=== PATIENT | male | born 1940 | race Caucasian/White ===

== ENCOUNTER 2021-09-25 14:19 | Inpatient (IN) | payer MEDICARE, SELFPAY ==
--- NOTE | ~2021-09-25 | XR_ITS ---
EXAMINATION: XR CHEST CLINICAL INFORMATION: Question pneumonia COMPARISON: 04/05/2016 TECHNIQUE: Frontal view of the chest was obtained. FINDINGS: Low lung volumes crowd the bronchovascular markings. Possible streaky opacity right suprahilar region. Lower lobes are obscured from assessment. No pneumothorax. No large pleural effusion. Normal heart size. Aorta is tortuous and atherosclerotic. Colonic interposition redemonstrated. XR/XR chest 1V IMPRESSION: Limited exam. Right suprahilar streaky opacity could represent infiltrate or summation shadow.
[2021-09-25 14:40] VITALS: BP 90/30; BP 99/54; PULSE 76; PULSE 77; RESP 18; TEMP 37.4; O2SAT 94; O2SAT 96; BMI 25.0
--- NOTE | 2021-09-25 14:49 | ED_ITS ---
HPI - Male Genitourinary General Chief complaint: Urogenital-Male Stated complaint: PENIS PAIN/BLEEDING S/P PULLING F/C OUT PER EMS Time Seen by Provider: 09/25/21 14:44 Source: patient, EMS and RN notes reviewed Mode of arrival: EMS Limitations: no limitations History of Present Illness HPI Narrative: 81-year-old male came in from [facility], incidentally patient pulled Zaman catheter from his penis in complaining of penis pain. No anticoagulation therapy. Related Data Allergies Allergy/AdvReac Type Severity Reaction Status Date / Time Amivhtm-ZTZ-RfV Reductase Allergy Unknown MUSCLE Unverified 01/04/20 17:59 Inhibitor ACHES [SWXBYIO-NVE-JFZ REDUCTASE INHIBITOR] Review of Systems Review of Systems: All other systems are reviewed and are negative Constitutional: Reports as per HPI and Reports no additional constitutional complaints Eyes: Reports as per HPI and Reports no additional eye complaints Reports system reviewed and no additional complaints, except as documented Cardiovascular: Reports as per HPI and Reports no additional cardiovascular complaints Respiratory: Reports as per HPI and Reports no additional respiratory complaints Gastrointestinal: Reports as per HPI and Reports no additional gastrointestinal complaints Genitourinary: Reports no additional female genitourinary complaints Musculoskeletal: Reports no additional musculoskeletal complaints Skin/Breast: Reports system reviewed and no additional complaints, except as docu Psychiatric: Reports no additional psychiatric complaints Endocrine: Reports no additional endocrine complaints Hematologic/Lymphatic: Reports no additional hematologic/lymphatic complaints Allergic/Immunologic: Reports no additional allergic/immunologic complaints Reports system reviewed and no additional complaints, except as documented and Reports Abnormal speech present [facility] Social History Social History Advance Directives: No Advance Directives Information Provided: No Physical Exam Vital Signs: Vital Signs: Last Vital Signs Temp 99.4 F 09/25/21 14:40 Pulse 76 09/25/21 14:40 Resp 18 09/25/21 14:40 BP 99/54 L 09/25/21 14:40 Pulse Ox 96 09/25/21 14:40 O2 Del Method 09/25/21 14:40 BMI result Body Mass Index 25.0 Vital signs have been reviewed as appeared to be correct. Blood pressure normal. Heart rate normal. Respiration rate normal. Temperature normal. Oxygen saturation normal. Appearance: Alert. Oriented X3. No acute distress. Head: Normal external exam. Normocephalic. Atraumatic. No Hughes signs noted. No raccoon eyes noted Eyes: PERRLA. EOMI. Conjunctiva and sclera normal. Eyelids normal. ENT: TM's Normal. Pharynx normal. Uvula midline. Moist mucous membranes. No trismus noted. No drooling noted. No muffled voice noted. Neck: Normal inspection. Neck supple. FROM. No adenopathy. Thyroid Normal. No meningeal signs. No neck mass noted. CVS: Normal heart rate and rhythm. Heart sound normal. No murmurs noted. Pulses normal throughout. Respiratory: No respiratory distress. Painless inspiration. Breath sounds normal. No wheezes/rales/rhonchi noted. Chest nontender. No accessory muscle usage noted or decreased air movement noted. Abdomen: Soft and nontender. Bowel sounds normal in all 4 quadrants. No distention noted. No organomegaly noted. No visible injury noted. : Blood out of the meatus. Back: No CVA tenderness. Full range of motion noted. Skin: Skin warm and dry. Normal skin color. Normal skin turgor. No rashes/lesions/lacerations noted. Extremities: No lower extremity edema. Extremities exhibit normal range of motion. Extremities nontender. Neuro: Oriented X 3. Cranial nerve exam: II-XII are grossly intact No motor deficit. No sensory deficit. Reflexes normal. Course Course Course Narrative: 81-year-old male presented with hematuria after for forcible removal of inflated Zaman catheter by accident, patient has no anticoagulation well consider 3 ways Zaman catheter and CBI and check a CBC with, will sign out to Dr. Snyder. Discharge Plan Discharge Clinical Impression: Hematuria Patient Disposition: Still a Patient
[2021-09-25] MEDS: Lidocaine HCl 2 % Urojet 10 ML JEL.PF.APP TOPICAL (15:57)
[2021-09-25 16:47] LABS: Basophils Percent Auto 0.2 % (0-2); Eosinophils Absolute Auto 0.2 X10*3/uL (0.0-0.4); Eosinophils Percent Auto 1.4 % (0-4); Hematocrit 39.2 % (42.0-52.0); Hemoglobin 12.4 g/dl (14.0-18.0); Imm Gran Abs Auto 0.08 X10*3/uL (0.00-0.03); Imm Gran Pct Auto 0.5 % (0.0-0.4); Lymphocytes Absolute Auto 0.7 X10*3/uL (1.2-4.9); MANUAL DIFF FLAG SCAN; Mean Corpuscular HGB Conc 31.6 g/dl (31.0-36.0); Mean Corpuscular Hemoglobin 28.4 pg (27.0-33.0); Mean Corpuscular Volume 89.7 fL (80.0-98.0); Mean Platelet Volume 10.2 fL (9.4-12.4); Monocytes Absolute Auto 0.7 X10*3/uL (0.1-1.2); Monocytes Percent Auto 3.8 % (2-11); Neutrophils Absolute Auto 15.3 x10*3/uL (2.0-8.3); Neutrophils Percent Auto 90.1 % (45-73); Platelet Count 229 X10*3/uL (160-400); Red Blood Count 4.37 X10*6/uL (4.60-5.80); Red Cell Distribution Width 14.6 % (11.0-16.0); SCAN SMEAR FLAG 1
[2021-09-25 16:55] LABS: Prothrombin Time 11.4 SEC (9.9-13.0)
[2021-09-25 16:57] LABS: Partial Thromboplastin Time 32.7 SEC (24.1-38.0)
[2021-09-25 17:09] LABS: Anion Gap 16 (12-20); Blood Urea Nitrogen 46 mg/dL (9-16); Calcium 8.5 mg/dL (8.4-10.2); Carbon Dioxide 22 mmol/L (22-29); Chloride 102 mmol/L (96-108); Creatinine Clr Calc Pharmacy 25.6; Estimated Glomerular Filt Rate 28; Glucose Random 132 mg/dL (60-115); Potassium 4.2 mmol/L (3.3-5.1); Sodium 136 mmol/L (135-145)
[2021-09-25 17:13] LABS: SLIDE REVIEW VERIFIED
--- NOTE | 2021-09-25 17:37 | PC.NURSE ---
Addendum entered by Carl Desai 09/25/21 17:45: also it was noted by this rn that pt had a 22 ga iv in his l lower arm which ems had reported was present at the snf he was picked up from. iv was dc by this rn Original Note: at apporx 1615 this rn attempted to place a 3 way faith cath after it was noted that pt's brief was soaked in red urine. Faith was attempted with sterile technique and was inserted succesfully and cath initialy drained approx 10ml dork clotted blood. cath was not able to be flushed manually or with saline bag to gravity. Faith was removed. at approx 1730 md farrell was able to place a coude catheter which was flushed with saline and is now draining well.
--- NOTE | 2021-09-25 18:00 | PC.NURSE ---
pt arrived w IV dated 09/22/21, EMS unsure if IV was from [facility] or pt's recent admission at [facility]. IV discontinued.
[2021-09-25 18:45] LABS: Lactic Acid 2.4 mmol/L (0.5-2.0)
[2021-09-25 18:48] LABS: Appearance Urine HAZY; Color Urine OTHER; Glucose Urine UA NEG (NEG); Leukocyte Esterase Urine 1+ (NEG); Nitrite Urine NEG (NEG); PH 5.5 (5.0-8.0); UACC Culture Trigger YES; Urine Blood 3+ (NEG); Urine Ketones NEG (NEG); Urine Protein 1+ MG/DL (NEG-TRACE)
[2021-09-25 18:53] LABS: Bacteria Urine 1+ /LPF; RBC Urine 50-75 /HPF (0); Squamous Epithelial Cell Urine TRACE /LPF
--- NOTE | 2021-09-25 19:58 | PC.NURSE ---
pt declines 2nd second set of blood cultures, ok per provider to start abx. pt attempted to walk away from bed with faith in place, some increased bleeding noted, provider notified and observed, area cleaned.
[2021-09-25] MEDS: Nitrofurantoin Monohyd/M-Cryst 100 MG CAPSULE PO (20:05)
--- NOTE | 2021-09-25 20:06 | PC.NURSE ---
pt medicated per provider order.
[2021-09-25 20:27] LABS: Reflex Lactate? Lactic Acid Added
[2021-09-25 21:38] LABS: ~Lactic Acid-LAB USE ONLY 1.2 mmol/L (0.5-2.0)
[2021-09-25 22:40] VITALS: BP 126/40; PULSE 87; RESP 16; TEMP 36.6; O2SAT 93
[2021-09-25] MEDS: 0.9 % Sodium Chloride 1,000 ML 999 ML IVCONT (22:54)
[2021-09-25 23:33] VITALS: BP 128/57; PULSE 79; RESP 20; O2SAT 93
[2021-09-26 00:56] LABS: Anion Gap 15 (12-20); Blood Urea Nitrogen 37 mg/dL (9-16); Calcium 8.2 mg/dL (8.4-10.2); Carbon Dioxide 20 mmol/L (22-29); Chloride 105 mmol/L (96-108); Creatinine Clr Calc Pharmacy 29.9; Estimated Glomerular Filt Rate 33; Glucose Random 163 mg/dL (60-115); Sodium 136 mmol/L (135-145)
--- NOTE | 2021-09-26 01:14 | ED.MALEGU ---
HPI - Male Genitourinary General Chief complaint: Urogenital-Male Stated complaint: PENIS PAIN/BLEEDING S/P PULLING F/C OUT PER EMS Time Seen by Provider: 09/25/21 14:44 Source: patient, EMS and RN notes reviewed Mode of arrival: EMS Limitations: no limitations Related Data Allergies Allergy/AdvReac Type Severity Reaction Status Date / Time Dlszmxx-OOW-VsU Reductase Allergy Unknown MUSCLE Unverified 01/04/20 17:59 Inhibitor ACHES [FEQTISE-QRX-XHY REDUCTASE INHIBITOR] [facility] Social History Social History Advance Directives: No Advance Directives Information Provided: No Physical Exam Vital Signs: Vital Signs: Last Vital Signs Temp 98 F 09/25/21 22:40 Pulse 79 09/25/21 23:33 Resp 20 09/25/21 23:33 BP 128/57 L 09/25/21 23:33 Pulse Ox 93 09/25/21 23:33 O2 Del Method 09/25/21 23:33 BMI result Body Mass Index 25.0 Course Course Course Narrative: Patient being admitted for KUMAR, hematuria, lactic acidosis likely secondary to dehydration. Sepsis is not suspected Discussed the patient with Dr. Morales. At this time, patient has not been hypotensive, tachycardic, or had any fever. Patient has already been given 1 dose of Macrobid. At this time, we will not continue any antibiotics MDM - Male Genitourinary Lab Data Result diagrams: 09/25/21 16:39 09/26/21 00:36 Labs: Lab Results 09/25/21 09/25/21 09/25/21 Range/Units 16:39 16:39 16:39 WBC 17.0 H (4.8-10.8) X10*3/uL RBC 4.37 L (4.60-5.80) X10*6/uL Hgb 12.4 L (14.0-18.0) g/dl Hct 39.2 L (42.0-52.0) % MCV 89.7 (80.0-98.0) fL MCH 28.4 (27.0-33.0) pg MCHC 31.6 (31.0-36.0) g/dl RDW 14.6 (11.0-16.0) % Plt Count 229 (160-400) X10*3/uL MPV 10.2 (9.4-12.4) fL Immature Gran % (Auto) 0.5 H (0.0-0.4) % Neut % (Auto) 90.1 H (45-73) % Lymph % (Auto) 4.0 L (20-40) % Dickenson % (Auto) 3.8 (2-11) % Eos % (Auto) 1.4 (0-4) % Baso % (Auto) 0.2 (0-2) % Lymph # (Auto) 0.7 L (1.2-4.9) X10*3/uL [place] # (Auto) 0.7 (0.1-1.2) X10*3/uL Eos # (Auto) 0.2 (0.0-0.4) X10*3/uL Baso # (Auto) 0.0 (0.0-0.2) X10*3/uL Abs Immat Gran (auto) 0.08 H (0.00-0.03) X10*3/uL Absolute Neuts (auto) 15.3 H (2.0-8.3) x10*3/uL Absolute Nucleated RBC 0.000 (0.0-0.012) X10*3/uL Nucleated RBC % (auto) 0.0 (0.0-0.2) /100WBC Smear Tech's Comments VERIFIED PT 11.4 (9.9-13.0) SEC INR 1.0 (0.9-1.1) APTT 32.7 (24.1-38.0) SEC Sodium 136 (135-145) mmol/L Potassium 4.2 (3.3-5.1) mmol/L Chloride 102 (96-108) mmol/L Carbon Dioxide 22 (22-29) mmol/L Anion Gap 16 (12-20) BUN 46 H (9-16) mg/dL Creatinine 2.25 H (0.5-1.4) mg/dL Estim Creat Clear Calc 25.6 Estimated GFR 28 Random Glucose 132 H (60-115) mg/dL Lactic Acid (0.5-2.0) mmol/L Lactic Acid F/U @ 2Hr (0.5-2.0) mmol/L Calcium 8.5 (8.4-10.2) mg/dL Urine Color Urine Appearance Urine pH (5.0-8.0) Ur Specific [place] (1.005-1.025) Urine Protein (NEG-TRACE) MG/DL Urine Glucose (UA) (NEG) MG/DL Urine Ketones (NEG) MG/DL Urine Blood (NEG) Urine Nitrite (NEG) Ur Leukocyte Esterase (NEG) Urine RBC (0) /HPF Urine WBC (0-4) /HPF Ur Squamous Epith Cells /LPF Urine Bacteria /LPF 09/25/21 09/25/21 09/25/21 Range/Units 18:24 18:42 21:17 WBC (4.8-10.8) X10*3/uL RBC (4.60-5.80) X10*6/uL Hgb (14.0-18.0) g/dl Hct (42.0-52.0) % MCV (80.0-98.0) fL MCH (27.0-33.0) pg MCHC (31.0-36.0) g/dl RDW (11.0-16.0) % Plt Count (160-400) X10*3/uL MPV (9.4-12.4) fL Immature Gran % (Auto) (0.0-0.4) % Neut % (Auto) (45-73) % Lymph % (Auto) (20-40) % Dickenson % (Auto) (2-11) % Eos % (Auto) (0-4) % Baso % (Auto) (0-2) % Lymph # (Auto) (1.2-4.9) X10*3/uL [place]enson # (Auto) (0.1-1.2) X10*3/uL Eos # (Auto) (0.0-0.4) X10*3/uL Baso # (Auto) (0.0-0.2) X10*3/uL Abs Immat Gran (auto) (0.00-0.03) X10*3/uL Absolute Neuts (auto) (2.0-8.3) x10*3/uL Absolute Nucleated RBC (0.0-0.012) X10*3/uL Nucleated RBC % (auto) (0.0-0.2) /100WBC Smear Tech's Comments PT (9.9-13.0) SEC INR (0.9-1.1) APTT (24.1-38.0) SEC Sodium (135-145) mmol/L Potassium (3.3-5.1) mmol/L Chloride (96-108) mmol/L Carbon Dioxide (22-29) mmol/L Anion Gap (12-20) BUN (9-16) mg/dL Creatinine (0.5-1.4) mg/dL Estim Creat Clear Calc Estimated GFR Random Glucose (60-115) mg/dL Lactic Acid 2.4 H* (0.5-2.0) mmol/L Lactic Acid F/U @ 2Hr 1.2 (0.5-2.0) mmol/L Calcium (8.4-10.2) mg/dL Urine Color OTHER A Urine Appearance HAZY Urine pH 5.5 (5.0-8.0) Ur Specific [place] 1.010 (1.005-1.025) Urine Protein 1+ H (NEG-TRACE) MG/DL Urine Glucose (UA) NEG (NEG) MG/DL Urine Ketones NEG (NEG) MG/DL Urine Blood 3+ H (NEG) Urine Nitrite NEG (NEG) Ur Leukocyte Esterase 1+ H (NEG) Urine RBC 50-75 H (0) /HPF Urine WBC 1-4 (0-4) /HPF Ur Squamous Epith Cells TRACE /LPF Urine Bacteria 1+ /LPF 09/26/21 Range/Units 00:36 WBC (4.8-10.8) X10*3/uL RBC (4.60-5.80) X10*6/uL Hgb (14.0-18.0) g/dl Hct (42.0-52.0) % MCV (80.0-98.0) fL MCH (27.0-33.0) pg MCHC (31.0-36.0) g/dl RDW (11.0-16.0) % Plt Count (160-400) X10*3/uL MPV (9.4-12.4) fL Immature Gran % (Auto) (0.0-0.4) % Neut % (Auto) (45-73) % Lymph % (Auto) (20-40) % Dickenson % (Auto) (2-11) % Eos % (Auto) (0-4) % Baso % (Auto) (0-2) % Lymph # (Auto) (1.2-4.9) X10*3/uL [place]enson # (Auto) (0.1-1.2) X10*3/uL Eos # (Auto) (0.0-0.4) X10*3/uL Baso # (Auto) (0.0-0.2) X10*3/uL Abs Immat Gran (auto) (0.00-0.03) X10*3/uL Absolute Neuts (auto) (2.0-8.3) x10*3/uL Absolute Nucleated RBC (0.0-0.012) X10*3/uL Nucleated RBC % (auto) (0.0-0.2) /100WBC Smear Tech's Comments PT (9.9-13.0) SEC INR (0.9-1.1) APTT (24.1-38.0) SEC Sodium 136 (135-145) mmol/L Potassium 4.0 (3.3-5.1) mmol/L Chloride 105 (96-108) mmol/L Carbon Dioxide 20 L (22-29) mmol/L Anion Gap 15 (12-20) BUN 37 H (9-16) mg/dL Creatinine 1.93 H (0.5-1.4) mg/dL Estim Creat Clear Calc 29.9 Estimated GFR 33 Random Glucose 163 H (60-115) mg/dL Lactic Acid (0.5-2.0) mmol/L Lactic Acid F/U @ 2Hr (0.5-2.0) mmol/L Calcium 8.2 L (8.4-10.2) mg/dL Urine Color Urine Appearance Urine pH (5.0-8.0) Ur Specific [place] (1.005-1.025) Urine Protein (NEG-TRACE) MG/DL Urine Glucose (UA) (NEG) MG/DL Urine Ketones (NEG) MG/DL Urine Blood (NEG) Urine Nitrite (NEG) Ur Leukocyte Esterase (NEG) Urine RBC (0) /HPF Urine WBC (0-4) /HPF Ur Squamous Epith Cells /LPF Urine Bacteria /LPF Discharge Plan Discharge Clinical Impression: Hematuria, Leukocytosis, Acidosis, lactic Patient Disposition: Admitted As Inpatient Instructions: Hematuria (ED) Referrals: Denys Rocha MD [Physician] - 1 day
[2021-09-26] MEDS: 0.9 % Sodium Chloride 1,000 ML 999 ML IVCONT (01:29)
--- NOTE | 2021-09-26 01:36 | PC.NURSE ---
2nd L of flds started per provider order.
--- NOTE | 2021-09-26 03:07 | P.HPHOSP_ITS ---
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 And noted blood followed by. Subsequently sent him to the ER for further evaluation. Patient mentioned that he was initially had pain but currently pain improved. Denies any fever chills cough. Denies any nausea vomiting or diarrhea. Denies any frequency urgency or burning. Review of all other systems is negative except mentioned above ER course: Per ER team patient on presentation noted to have hematuria, Zaman catheter replaced, status post arm bladder irrigation with improvement in hematuria. Urinalysis negative for infection. But on labs noted to have elevated creatinine of 2.2. Baseline creatinine 1.5. Given gentle IV fluids. Admitted to the hospital for further management. [facility] Medical History (Updated 10/09/21 @ 00:03 by Cailin Rodriges) Acidosis, lactic Dementia Encounter for assessment of decision-making capacity Gram-negative bacteremia Hematuria Leukocytosis Pertinent family history: Patient unable to provide information Social History Household Members: None Housing: Residential Housing Other:: states lives at home Do you presently have visiting nurse or other home services: No Patient Tobacco Use Status: Never used Tobacco Meds Allergies Allergy/AdvReac Type Severity Reaction Status Date / Time Jwanqfn-QSJ-WiR Reductase Allergy Unknown MUSCLE Unverified 01/04/20 17:59 Inhibitor ACHES [MIEUEIH-XEL-NZI REDUCTASE INHIBITOR] clopidogrel Allergy Unknown Verified 09/26/21 04:32 codeine Allergy Unknown Verified 09/26/21 04:32 Home Medications Medication Instructions Recorded Confirmed Last Taken Type aspirin 81 mg tablet,delayed 81 mg PO DAILY 09/26/21 09/26/21 Unknown History release atorvastatin 80 mg tablet 80 mg PO DAILY 09/26/21 09/26/21 Unknown History gabapentin 100 mg capsule 100 mg PO BEDTIME 09/26/21 09/26/21 Unknown History hydrochlorothiazide 25 mg tablet 25 mg PO DAILY 09/26/21 09/26/21 Unknown History isosorbide mononitrate 30 mg 30 mg PO DAILY 09/26/21 09/26/21 Unknown History tablet,extended release 24 hr levothyroxine 50 mcg tablet 50 mcg PO DAILY 09/26/21 09/26/21 Unknown History lisinopril 10 mg tablet 10 mg PO DAILY 09/26/21 09/26/21 Unknown History methylphenidate HCl 10 mg tablet 10 mg PO DAILY 09/26/21 09/26/21 Unknown History sennosides 8.6 mg tablet (senna) 8.6 mg PO BEDTIME 09/26/21 09/26/21 Unknown History sertraline 100 mg tablet 100 mg PO DAILY 09/26/21 09/26/21 Unknown History tamsulosin 0.4 mg capsule (Flomax) 0.4 mg PO BEDTIME 09/26/21 09/26/21 Unknown History Physical Exam Vital Signs and Narrative: Vital Signs: Last Vital Signs Temp 98 F 09/25/21 22:40 Pulse 79 09/25/21 23:33 Resp 20 09/25/21 23:33 BP 128/57 L 09/25/21 23:33 Pulse Ox 93 09/25/21 23:33 O2 Del Method 09/25/21 23:33 BMI result Body Mass Index 25.0 Gen: Appears be in no acute distress HEENT: NCAT, Moist mucosa. Pulmonary: Vesicular breath sounds, fair air entry CVS: Normal S1-S2 Abdomen: BS+, Soft, Nontender Extremities: Warm well perfused Neuro: Alert and awake. Grossly nonfocal Genitourinary: Status post Zaman catheter replacement. Results Labs CBC and Chem 7: 09/29/21 06:39 10/01/21 09:09 Labs: Laboratory Results - last 24 hr 09/25/21 09/25/21 09/25/21 16:39 16:39 16:39 MCV 89.7 MCH 28.4 MCHC 31.6 RDW 14.6 Plt Count 229 MPV 10.2 Immature Gran % (Auto) 0.5 H Neut % (Auto) 90.1 H Lymph % (Auto) 4.0 L [place] % (Auto) 3.8 Eos % (Auto) 1.4 Baso % (Auto) 0.2 Lymph # (Auto) 0.7 L [place] # (Auto) 0.7 Eos # (Auto) 0.2 Baso # (Auto) 0.0 Abs Immat Gran (auto) 0.08 H Absolute Neuts (auto) 15.3 H Absolute Nucleated RBC 0.000 Nucleated RBC % (auto) 0.0 Smear Tech's Comments VERIFIED PT 11.4 INR 1.0 APTT 32.7 Anion Gap 16 Estim Creat Clear Calc 25.6 Estimated GFR 28 Random Glucose 132 H Lactic Acid Lactic Acid F/U @ 2Hr Calcium 8.5 Urine Color Urine Appearance Urine pH Ur Specific [place] Urine Protein Urine Glucose (UA) Urine Ketones Urine Blood Urine Nitrite Ur Leukocyte Esterase Urine RBC Urine WBC Ur Squamous Epith Cells Urine Bacteria 09/25/21 09/25/21 09/25/21 18:24 18:42 21:17 MCV MCH MCHC RDW Plt Count MPV Immature Gran % (Auto) Neut % (Auto) Lymph % (Auto) [place] % (Auto) Eos % (Auto) Baso % (Auto) Lymph # (Auto) Carson # (Auto) Eos # (Auto) Baso # (Auto) Abs Immat Gran (auto) Absolute Neuts (auto) Absolute Nucleated RBC Nucleated RBC % (auto) Smear Tech's Comments PT INR APTT Anion Gap Estim Creat Clear Calc Estimated GFR Random Glucose Lactic Acid 2.4 H* Lactic Acid F/U @ 2Hr 1.2 Calcium Urine Color OTHER A Urine Appearance HAZY Urine pH 5.5 Ur Specific [place] 1.010 Urine Protein 1+ H Urine Glucose (UA) NEG Urine Ketones NEG Urine Blood 3+ H Urine Nitrite NEG Ur Leukocyte Esterase 1+ H Urine RBC 50-75 H Urine WBC 1-4 Ur Squamous Epith Cells TRACE Urine Bacteria 1+ 09/26/21 00:36 MCV MCH MCHC RDW Plt Count MPV Immature Gran % (Auto) Neut % (Auto) Lymph % (Auto) [place] % (Auto) Eos % (Auto) Baso % (Auto) Lymph # (Auto) [place] # (Auto) Eos # (Auto) Baso # (Auto) Abs Immat Gran (auto) Absolute Neuts (auto) Absolute Nucleated RBC Nucleated RBC % (auto) Smear Tech's Comments PT INR APTT Anion Gap 15 Estim Creat Clear Calc 29.9 Estimated GFR 33 Random Glucose 163 H Lactic Acid Lactic Acid F/U @ 2Hr Calcium 8.2 L Urine Color Urine Appearance Urine pH Ur Specific [place] Urine Protein Urine Glucose (UA) Urine Ketones Urine Blood Urine Nitrite Ur Leukocyte Esterase Urine RBC Urine WBC Ur Squamous Epith Cells Urine Bacteria Assessment and Plan (1) Acute kidney injury: Status: Acute Plan 81-year-old male with a past medical history of hypertension, hyperlipidemia, CAD, peripheral vascular disease status post stenting, 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 KUMAR on CKD: Reportedly patient baseline creatinine is 1.5. Creatinine on presentation noted to be 2.25. Patient received IV fluids with improving creatinine. Lactic acidosis: Likely in setting of dehydration. Gentle IV fluids. Leukocytosis: Likely reactive. No evidence of infection. Will follow fever curve. Hold of antibiotics for now. Confusion: Patient noted to be mildly confused. Likely sundowning. Supportive care. Urinalysis negative Chest x-ray pending History of BPH with obstruction/chronic indwelling Zaman: Continue home Flomax. Accidentally pulling out of the Zaman-resultant hematuria; Zaman was replaced in the ER. Status post irrigation with improvement in hematuria. DVT prophylaxis: SCD boots Code status: Full code, patient has MOLST form Healthcare proxy: Patient's daughter [phone]. I called-no response. Quality Stroke Does the patient have a stroke diagnosis?: No VTE Prior VTE?: No VTE Risk Level:: Medical - moderate - high VTE Device Contraindication: N/A - Device Ordered VTE Drug Contraindication: Treatment Not Indicated
--- NOTE | 2021-09-26 03:18 | PC.NURSE ---
pt exit seeking, pulled out IV, pt requiring increased redirection back to bed. increased bleeding from penis - faith in place, patent and draining, pt cleaned and linens changed. hospitalist notified. hospital bed acquired for pt w bed alarm.
[2021-09-26 04:05] LABS: Basophils Absolute Auto 0.1 X10*3/uL (0.0-0.2); Basophils Percent Auto 0.4 % (0-2); Eosinophils Absolute Auto 0.1 X10*3/uL (0.0-0.4); Eosinophils Percent Auto 0.8 % (0-4); Hematocrit 39.6 % (42.0-52.0); Hemoglobin 12.6 g/dl (14.0-18.0); Imm Gran Abs Auto 0.07 X10*3/uL (0.00-0.03); Imm Gran Pct Auto 0.6 % (0.0-0.4); Lymphocytes Absolute Auto 0.5 X10*3/uL (1.2-4.9); MANUAL DIFF FLAG SCAN; Mean Corpuscular HGB Conc 31.8 g/dl (31.0-36.0); Mean Corpuscular Hemoglobin 28.4 pg (27.0-33.0); Mean Corpuscular Volume 89.4 fL (80.0-98.0); Monocytes Absolute Auto 0.6 X10*3/uL (0.1-1.2); Monocytes Percent Auto 4.9 % (2-11); Neutrophils Absolute Auto 11.2 x10*3/uL (2.0-8.3); Neutrophils Percent Auto 89.3 % (45-73); PLT CLUMP 1; Red Blood Count 4.43 X10*6/uL (4.60-5.80); Red Cell Distribution Width 14.4 % (11.0-16.0); SCAN SMEAR FLAG 1
[2021-09-26] MEDS: 0.9 % Sodium Chloride 1,000 ML 100 ML IVCONT ×2 (04:08→14:12)
[2021-09-26 04:17] VITALS: BP 182/79; PULSE 85; RESP 20; O2SAT 92
[2021-09-26 04:17] LABS: Anion Gap 14 (12-20); Blood Urea Nitrogen 32 mg/dL (9-16); Calcium 8.4 mg/dL (8.4-10.2); Carbon Dioxide 22 mmol/L (22-29); Chloride 104 mmol/L (96-108); Creatinine Clr Calc Pharmacy 33.2; Estimated Glomerular Filt Rate 38; Glucose Random 132 mg/dL (60-115); Potassium 3.8 mmol/L (3.3-5.1); Sodium 136 mmol/L (135-145)
[2021-09-26 04:22] LABS: SLIDE REVIEW VERIFIED; White Blood Count 12.5 X10*3/uL (4.8-10.8)
[2021-09-26] MEDS: Piperacillin Sodium/Tazobactam 3.375 GM in 0.9 % Sodium Chloride 50 ML IV ×3 (10:09→22:18)
[2021-09-26 10:27] LABS: IDNOW Serial# 08D9AD1C
[2021-09-26 10:28] LABS: COVID-19 Test Negative (Negative)
[2021-09-26 12:29] VITALS: BP 193/69; PULSE 77; RESP 16; O2SAT 94
--- NOTE | 2021-09-26 14:50 | PHA.MEDREC ---
Pharmacy Consult ? Medication Reconciliation Pharmacy has completed the medication reconciliation.
--- NOTE | 2021-09-26 15:34 | PM.EVENT ---
Event Note Date of Service: 09/26/21 Event Note: 81-year-old male admitted overnight secondary to urethral trauma. Hematuria resolved with CBI. Exam is essentially unchanged. Blood cultures 2/2 GNR likely urine source. Covered with Zosyn follow-up cultures
--- NOTE | 2021-09-26 18:04 | PC.NURSE ---
patient awake/alert, speaking in full sentences/[place], pt denies pain/discomfort at this time, faith cath patient/draining dark yellow urine, call [place] within reach, will continue to monitor.
--- NOTE | 2021-09-26 20:00 | PC.NURSE ---
nurse to call back to get report
[2021-09-26 20:36] VITALS: BP 117/49; PULSE 72; RESP 16; O2SAT 95
[2021-09-26 20:51] VITALS: BP 140/65; PULSE 67; RESP 20; TEMP 36.6; O2SAT 94
[2021-09-26] MEDS: Sennosides 8.6 MG TABLET PO (22:19)
[2021-09-26] MEDS: Tamsulosin HCL 0.4 MG CAPSULE PO (22:19)
[2021-09-26] MEDS: Gabapentin 100 MG CAPSULE PO (22:19)
[2021-09-26 23:19] VITALS: BP 158/52; PULSE 70; RESP 18; TEMP 36.2; O2SAT 98
[2021-09-27] MEDS: 0.9 % Sodium Chloride 1,000 ML 100 ML IVCONT ×2 (00:03→09:59)
[2021-09-27 03:23] VITALS: BP 137/65; PULSE 79; RESP 18; TEMP 36.3; O2SAT 97
[2021-09-27] MEDS: Levothyroxine Sodium 50 MCG TABLET PO (05:17)
[2021-09-27] MEDS: Piperacillin Sodium/Tazobactam 3.375 GM in 0.9 % Sodium Chloride 50 ML IV ×4 (05:17→21:27)
[2021-09-27 06:22] LABS: MANUAL DIFF FLAG NO
[2021-09-27 06:36] LABS: Basophils Absolute Auto 0.1 X10*3/uL (0.0-0.2); Basophils Percent Auto 0.6 % (0-2); Eosinophils Absolute Auto 0.5 X10*3/uL (0.0-0.4); Eosinophils Percent Auto 6.5 % (0-4); Hematocrit 36.7 % (42.0-52.0); Imm Gran Abs Auto 0.04 X10*3/uL (0.00-0.03); Imm Gran Pct Auto 0.5 % (0.0-0.4); Lymphocytes Absolute Auto 0.9 X10*3/uL (1.2-4.9); Lymphocytes Percent Auto 10.8 % (20-40); Mean Corpuscular HGB Conc 32.7 g/dl (31.0-36.0); Mean Corpuscular Hemoglobin 29.1 pg (27.0-33.0); Mean Corpuscular Volume 88.9 fL (80.0-98.0); Mean Platelet Volume 10.8 fL (9.4-12.4); Monocytes Absolute Auto 0.9 X10*3/uL (0.1-1.2); Monocytes Percent Auto 11.2 % (2-11); Neutrophils Absolute Auto 5.6 x10*3/uL (2.0-8.3); Neutrophils Percent Auto 70.4 % (45-73); Platelet Count 160 X10*3/uL (160-400); Red Blood Count 4.13 X10*6/uL (4.60-5.80); Red Cell Distribution Width 14.1 % (11.0-16.0); White Blood Count 7.9 X10*3/uL (4.8-10.8)
[2021-09-27 06:50] LABS: Alanine Aminotransferase 20 U/L (0-40); Albumin Level 3.1 g/dL (3.5-5.0); Alkaline Phosphatase 83 U/L (39-117); Anion Gap 12 (12-20); Aspartate Amino Transferase 31 U/L (5-37); Bilirubin Total 0.7 mg/dL (0.0-1.0); Blood Urea Nitrogen 23 mg/dL (9-16); Calcium 8.2 mg/dL (8.4-10.2); Carbon Dioxide 24 mmol/L (22-29); Chloride 104 mmol/L (96-108); Creatinine Clr Calc Pharmacy 40.6; Estimated Glomerular Filt Rate 48; Glucose Fasting 107 mg/dL (60-99); Potassium 3.9 mmol/L (3.3-5.1); Sodium 136 mmol/L (135-145); Total Protein 6.6 g/dL (6.5-8.0)
[2021-09-27 08:00] VITALS: BP 138/70; PULSE 65; RESP 16; TEMP 36.2; O2SAT 94
[2021-09-27] MEDS: lisinopriL 10 MG TABLET PO (09:56)
[2021-09-27] MEDS: Methylphenidate HCl 10 MG TABLET PO (09:56)
[2021-09-27] MEDS: Atorvastatin Calcium 80 MG TABLET PO (09:56)
[2021-09-27] MEDS: Isosorbide Mononitrate 30 MG TAB.ER.24H PO (09:56)
[2021-09-27] MEDS: Sertraline HCL 100 MG TABLET PO (09:56)
[2021-09-27] MEDS: Aspirin Enteric Coated 81 MG TABLET.DR PO (09:57)
[2021-09-27 12:00] VITALS: BP 129/65; PULSE 58; RESP 17; TEMP 36.9; O2SAT 95
--- NOTE | 2021-09-27 13:01 | P.PNIM_ITS ---
Subjective Subjective Date of Service: 09/27/21 Interval History: no acute issues overnight; Review of Systems denies chest pain Denies shortness of breath Denies nausea vomiting diarrhea Denies fever chills Physical Exam Vital Signs: Vital Signs: Last Vital Signs Temp 98.5 F 09/27/21 12:00 Pulse 58 09/27/21 12:00 Resp 17 09/27/21 12:00 BP 129/65 09/27/21 12:00 Pulse Ox 95 09/27/21 12:00 O2 Del Method 09/27/21 12:00 BMI result Body Mass Index 25.0 Const: Other: awake no acute distress Resp: Other: clear to auscultation bilaterally no rales rhonchi or whee Cardio: Other: no S4; positive S1-S2; no S3 murmurs rubs gallops GI: Other: soft nontender nondistended normoactive bowel sounds Extrem: Other: no edema bilaterally Objective Data Active Medications Acetaminophen (Acetaminophen 325 Mg Tablet) 650 mg PO Q6H PRN PRN Reason: Pain, Mild (Pain Scale 1-3) Aspirin (Aspirin Enteric Coated 81 Mg Tablet.Dr) 81 mg PO DAILY [facility] Last Admin: 09/27/21 09:57 Dose: 81 mg Documented By: JAGUAR Atorvastatin Calcium (Atorvastatin Calcium 80 Mg Tablet) 80 mg PO DAILY [facility] Last Admin: 09/27/21 09:56 Dose: 80 mg Documented By: JAGUAR Gabapentin (Gabapentin 100 Mg Capsule) 100 mg PO BEDTIME [facility] Last Admin: 09/26/21 22:19 Dose: 100 mg Documented By: COLRAVINDER Sodium Chloride (Ns) 1,000 mls @ 100 mls/hr IVCONT .Q10H [facility] Last Admin: 09/27/21 09:59 Dose: 100 mls/hr Documented By: JAGUAR Piperacillin Sod/Tazobactam (Sod 3.375 gm/ Sodium Chloride) 50 mls @ 100 mls/hr IV Q6H [facility] Last Infusion: 09/27/21 10:45 Dose: 0 mls/hr Documented By: JAGUAR Isosorbide Mononitrate (Isosorbide Mononitrate 30 Mg Tab.Er.24h) 30 mg PO DAILY [facility]; Protocol Last Admin: 09/27/21 09:56 Dose: 30 mg Documented By: JAGUAR Levothyroxine Sodium (Levothyroxine Sodium 50 Mcg Tablet) 50 mcg PO DAILY@0600 [facility] Last Admin: 09/27/21 05:17 Dose: 50 mcg Documented By: KESHIA Lisinopril (Lisinopril 10 Mg Tablet) 10 mg PO DAILY [facility]; Protocol Last Admin: 09/27/21 09:56 Dose: 10 mg Documented By: JAGUAR Melatonin (Melatonin 3 Mg Tablet) 6 mg PO BEDTIME PRN PRN Reason: Insomnia Methylphenidate HCl (Methylphenidate Hcl 10 Mg Tablet) 10 mg PO DAILY [facility] Last Admin: 09/27/21 09:56 Dose: 10 mg Documented By: JAGUAR Senna (Sennosides 8.6 Mg Tablet) 17.2 mg PO BEDTIME PRN PRN Reason: Constipation Senna (Sennosides 8.6 Mg Tablet) 8.6 mg PO BEDTIME [facility] Last Admin: 09/26/21 22:19 Dose: 8.6 mg Documented By: EDISON Sertraline HCl (Sertraline Hcl 100 Mg Tablet) 100 mg PO DAILY [facility] Last Admin: 09/27/21 09:56 Dose: 100 mg Documented By: JAGUAR Sodium Chloride (0.9 % Sodium Chloride Flush 3 Ml Syringe) 3 ml IVFLUSH QSHIFT [facility] Last Admin: 09/27/21 09:57 Dose: Not Given Documented By: JAGUAR Non-Admin Reason: IV Running Tamsulosin HCl (Tamsulosin Hcl 0.4 Mg Capsule) 0.4 mg PO BEDTIME [facility] Last Admin: 09/26/21 22:19 Dose: 0.4 mg Documented By: EDISON Labs CBC & Chem 7: 09/27/21 05:49 09/27/21 05:49 Labs: Laboratory Results - last 24 hr 09/27/21 09/27/21 05:49 05:49 MCV 88.9 MCH 29.1 MCHC 32.7 RDW 14.1 Plt Count 160 D MPV 10.8 Immature Gran % (Auto) 0.5 H Neut % (Auto) 70.4 Lymph % (Auto) 10.8 L [place] % (Auto) 11.2 H Eos % (Auto) 6.5 H Baso % (Auto) 0.6 Lymph # (Auto) 0.9 L [place] # (Auto) 0.9 Eos # (Auto) 0.5 H Baso # (Auto) 0.1 Abs Immat Gran (auto) 0.04 H Absolute Neuts (auto) 5.6 Absolute Nucleated RBC 0.000 Nucleated RBC % (auto) 0.0 Anion Gap 12 Estim Creat Clear Calc 40.6 Estimated GFR 48 Fasting Glucose 107 H Calcium 8.2 L Total Bilirubin 0.7 AST 31 ALT 20 Alkaline Phosphatase 83 Total Protein 6.6 Albumin 3.1 L Microbiology Microbiology Results: Microbiology 09/25/21 21:17 Blood Culture - Preliminary Blood - Venous Gram negative king 09/25/21 19:12 Blood Culture - Preliminary Blood - Venous Gram negative king 09/25/21 18:49 Urine Culture - Final Urine clean catch - Urine willis top No growth. Assessment and Plan (1) Gram-negative bacteremia: Status: Acute (2) Dementia: Status: Acute Plan 81-year-old male presented with hematuria after for forcible removal of inflated Zaman catheter by accident; developed Gram-negative bacteremia during admission 1. Gram-negative bacteremia - IV Zosyn pending cultures - continue Zaman catheter - irrigate p.r.n. 2.Hypertension - acceptable control on current therapies - adjust as indicated 3.Dementia - no agitated behavior - continue current therapies will require ongoing hospitalization for IV antibiotics to treat Gram-negative bacteremia Quality Stroke Does the patient have a stroke diagnosis?: No VTE Prior VTE?: No VTE Risk Level:: Medical - moderate - high VTE Device Contraindication: N/A - Device Ordered VTE Drug Contraindication: Treatment Not Indicated
--- NOTE | 2021-09-27 13:24 | MHC.CM.PN ---
PATIENT IS IN FROM [facility] WHERE HE IS SHORT TERM REHAB. 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 REFERRAL PLACED TO [facility] FOR POTENTIAL RETURN. DAUGHTER WANTS PATIENT TO BE LTC, BUT IS AWARE THAT THERE IS NO INDICATION OF A PAYER SOURCE FOR THESE SERVICES. CASE MANAGEMENT CAN CONTACT MARISA SPENCE DURING WORK WEEK. IMM 09/27 IN CHART.
[2021-09-27 15:51] VITALS: BP 110/56; PULSE 66; RESP 17; TEMP 37.1; O2SAT 95
[2021-09-27 19:39] VITALS: BP 106/53; PULSE 64; RESP 17; TEMP 36.9; O2SAT 94
[2021-09-27] MEDS: Gabapentin 100 MG CAPSULE PO (21:27)
[2021-09-27] MEDS: Tamsulosin HCL 0.4 MG CAPSULE PO (21:27)
[2021-09-27] MEDS: Sennosides 8.6 MG TABLET PO (21:27)
[2021-09-27 23:26] VITALS: BP 136/56; PULSE 63; RESP 16; TEMP 36.1; O2SAT 93
[2021-09-28] MEDS: Acetaminophen 325 MG TABLET 650 MG PO ×2 (02:26→18:30)
[2021-09-28 03:09] VITALS: BP 133/63; PULSE 81; RESP 16; TEMP 36.2; O2SAT 94
[2021-09-28] MEDS: Piperacillin Sodium/Tazobactam 3.375 GM in 0.9 % Sodium Chloride 50 ML IV ×2 (03:59→10:08)
[2021-09-28] MEDS: Levothyroxine Sodium 50 MCG TABLET PO (06:04)
[2021-09-28 06:48] LABS: MANUAL DIFF FLAG NO
[2021-09-28 06:51] LABS: Basophils Absolute Auto 0.1 X10*3/uL (0.0-0.2); Basophils Percent Auto 0.7 % (0-2); Eosinophils Absolute Auto 0.7 X10*3/uL (0.0-0.4); Eosinophils Percent Auto 9.9 % (0-4); Hematocrit 31.1 % (42.0-52.0); Imm Gran Abs Auto 0.04 X10*3/uL (0.00-0.03); Imm Gran Pct Auto 0.6 % (0.0-0.4); Lymphocytes Absolute Auto 1.2 X10*3/uL (1.2-4.9); Lymphocytes Percent Auto 17.5 % (20-40); Mean Corpuscular HGB Conc 32.2 g/dl (31.0-36.0); Mean Corpuscular Hemoglobin 28.5 pg (27.0-33.0); Mean Corpuscular Volume 88.6 fL (80.0-98.0); Mean Platelet Volume 10.5 fL (9.4-12.4); Monocytes Percent Auto 14.3 % (2-11); Neutrophils Absolute Auto 3.9 x10*3/uL (2.0-8.3); Platelet Count 169 X10*3/uL (160-400); Red Blood Count 3.51 X10*6/uL (4.60-5.80); Red Cell Distribution Width 14.1 % (11.0-16.0); White Blood Count 6.9 X10*3/uL (4.8-10.8)
[2021-09-28 07:19] LABS: Alanine Aminotransferase 21 U/L (0-40); Albumin Level 2.9 g/dL (3.5-5.0); Alkaline Phosphatase 75 U/L (39-117); Anion Gap 11 (12-20); Aspartate Amino Transferase 30 U/L (5-37); Bilirubin Total 0.5 mg/dL (0.0-1.0); Blood Urea Nitrogen 22 mg/dL (9-16); Calcium 8.1 mg/dL (8.4-10.2); Carbon Dioxide 23 mmol/L (22-29); Chloride 107 mmol/L (96-108); Creatinine Clr Calc Pharmacy 36.8; Estimated Glomerular Filt Rate 42; Glucose Fasting 97 mg/dL (60-99); Potassium 3.7 mmol/L (3.3-5.1); Sodium 137 mmol/L (135-145)
[2021-09-28 07:45] VITALS: BP 153/84; PULSE 69; RESP 17; TEMP 36.4; O2SAT 94
[2021-09-28] MEDS: lisinopriL 10 MG TABLET PO (10:07)
[2021-09-28] MEDS: Aspirin Enteric Coated 81 MG TABLET.DR PO (10:07)
[2021-09-28] MEDS: Methylphenidate HCl 10 MG TABLET PO (10:07)
[2021-09-28] MEDS: Atorvastatin Calcium 80 MG TABLET PO (10:08)
[2021-09-28] MEDS: Sertraline HCL 100 MG TABLET PO (10:08)
[2021-09-28] MEDS: Isosorbide Mononitrate 30 MG TAB.ER.24H PO (10:08)
--- NOTE | 2021-09-28 10:14 | HO.PM.IMPN ---
Subjective Subjective Date of Service: 09/28/21 Interval History: no acute issues overnight; remains afebrile Review of Systems denies chest pain Denies shortness of breath Denies nausea vomiting diarrhea Denies fever chills Physical Exam Vital Signs: Vital Signs: Last Vital Signs Temp 97.6 F 09/28/21 07:45 Pulse 69 09/28/21 07:45 Resp 17 09/28/21 07:45 BP 153/84 H 09/28/21 07:45 Pulse Ox 94 09/28/21 07:45 O2 Del Method 09/28/21 07:45 BMI result Body Mass Index 25.0 Const: Other: awake no acute distress Resp: Other: clear to auscultation bilaterally no rales rhonchi or whee Cardio: Other: no S4; positive S1-S2; no S3 murmurs rubs gallops GI: Other: soft nontender nondistended normoactive bowel sounds Extrem: Other: no edema bilaterally Objective Data Active Medications Acetaminophen (Acetaminophen 325 Mg Tablet) 650 mg PO Q6H PRN PRN Reason: Pain, Mild (Pain Scale 1-3) Last Admin: 09/28/21 02:26 Dose: 650 mg Documented By: KESHIA Aspirin (Aspirin Enteric Coated 81 Mg Tablet.) 81 mg PO DAILY [facility] Last Admin: 09/28/21 10:07 Dose: 81 mg Documented By: JAGUAR Atorvastatin Calcium (Atorvastatin Calcium 80 Mg Tablet) 80 mg PO DAILY [facility] Last Admin: 09/28/21 10:08 Dose: 80 mg Documented By: JAGUAR Gabapentin (Gabapentin 100 Mg Capsule) 100 mg PO BEDTIME [facility] Last Admin: 09/27/21 21:27 Dose: 100 mg Documented By: EDISON Piperacillin Sod/Tazobactam (Sod 3.375 gm/ Sodium Chloride) 50 mls @ 100 mls/hr IV Q6H [facility] Last Admin: 09/28/21 10:08 Dose: 100 mls/hr Documented By: JAGUAR Isosorbide Mononitrate (Isosorbide Mononitrate 30 Mg Tab.Er.24h) 30 mg PO DAILY [facility]; Protocol Last Admin: 09/28/21 10:08 Dose: 30 mg Documented By: JAGUAR Levothyroxine Sodium (Levothyroxine Sodium 50 Mcg Tablet) 50 mcg PO DAILY@0600 [facility] Last Admin: 09/28/21 06:04 Dose: 50 mcg Documented By: KESHIA Lisinopril (Lisinopril 10 Mg Tablet) 10 mg PO DAILY [facility]; Protocol Last Admin: 09/28/21 10:07 Dose: 10 mg Documented By: JAGUAR Melatonin (Melatonin 3 Mg Tablet) 6 mg PO BEDTIME PRN PRN Reason: Insomnia Methylphenidate HCl (Methylphenidate Hcl 10 Mg Tablet) 10 mg PO DAILY [facility] Last Admin: 09/28/21 10:07 Dose: 10 mg Documented By: JAGUAR Senna (Sennosides 8.6 Mg Tablet) 17.2 mg PO BEDTIME PRN PRN Reason: Constipation Senna (Sennosides 8.6 Mg Tablet) 8.6 mg PO BEDTIME [facility] Last Admin: 09/27/21 21:27 Dose: 8.6 mg Documented By: EDISON Sertraline HCl (Sertraline Hcl 100 Mg Tablet) 100 mg PO DAILY [facility] Last Admin: 09/28/21 10:08 Dose: 100 mg Documented By: JAGUAR Sodium Chloride (0.9 % Sodium Chloride Flush 3 Ml Syringe) 3 ml IVFLUSH QSHIFT [facility] Last Admin: 09/28/21 10:07 Dose: Not Given Documented By: JAGUAR Non-Admin Reason: IV Running Tamsulosin HCl (Tamsulosin Hcl 0.4 Mg Capsule) 0.4 mg PO BEDTIME [facility] Last Admin: 09/27/21 21:27 Dose: 0.4 mg Documented By: EDISON Labs CBC & Chem 7: 09/28/21 06:25 09/28/21 06:25 Labs: Laboratory Results - last 24 hr 09/28/21 09/28/21 06:25 06:25 MCV 88.6 MCH 28.5 MCHC 32.2 RDW 14.1 Plt Count 169 MPV 10.5 Immature Gran % (Auto) 0.6 H Neut % (Auto) 57.0 Lymph % (Auto) 17.5 L [place] % (Auto) 14.3 H Eos % (Auto) 9.9 H Baso % (Auto) 0.7 Lymph # (Auto) 1.2 [place] # (Auto) 1.0 Eos # (Auto) 0.7 H Baso # (Auto) 0.1 Abs Immat Gran (auto) 0.04 H Absolute Neuts (auto) 3.9 Absolute Nucleated RBC 0.000 Nucleated RBC % (auto) 0.0 Anion Gap 11 L Estim Creat Clear Calc 36.8 Estimated GFR 42 Fasting Glucose 97 Calcium 8.1 L Total Bilirubin 0.5 AST 30 ALT 21 Alkaline Phosphatase 75 Total Protein 6.0 L Albumin 2.9 L Microbiology Microbiology Results: Microbiology 09/25/21 21:17 Blood Culture - Final Blood - Venous Enterobacter cloacae complex 09/25/21 19:12 Blood Culture - Final Blood - Venous Enterobacter cloacae complex 09/25/21 18:49 Urine Culture - Final Urine clean catch - Urine willis top No growth. Assessment and Plan (1) Gram-negative bacteremia: Status: Acute (2) Hematuria: Status: Acute (3) Dementia: Status: Acute Plan 81-year-old male presented with hematuria after for forcible removal of inflated Zaman catheter by accident; developed Gram-negative bacteremia during admission 1. Gram-negative bacteremia..enterobacter SS CTX - switch to CTX...ID consult - continue Zaman catheter - irrigate p.r.n. 2.Hypertension - acceptable control on current therapies - adjust as indicated 3.Dementia - no agitated behavior - continue current therapies will require ongoing hospitalization for IV antibiotics to treat Gram-negative bacteremia Quality Stroke Does the patient have a stroke diagnosis?: No VTE Prior VTE?: No VTE Risk Level:: Medical - moderate - high VTE Device Contraindication: N/A - Device Ordered VTE Drug Contraindication: Treatment Not Indicated
[2021-09-28] MEDS: cefTRIAXone sodium 1 GM in 0.9 % Sodium Chloride 50 ML IV (10:50)
[2021-09-28 11:45] VITALS: BP 145/67; PULSE 65; RESP 18; TEMP 36.4; O2SAT 93
[2021-09-28] MEDS: 0.9 % Sodium Chloride Flush 3 ML SYRINGE IVFLUSH ×2 (15:37→22:07)
[2021-09-28 16:00] VITALS: BP 133/62; PULSE 65; RESP 14; TEMP 36.6; O2SAT 94
[2021-09-28 19:41] VITALS: BP 158/74; PULSE 58; RESP 16; TEMP 37.1; O2SAT 95
[2021-09-28] MEDS: Tamsulosin HCL 0.4 MG CAPSULE PO (22:06)
[2021-09-28] MEDS: Gabapentin 100 MG CAPSULE PO (22:06)
[2021-09-28] MEDS: Sennosides 8.6 MG TABLET PO (22:07)
[2021-09-28 23:23] VITALS: BP 130/60; PULSE 58; RESP 16; TEMP 36.6; O2SAT 94
[2021-09-28] MEDS: Sennosides 8.6 MG TABLET 17.2 MG PO (23:59)
[2021-09-29] VITALS (8 sets, daily range): BP systolic 101–169; BP diastolic 51–89; PULSE 57–68; RESP 13–20; TEMP 36–37.3; O2SAT 93–95
[2021-09-29] MEDS: Levothyroxine Sodium 50 MCG TABLET PO (05:31)
[2021-09-29 07:02] LABS: MANUAL DIFF FLAG NO
[2021-09-29 07:17] LABS: Basophils Percent Auto 0.5 % (0-2); Eosinophils Absolute Auto 0.6 X10*3/uL (0.0-0.4); Eosinophils Percent Auto 8.4 % (0-4); Hematocrit 32.8 % (42.0-52.0); Hemoglobin 10.6 g/dl (14.0-18.0); Imm Gran Abs Auto 0.04 X10*3/uL (0.00-0.03); Imm Gran Pct Auto 0.5 % (0.0-0.4); Lymphocytes Absolute Auto 1.2 X10*3/uL (1.2-4.9); Lymphocytes Percent Auto 15.9 % (20-40); Mean Corpuscular HGB Conc 32.3 g/dl (31.0-36.0); Mean Corpuscular Hemoglobin 28.3 pg (27.0-33.0); Mean Corpuscular Volume 87.5 fL (80.0-98.0); Mean Platelet Volume 10.5 fL (9.4-12.4); Monocytes Absolute Auto 0.8 X10*3/uL (0.1-1.2); Monocytes Percent Auto 10.7 % (2-11); Neutrophils Absolute Auto 4.7 x10*3/uL (2.0-8.3); Platelet Count 176 X10*3/uL (160-400); Red Blood Count 3.75 X10*6/uL (4.60-5.80); White Blood Count 7.4 X10*3/uL (4.8-10.8)
[2021-09-29 07:31] LABS: Alanine Aminotransferase 22 U/L (0-40); Alkaline Phosphatase 83 U/L (39-117); Anion Gap 10 (12-20); Aspartate Amino Transferase 27 U/L (5-37); Bilirubin Total 0.4 mg/dL (0.0-1.0); Blood Urea Nitrogen 17 mg/dL (9-16); Calcium 8.3 mg/dL (8.4-10.2); Carbon Dioxide 23 mmol/L (22-29); Chloride 109 mmol/L (96-108); Creatinine Clr Calc Pharmacy 41.5; Estimated Glomerular Filt Rate 49; Glucose Fasting 111 mg/dL (60-99); Potassium 3.5 mmol/L (3.3-5.1); Sodium 138 mmol/L (135-145); Total Protein 6.3 g/dL (6.5-8.0)
[2021-09-29] MEDS: lisinopriL 10 MG TABLET PO (10:40)
[2021-09-29] MEDS: Aspirin Enteric Coated 81 MG TABLET.DR PO (10:41)
[2021-09-29] MEDS: Sertraline HCL 100 MG TABLET PO (10:41)
[2021-09-29] MEDS: Methylphenidate HCl 10 MG TABLET PO (10:41)
[2021-09-29] MEDS: 0.9 % Sodium Chloride Flush 3 ML SYRINGE IVFLUSH ×3 (10:41→20:45)
[2021-09-29] MEDS: cefTRIAXone sodium 1 GM in 0.9 % Sodium Chloride 50 ML IV (10:41)
[2021-09-29] MEDS: Isosorbide Mononitrate 30 MG TAB.ER.24H PO (10:41)
[2021-09-29] MEDS: Atorvastatin Calcium 80 MG TABLET PO (10:43)
--- NOTE | 2021-09-29 13:06 | MHC.CM.PN ---
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 PTS HOME IS CONDEMNED AND DOES NOT HAVE RUNNING WATER PER [facility] REPORT CM HAS ATTEMPTED TO CONTACT [facility] WORKER, MARISA SPENCE, SHE HAS NOT RETURNED ANY CALLS OF YET. PT WILL HAVE A COMPETENCY EVAL TO DETERMINE IF HE IS ABLE TO MAKE SAFE DISCHARGED PLANS PT DOES HAVE A HCP AND SHE IS AGREEABLE TO SNF PLACEMENT Original Note: CM CALLED PTS DAUGHTER, WILLIAN ([phone]) CM INFORMED HER [facility] WAS UNWILLING TO TAKE PT BACK AND HE IS READY TO DC TODAY AFTER SOME DISCUSSION, SHE REPORTS SHE WOULD LIKE TO ACCEPT THE BED OFFER FROM [facility] SHE ALSO INDICATED SHE DID NOT UNDERSTAND WHY THE PT WAS IN A SNF, HOWEVER SHE THEN ACKNOWLEDGED SHE HAD REPORTED TO THE PREVIOUS CM SHE FELT THE PT NEEDED LTC. SHE REPORTS SHE HAS DIFFICULTY DISCUSSING HER FATHER DUE TO PTSD, SHE DOES WANT TO BE INVOLVED BUT ONLY NEEDED. SHE REPORTS THERE IS NO ONE ELSE TO ACT HIS HCP AND AFTER DISCUSSION SHE ACKNOWLEDGES SHE WOULD PREFER TO KEEP IT IT IS. CM WILL DISCUSS CC WITH PT AND IF HE AGREES, HE WILL DC THERE TODAY [facility]IA [facility]
--- NOTE | 2021-09-29 14:12 | P.CNID_ITS ---
History of Present Illness Data of Consult Service Date: 09/29/21 Requesting physician: Jackson Shine Primary Care Provider: Unknown Physician HPI Reason for consult: bacteremia He presents with hematuria after forcible removal of Zaman catheter patient reports four to five days ago. He has no fever or chills at this time. He has no other complaitns. Organism is enterobacter. 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 Review of Systems Review of Systems: Yes all other systems are reviewed and are negative PMFSH Family History Family history: reviewed and not pertinent Social History Social History Household Members: None Housing: [facility] Other:: states lives at home Do you presently have visiting nurse or other home services: No Patient Tobacco Use Status: Never used Tobacco Meds Allergies Allergy/AdvReac Type Severity Reaction Status Date / Time [id number] Reductase Allergy Unknown MUSCLE Unverified 01/04/20 17:59 Inhibitor ACHES [FREYAGY-OIC-HHQ REDUCTASE INHIBITOR] clopidogrel Allergy Unknown Verified 09/26/21 04:32 codeine Allergy Unknown Verified 09/26/21 04:32 Active Medications: Current Medications Acetaminophen (Acetaminophen 325 Mg Tablet) 650 mg PO Q6H PRN PRN Reason: Pain, Mild (Pain Scale 1-3) Last Admin: 09/28/21 18:30 Dose: 650 mg Aspirin (Aspirin Enteric Coated 81 Mg Tablet.Dr) 81 mg PO DAILY [facility] Last Admin: 09/29/21 10:41 Dose: 81 mg Atorvastatin Calcium (Atorvastatin Calcium 80 Mg Tablet) 80 mg PO DAILY [facility] Last Admin: 09/29/21 10:43 Dose: 80 mg Gabapentin (Gabapentin 100 Mg Capsule) 100 mg PO BEDTIME [facility] Last Admin: 09/28/21 22:06 Dose: 100 mg Ceftriaxone Sodium 1 gm/ (Sodium Chloride) 50 mls @ 100 mls/hr IV Q24H [facility] Last Infusion: 09/29/21 11:19 Dose: Infused Isosorbide Mononitrate (Isosorbide Mononitrate 30 Mg Tab.Er.24h) 30 mg PO DAILY [facility]; Protocol Last Admin: 09/29/21 10:41 Dose: 30 mg Levothyroxine Sodium (Levothyroxine Sodium 50 Mcg Tablet) 50 mcg PO DAILY@0600 [facility] Last Admin: 09/29/21 05:31 Dose: 50 mcg Lisinopril (Lisinopril 10 Mg Tablet) 10 mg PO DAILY [facility]; Protocol Last Admin: 09/29/21 10:40 Dose: 10 mg Melatonin (Melatonin 3 Mg Tablet) 6 mg PO BEDTIME PRN PRN Reason: Insomnia Methylphenidate HCl (Methylphenidate Hcl 10 Mg Tablet) 10 mg PO DAILY [facility] Last Admin: 09/29/21 10:41 Dose: 10 mg Senna (Sennosides 8.6 Mg Tablet) 17.2 mg PO BEDTIME PRN PRN Reason: Constipation Last Admin: 09/28/21 23:59 Dose: 17.2 mg Senna (Sennosides 8.6 Mg Tablet) 8.6 mg PO BEDTIME [facility] Last Admin: 09/28/21 22:07 Dose: 8.6 mg Sertraline HCl (Sertraline Hcl 100 Mg Tablet) 100 mg PO DAILY [facility] Last Admin: 09/29/21 10:41 Dose: 100 mg Sodium Chloride (0.9 % Sodium Chloride Flush 3 Ml Syringe) [facility] Admin: 09/29/21 10:41 Dose: 3 ml Tamsulosin HCl (Tamsulosin Hcl 0.4 Mg Capsule) 0.4 mg PO BEDTIME [facility] Last Admin: 09/28/21 22:06 Dose: 0.4 mg Home Medications Medication Instructions Recorded Confirmed Last Taken Type aspirin 81 mg tablet,delayed 81 mg PO DAILY 09/26/21 09/26/21 Unknown History release atorvastatin 80 mg tablet 80 mg PO DAILY 09/26/21 09/26/21 Unknown History gabapentin 100 mg capsule 100 mg PO BEDTIME 09/26/21 09/26/21 Unknown History hydrochlorothiazide 25 mg tablet 25 mg PO DAILY 09/26/21 09/26/21 Unknown History isosorbide mononitrate 30 mg 30 mg PO DAILY 09/26/21 09/26/21 Unknown History tablet,extended release 24 hr levothyroxine 50 mcg tablet 50 mcg PO DAILY 09/26/21 09/26/21 Unknown History lisinopril 10 mg tablet 10 mg PO DAILY 09/26/21 09/26/21 Unknown History methylphenidate HCl 10 mg tablet 10 mg PO DAILY 09/26/21 09/26/21 Unknown History sennosides 8.6 mg tablet (senna) 8.6 mg PO BEDTIME 09/26/21 09/26/21 Unknown History sertraline 100 mg tablet 100 mg PO DAILY 09/26/21 09/26/21 Unknown History tamsulosin 0.4 mg capsule (Flomax) 0.4 mg PO BEDTIME 09/26/21 09/26/21 Unknown History Physical Exam Vital Signs: Vital Signs: Last Vital Signs Temp 98.8 F 09/29/21 11:49 Pulse 64 09/29/21 13:12 Resp 16 09/29/21 11:49 BP 169/89 H 09/29/21 13:12 Pulse Ox 94 09/29/21 13:12 O2 Del Method 09/29/21 11:49 BMI result Body Mass Index 25.0 Const: General: cooperative Eyes: General: appearance normal, both eyes and all related structures Resp: Effort & Inspection: normal respiratory effort Cardio: Rate: regular rate Rhythm: regular rhythm GI: Palpation (GI): Soft to palpation and nontender Skin: General skin exam: no rashes or lesions noted Extrem: General: Yes normal to inspection Results Labs CBC & Chem 7: 09/29/21 06:39 09/29/21 06:39 Labs: Short CBC 09/29/21 Range/Units 06:39 WBC 7.4 (4.8-10.8) X10*3/uL Hgb 10.6 L (14.0-18.0) g/dl Hct 32.8 L (42.0-52.0) % Plt Count 176 (160-400) X10*3/uL BMP 09/29/21 06:39 Sodium 138 Potassium 3.5 Chloride 109 H Carbon Dioxide 23 BUN 17 H Creatinine 1.39 Calcium 8.3 L Liver Function 09/29/21 Range/Units 06:39 Total Bilirubin 0.4 (0.0-1.0) mg/dL AST 27 (5-37) U/L ALT 22 (0-40) U/L Alkaline Phosphatase 83 (39-117) U/L Albumin 3.0 L (3.5-5.0) g/dL Microbiology Microbiology Results: Microbiology 09/25/21 21:17 Blood - Venous Blood Culture - Final Enterobacter cloacae complex 09/25/21 19:12 Blood - Venous Blood Culture - Final Enterobacter cloacae complex 09/25/21 18:49 Urine clean catch - Urine willis top Urine Culture - Final No growth. Assessment and Plan (1) Gram-negative bacteremia: Status: Acute He has enterobacter He has no antibiotics allergies (2) Hematuria: Status: Acute Plan Levaquin or Ceftin total po ten to fourteen days.
[2021-09-29] MEDS: Magnesium Hydrox/Alum Hydrox 30 ML ORAL.SUSP PO (20:45)
[2021-09-29] MEDS: Acetaminophen 325 MG TABLET 650 MG PO (20:45)
[2021-09-29] MEDS: Melatonin 3 MG TABLET 6 MG PO (20:45)
[2021-09-29] MEDS: Sennosides 8.6 MG TABLET PO (20:45)
[2021-09-29] MEDS: Tamsulosin HCL 0.4 MG CAPSULE PO (20:45)
[2021-09-29] MEDS: Gabapentin 100 MG CAPSULE PO (20:45)
[2021-09-30 03:41] VITALS: BP 142/65; PULSE 61; RESP 14; TEMP 36.3; O2SAT 95
[2021-09-30] MEDS: Levothyroxine Sodium 50 MCG TABLET PO (05:41)
[2021-09-30 07:45] VITALS: BP 133/98; PULSE 67; RESP 16; TEMP 37; O2SAT 94
[2021-09-30] MEDS: Isosorbide Mononitrate 30 MG TAB.ER.24H PO (08:12)
[2021-09-30] MEDS: Methylphenidate HCl 10 MG TABLET PO (08:12)
[2021-09-30] MEDS: Atorvastatin Calcium 80 MG TABLET PO (08:12)
[2021-09-30] MEDS: lisinopriL 10 MG TABLET PO (08:12)
[2021-09-30] MEDS: Aspirin Enteric Coated 81 MG TABLET.DR PO (08:12)
[2021-09-30] MEDS: Sertraline HCL 100 MG TABLET PO (08:12)
[2021-09-30] MEDS: 0.9 % Sodium Chloride Flush 3 ML SYRINGE IVFLUSH ×3 (08:15→20:18)
[2021-09-30 08:47] VITALS: BP 133/98; PULSE 67; O2SAT 94
[2021-09-30 10:21] LABS: Anion Gap 11 (12-20); Blood Urea Nitrogen 16 mg/dL (9-16); Calcium 8.4 mg/dL (8.4-10.2); Carbon Dioxide 24 mmol/L (22-29); Chloride 108 mmol/L (96-108); Creatinine Clr Calc Pharmacy 40.9; Estimated Glomerular Filt Rate 48; Glucose Random 166 mg/dL (60-115); Potassium 3.4 mmol/L (3.3-5.1); Sodium 140 mmol/L (135-145)
[2021-09-30] MEDS: cefTRIAXone sodium 1 GM in 0.9 % Sodium Chloride 50 ML IV (11:36)
--- NOTE | 2021-09-30 11:46 | MHC.CM.PN ---
PATIENT IS REFUSING TO DC TO ANY REHAB FACILITIES. MESSAGE LEFT FOR MARISA BEBE ([phone]) [phone], EXPLAINING THAT PATIENT HAS BEEN DEEMED COMPETENT AND IS REFUSING ANY REHAB PLACEMENT. PATIENT AWARE THAT CASE MANAGEMENT IS AWAITING A RETURN PHONE CALL.
[2021-09-30 11:54] VITALS: BP 133/69; PULSE 61; RESP 18; TEMP 36.7; O2SAT 97
--- NOTE | 2021-09-30 11:57 | P.CNPS_ITS ---
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 Was found to have KUMAR, admitted for further assessment / treatment. ?Ps somewhat unkempt, otherwise appropriate. Wearing hospital garb. ychiatry was asked to meet with patient regarding decision making capacity. I was notified that he was attempting to go home, his home was condemned. Patient was resting in chair with feet elevated at side of bed. He was alert and oriented x4. He was able to state where he was, and states the full date, including day month year. He also stated that Rose is president. When asked if he had any concerns, he states that he wished to go home. Patient reports he lives alone in his own home. He states that his home is in state of disrepair, but that he has been working with somebody from [employer] regarding getting some repairs done. When asked how he gets his grocery shopping completed, he states that he drives to the grocery store himself. When asked if he has a current license. He replied that he does. When asked if he had any assistance in the home, he stated he does not currently, but that again the [employer] worker has been assisting him to line up services. 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 A quick entered at search revealed numerous published books by this patient. When asked if he has a history of depression, he states that he has had a history of depression, and that he takes sertraline for this with positive effect. Past Psychiatric History: Takes sertraline 100mg daily, prescribed by pcp. Medical Evaluation Reviewed: Yes Personal & Social History: has a daughter that is HCP Lives alone Review of Systems Review of Systems Full review of systems was completed and was negative with the exception of pertinent positives noted in history of the presenting illness (HPI) Constitutional: Reports no additional constitutional complaints Diagnostics Vital Signs (24Hr): Vital Signs - 24 hr 09/29/21 13:12 09/29/21 16:11 09/29/21 19:40 Temperature 97.3 F 97.9 F Pulse Rate 64 68 64 Respiratory Rate 20 20 Blood Pressure 169/89 H 101/51 L 157/78 H Pulse Oximetry 94 95 95 Oxygen Delivery Method Room Air Room Air 09/29/21 23:59 09/30/21 03:41 09/30/21 07:45 Temperature 99.1 F 97.4 F 98.6 F Pulse Rate 57 61 67 Respiratory Rate 13 14 16 Blood Pressure 131/79 142/65 H 133/98 H Pulse Oximetry 95 95 94 Oxygen Delivery Method Room Air Room Air Room Air 09/30/21 08:47 09/30/21 11:54 Temperature 98.0 F Pulse Rate 67 61 Respiratory Rate 18 Blood Pressure 133/98 H 133/69 Pulse Oximetry 94 97 Oxygen Delivery Method Room Air BMI result Body Mass Index 25.0 Labs Results: 09/29/21 06:39 09/30/21 09:46 Labs: Laboratory Results - last 48 hr 09/29/21 09/29/21 09/30/21 06:39 06:39 09:46 WBC 7.4 RBC 3.75 L Hgb 10.6 L Hct 32.8 L MCV 87.5 MCH 28.3 MCHC 32.3 RDW 14.0 Plt Count 176 MPV 10.5 Immature Gran % (Auto) 0.5 H Neut % (Auto) 64.0 Lymph % (Auto) 15.9 L [place] % (Auto) 10.7 Eos % (Auto) 8.4 H Baso % (Auto) 0.5 Lymph # (Auto) 1.2 [place] # (Auto) 0.8 Eos # (Auto) 0.6 H Baso # (Auto) 0.0 Abs Immat Gran (auto) 0.04 H Absolute Neuts (auto) 4.7 Absolute Nucleated RBC 0.000 Nucleated RBC % (auto) 0.0 Sodium 138 140 Potassium 3.5 3.4 Chloride 109 H 108 Carbon Dioxide 23 24 Anion Gap 10 L 11 L BUN 17 H 16 Creatinine 1.39 1.41 H Estim Creat Clear Calc 41.5 40.9 Estimated GFR 49 48 Random Glucose 166 H Fasting Glucose 111 H Calcium 8.3 L 8.4 Total Bilirubin 0.4 AST 27 ALT 22 Alkaline Phosphatase 83 Total Protein 6.3 L Albumin 3.0 L Imaging Radiology Impressions: ITS Impressions Chest X-Ray 09/26/21 04:25 IMPRESSION: Limited exam. Right suprahilar streaky opacity could represent infiltrate or summation shadow. Mental Status Exam Mental Status Exam Narrative: Well-developed, well-nourished male, in NAD. Somewhat disheveled, dressed in hospital garb. Appears stated age. Eye contact within normal limits. Fully alert and oriented x4. Manner and behavior were calm, cooperative. Speech was fluent, unimpaired. Mood stable, affect congruent with mood. Thought process and associations were linear, goal directed. Thought content was normal, future oriented. No delusions noted. No hallucinations reported, no perceptual disturbances observed. Denies any thought of harm to self others. Appears to be reliable historian. Judgment and insight appear fair but adequate. Am bulation not observed. No cogwheeling or rigidity noted. Patient Appearance: Disheveled Patient Orientation: Person, Place, Time and Situation Medications Medications Current Medications Acetaminophen (Acetaminophen 325 Mg Tablet) 650 mg PO Q6H PRN PRN Reason: Pain, Mild (Pain Scale 1-3) Last Admin: 09/29/21 20:45 Dose: 650 mg Al Hydroxide/Mg Hydroxide (Magnesium Hydrox/Alum Hydrox 30 Ml Oral.Susp) 30 ml PO Q4H PRN PRN Reason: Heartburn Last Admin: 09/29/21 20:45 Dose: 30 ml Aspirin (Aspirin Enteric Coated 81 Mg Tablet.) 81 mg PO DAILY [facility] Last Admin: 09/30/21 08:12 Dose: 81 mg Atorvastatin Calcium (Atorvastatin Calcium 80 Mg Tablet) 80 mg PO DAILY [facility] Last Admin: 09/30/21 08:12 Dose: 80 mg Gabapentin (Gabapentin 100 Mg Capsule) 100 mg PO BEDTIME [facility] Last Admin: 09/29/21 20:45 Dose: 100 mg Ceftriaxone Sodium 1 gm/ (Sodium Chloride) 50 mls @ 100 mls/hr IV Q24H [facility] Last Admin: 09/30/21 11:36 Dose: 100 mls/hr Isosorbide Mononitrate (Isosorbide Mononitrate 30 Mg Tab.Er.24h) 30 mg PO DAILY [facility]; Protocol Last Admin: 09/30/21 08:12 Dose: 30 mg Levothyroxine Sodium (Levothyroxine Sodium 50 Mcg Tablet) 50 mcg PO DAILY@0600 [facility] Last Admin: 09/30/21 05:41 Dose: 50 mcg Lisinopril (Lisinopril 10 Mg Tablet) 10 mg PO DAILY [facility]; Protocol Last Admin: 09/30/21 08:12 Dose: 10 mg Melatonin (Melatonin 3 Mg Tablet) 6 mg PO BEDTIME PRN PRN Reason: Insomnia Last Admin: 09/29/21 20:45 Dose: 6 mg Methylphenidate HCl (Methylphenidate Hcl 10 Mg Tablet) 10 mg PO DAILY [facility] Last Admin: 09/30/21 08:12 Dose: 10 mg Senna (Sennosides 8.6 Mg Tablet) 17.2 mg PO BEDTIME PRN PRN Reason: Constipation Last Admin: 09/28/21 23:59 Dose: 17.2 mg Senna (Sennosides 8.6 Mg Tablet) 8.6 mg PO BEDTIME [facility] Last Admin: 09/29/21 20:45 Dose: 8.6 mg Sertraline HCl (Sertraline Hcl 100 Mg Tablet) 100 mg PO DAILY [facility] Last Admin: 09/30/21 08:12 Dose: 100 mg Sodium Chloride (0.9 % Sodium Chloride Flush 3 Ml Syringe) 3 ml IVFLUSH QSHIFT [facility] Last Admin: 09/30/21 08:15 Dose: 3 ml Tamsulosin HCl (Tamsulosin Hcl 0.4 Mg Capsule) 0.4 mg PO BEDTIME [facility] Last Admin: 09/29/21 20:45 Dose: 0.4 mg Allergies Allergies Allergy/AdvReac Type Severity Reaction Status Date / Time [id number] Reductase Allergy Unknown MUSCLE Unverified 01/04/20 17:59 Inhibitor ACHES [[id number] REDUCTASE INHIBITOR] clopidogrel Allergy Unknown Verified 09/26/21 04:32 codeine Allergy Unknown Verified 09/26/21 04:32 Assessment & Plan Assessment & Plan (1) Encounter for assessment of decision-making capacity: Status: Acute Code(s): Z01.89 - Encounter for other specified special examinations Assessment and Plan: I met with patient to assess capacity for decision making. He was able to explain to me currently why he is in the hospital. He reported that originally he had gone to [facility] after a fall. He had spent several days at [facility] and then was sent to a correction for physical therapy. He was able to tell me that he then came to [place]. He stated that he disliked the short-term rehab facility while he was there, and has no intention to return. He also was able to tell me the treatments he has been receiving. He was able to tell me that he knows it is recommended that he go to short- term rehab setting for physical therapy. He was able to tell me in detail exactly what is involved in a facility for physical therapy, including the actual exercises, and the amount of time provided daily. He stated that he has no desire whatsoever to return to a facility, and wants to go home. He stated that he is willing to work with his elder Services worker in obtaining home care services. He states he is also willing to go to outpatient physical therapy, as he has a site located near his home. When asked in detail about the condition of his home, he stated that he owns at 19:[address] bungalow, and that it is in a state of disrepair. He states that he has been working with his case operator from [employer] to obtain the necessary repairs so that he can safely remain in his home. Plan Patient was alert and oriented, articulate. He was able to convey proposed treatment, as well as consequences of either excepting or refusing to go to a short-term rehab facility. His decision does not appear to be affected in any way by depression or psychosis, or impaired cognition. At this time, patient appears to have capacity for decision making. I have shared this information with provider , as well as case operator on unit. Thank you for this consultation. I spent minutes with the patient and/or on the patient floor today, greater than?50% of which was spent counseling/coordinating care. Patient educated on: diagnosis, medication risk/benefits and therapeutic strategies Informed Consent: understands
--- NOTE | 2021-09-30 13:11 | MHC.CM.PN ---
THIS PRECISION FARMING SPECIALIST SPOKE WITH PATIENT'S ELDER GEOPHYSICAL ENGINEER, MARISA CUNNINGHAM IS AWARE THAT PATIENT WILL DC HOME. VNA SERVICES ARE NEEDED FOR ORO CARE MARISA REPORTS THAT PATIENT REFUSES TO ANSWER THE DOOR AND WILL NOT ANSWER THE PHONE. MARISA STATES THAT PATIENT HAS BEEN LIVING IN HIS HOME WITH NO RUNNING WATER AND HAS DONE SO FOR QUITE SOME TIME NOW. HE DOES HAVE A CAR AND HE DRIVES MARISA STATES THAT HE HIDES HIS HOUSE KEYS SOMEWHERE THAT HE CAN GET TOO EASILY ENOUGH. [facility] VNA REFERRAL PLACED. CASE MANAGEMENT AWAITING RESPONSE. ONCE DC, A NEW PROTECTIVE SERVICES REPORT WILL BE FILED, [facility] CURRENTLY HAS PATIENT CLOSED OUT DUE TO NONCOMPLIANCE ONCE THIS IS COMPLETE, CASE MANAGEMENT TO NOTIFY MARISA SPENCE ([phone]) SHE WILL DO HER BEST TO FOLLOW THE PATIENT
--- NOTE | 2021-09-30 13:32 | W.MHC.F2F ---
Service Date Service Date: 09/30/21 Encounter Date of encounter: 09/30/21 Reasons for Services Signs and symptoms assessed: Zaman care Reason for detention: medication management, medication treatment, teach disease management and other Reason for physical therapy: home safety and mobility, therapeutic exercises, gait/transfer training, assess need for DME, ADL training and energy conservation MD Overseeing Care: Eddi Parson Homebound: Leaving the home is medically contraindicated at this time without the asist of a device and/or another person due th the listed conditions above and below. Reason homebound: immunosuppression / infection risk and weakness related to hospital stay Certification: Based on the above findings, I certify that this patient is confined to the home and needs intermittent detention care, physical therapy and/or speech therapy, or continues to need occupational therapy. The patient is under my care, and I have initiated the establishment of the plan of care. The patient will be followed by a physician who will periodically review the plan of care.
[2021-09-30 15:21] VITALS: BP 141/65; PULSE 58; RESP 18; TEMP 36.9; O2SAT 98
--- NOTE | 2021-09-30 15:36 | MHC.CM.NN ---
Addendum entered by Suri Forrest 09/30/21 15:58: PLAN IS FOR VOIDING TRIAL IF ABLE TO VOID, PATIENT WILL DC HOME WITHOUT ORO SURI SPENCE ([phone]) MADE AWARE THAT PATIENT WILL NOT DC HOME TONIGHT Original Note: [facility] IS UNABLE TO OFFER SERVICES, DESPITE ATTEMPTING TO BE ABLE TO ADMIT PROVIDER MADE AWARE THAT NO VNA CAN ACCEPT RN AWARE. CASE MANAGEMENT TO UPDATE THIS NOTE WITH PLAN
--- NOTE | 2021-09-30 16:56 | HO.PM.IMPN ---
Subjective Subjective Date of Service: 09/30/21 Interval History: Refuses STR Has capacity for own decisions per Psychiatry Aware home has no running water but plans to move in with friend in [place] Wishes to trial voiding Review of Systems Review of Systems: Yes all other systems are reviewed and are negative Physical Exam Vital Signs: Vital Signs: Last Vital Signs Temp 98.4 F 09/30/21 15:21 Pulse 58 09/30/21 15:21 Resp 18 09/30/21 15:21 BP 141/65 H 09/30/21 15:21 Pulse Ox 98 09/30/21 15:21 O2 Del Method 09/30/21 15:21 BMI result Body Mass Index 25.0 Gen: in no acute distress HEENT: sclera anicteric, moist mucus membranes Neck: supple Lungs: clear to auscultation bilaterally Heart: regular rate and rhythm, no murmurs Abd: soft, non-tender, non-distended : Azman with clear urine Ext: no edema Skin: warm/well-perfused Neuro: alert and oriented x3, no focal findings Psych: appropriate affect Objective Data Active Medications Acetaminophen (Acetaminophen 325 Mg Tablet) 650 mg PO Q6H PRN PRN Reason: Pain, Mild (Pain Scale 1-3) Last Admin: 09/29/21 20:45 Dose: 650 mg Documented By: DARRELL Al Hydroxide/Mg Hydroxide (Magnesium Hydrox/Alum Hydrox 30 Ml Oral.Susp) 30 ml PO Q4H PRN PRN Reason: Heartburn Last Admin: 09/29/21 20:45 Dose: 30 ml Documented By: DARRELL Aspirin (Aspirin Enteric Coated 81 Mg Tablet.) 81 mg PO DAILY [facility] Last Admin: 09/30/21 08:12 Dose: 81 mg Documented By: NORMA Atorvastatin Calcium (Atorvastatin Calcium 80 Mg Tablet) 80 mg PO DAILY [facility] Last Admin: 09/30/21 08:12 Dose: 80 mg Documented By: NORMA Gabapentin (Gabapentin 100 Mg Capsule) 100 mg PO BEDTIME [facility] Last Admin: 09/29/21 20:45 Dose: 100 mg Documented By: DARRELL Ceftriaxone Sodium 1 gm/ (Sodium Chloride) 50 mls @ 100 mls/hr IV Q24H [facility] Last Infusion: 09/30/21 12:08 Dose: 0 mls/hr Documented By: NORMA Isosorbide Mononitrate (Isosorbide Mononitrate 30 Mg Tab.Er.24h) 30 mg PO DAILY [facility]; Protocol Last Admin: 09/30/21 08:12 Dose: 30 mg Documented By: NORMA Levothyroxine Sodium (Levothyroxine Sodium 50 Mcg Tablet) 50 mcg PO DAILY@0600 [facility] Last Admin: 09/30/21 05:41 Dose: 50 mcg Documented By: DARRELL Lisinopril (Lisinopril 10 Mg Tablet) 10 mg PO DAILY [facility]; Protocol Last Admin: 09/30/21 08:12 Dose: 10 mg Documented By: NORMA Melatonin (Melatonin 3 Mg Tablet) 6 mg PO BEDTIME PRN PRN Reason: Insomnia Last Admin: 09/29/21 20:45 Dose: 6 mg Documented By: DARRELL Methylphenidate HCl (Methylphenidate Hcl 10 Mg Tablet) 10 mg PO DAILY [facility] Last Admin: 09/30/21 08:12 Dose: 10 mg Documented By: NORMA Senna (Sennosides 8.6 Mg Tablet) 17.2 mg PO BEDTIME PRN PRN Reason: Constipation Last Admin: 09/28/21 23:59 Dose: 17.2 mg Documented By: DARRELL Senna (Sennosides 8.6 Mg Tablet) 8.6 mg PO BEDTIME [facility] Last Admin: 09/29/21 20:45 Dose: 8.6 mg Documented By: DARRELL Sertraline HCl (Sertraline Hcl 100 Mg Tablet) 100 mg PO DAILY [facility] Last Admin: 09/30/21 08:12 Dose: 100 mg Documented By: NORMA Sodium Chloride (0.9 % Sodium Chloride Flush 3 Ml Syringe) 3 ml IVFLUSH QSHIFT [facility] Last Admin: 09/30/21 08:15 Dose: 3 ml Documented By: NORMA Tamsulosin HCl (Tamsulosin Hcl 0.4 Mg Capsule) 0.4 mg PO BEDTIME [facility] Last Admin: 09/29/21 20:45 Dose: 0.4 mg Documented By: DARRELL Labs CBC & Chem 7: 09/29/21 06:39 09/30/21 09:46 Labs: Laboratory Results - last 24 hr 09/30/21 09:46 Anion Gap 11 L Estim Creat Clear Calc 40.9 Estimated GFR 48 Random Glucose 166 H Calcium 8.4 Assessment and Plan (1) Gram-negative bacteremia: Status: Acute (2) Hematuria: Status: Acute (3) Dementia: Status: Acute Plan hospital d#5 81-year-old male presented with hematuria after for forcible removal of inflated Zaman catheter by accident; found to have Gram-negative bacteremia during admission # Enterobacter cloacae bacteremia - on ceftriaxone, plan total 14 days to complete with cefuroxime # urinary retention - trial of voiding - continue tamsulosin # HTN - continue Imdur + lisinopril # dementia - continue methylphenidate + sertraline # VTE ppx - SCDs # dispo - CM involved heavily, in communication with [facility] In my clinical judgment, the patient requires continued hospitalization for the following reasons: IV ABX, safe dispo Quality Stroke Does the patient have a stroke diagnosis?: No VTE Prior VTE?: No VTE Risk Level:: Medical - moderate - high VTE Device Contraindication: N/A - Device Ordered VTE Drug Contraindication: Treatment Not Indicated
[2021-09-30 19:56] VITALS: BP 174/87; PULSE 60; RESP 18; TEMP 37; O2SAT 96
[2021-09-30] MEDS: Tamsulosin HCL 0.4 MG CAPSULE PO (20:17)
[2021-09-30] MEDS: Acetaminophen 325 MG TABLET 650 MG PO (20:17)
[2021-09-30] MEDS: Gabapentin 100 MG CAPSULE PO (20:17)
[2021-09-30] MEDS: Sennosides 8.6 MG TABLET PO (20:17)
[2021-09-30] MEDS: Melatonin 3 MG TABLET 6 MG PO (20:18)
[2021-10-01] VITALS: BP 160/88; PULSE 59; RESP 17; TEMP 36.4; O2SAT 94
[2021-10-01 04:00] VITALS: BP 156/82; PULSE 60; RESP 17; TEMP 36.4; O2SAT 95
[2021-10-01] MEDS: Levothyroxine Sodium 50 MCG TABLET PO (05:43)
--- NOTE | 2021-10-01 06:25 | PC.NURSE ---
Pt voided 3x throughout the night, PVR = 674 ml , instructed and advised the need for a straight cath or faith cath, pt refused both of them, Dr. Armando was notified.
--- NOTE | 2021-10-01 06:25 | PM.EVENT ---
Event Note Date of Service: 10/01/21 Event Note: pt retaining urine. Refusing placement of faith, not even straight cath. pt in no acute distress and denies discmfort
[2021-10-01 07:47] VITALS: BP 165/82; PULSE 65; RESP 18; TEMP 37.4; O2SAT 95
[2021-10-01] MEDS: Sertraline HCL 100 MG TABLET PO (08:05)
[2021-10-01] MEDS: Atorvastatin Calcium 80 MG TABLET PO (08:05)
[2021-10-01] MEDS: Methylphenidate HCl 10 MG TABLET PO (08:05)
[2021-10-01] MEDS: Aspirin Enteric Coated 81 MG TABLET.DR PO (08:05)
[2021-10-01] MEDS: lisinopriL 10 MG TABLET PO (08:06)
[2021-10-01] MEDS: 0.9 % Sodium Chloride Flush 3 ML SYRINGE IVFLUSH (08:06)
[2021-10-01] MEDS: Isosorbide Mononitrate 30 MG TAB.ER.24H PO (08:06)
--- NOTE | 2021-10-01 09:10 | PC.NURSE ---
pt unable to void this am , this rn bladder scanned pt for over 900mls of urine , after long discussion with pt , pt agreeing to faith placement . #16 faith coude cath placed without difficulty . 800mls of yellow urine in faith bag.
[2021-10-01 09:46] LABS: Anion Gap 13 (12-20); Blood Urea Nitrogen 15 mg/dL (9-16); Calcium 8.6 mg/dL (8.4-10.2); Carbon Dioxide 24 mmol/L (22-29); Chloride 109 mmol/L (96-108); Creatinine Clr Calc Pharmacy 44.4; Estimated Glomerular Filt Rate 53; Glucose Random 136 mg/dL (60-115); Potassium 3.7 mmol/L (3.3-5.1); Sodium 142 mmol/L (135-145)
[2021-10-01 10:24] VITALS: BP 165/82; PULSE 65; O2SAT 95
--- NOTE | 2021-10-01 11:35 | MHC.CM.PN ---
Addendum entered by Suri Forrest 10/01/21 12:29: [facility] FAX NUMBER [phone] Addendum entered by Suri Forrest 10/01/21 12:03: [facility] HOTLINE CONTACTED AND REPORT FILED ([phone]) THIS FURNITURE REPRODUCER SPOKE WITH [facility]. COMPLETED FORM TO ALSO BE FAXED TO [facility] Original Note: PATIENT STILL REFUSES STR HE IS AWARE THAT VNA IS NOT AN OPTION SECONDARY TO UNSAFE LIVING CONDITIONS. HE DOES NOT WANT VNA SERVICES CONVERSATION WAS HAD WITH [facility]. AGENCY IS UNABLE TO OFFER SERVICES. [facility] [place] [place]. CASE DISCUSSED IN MULTI DISCIPLINARY ROUNDS AND PATIENT IS ABLE TO MAKE HIS OWN DECISIONS SURI SPENCE TO BE UPDATED WITH DC PLAN SO THAT [employer] CAN RESUME
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
--- NOTE | 2021-10-01 13:04 | PC.NURSE ---
pt given discharge instructions , pt verbalized understanding of discharge instructions . pt handed a prescription for antibiotics and pt states he understands instructions on antibiotic . pt begins to yell at staff regarding discharge and clothing . this rn looked at belonging list and no belongings noted on paperwork . the belonging list specifically states No belongings . pt insisted he had 2 pairs of pants shoes and shirt . pt dressed in kody pants and shirt . pt has no transportation home and pt to take shuttle home. pt faith bag switched over to leg bag .
== END 2021-10-01 13:24 | DRG 699 ==
LOC: HO.ED 09-26 02:01 → HO.EDOVER 09-26 03:19 → HO.S3 09-26 18:36
PROVIDERS: Emergency Medicine; Hospitalist; Admitting Provider Hospitalist; Emergency Provider Emergency Medicine; Visit Provider Family Medicine
DX: T83.83XA Hemorrhage due to genitourinary prosthetic devices, implants and grafts, initial encounter (principal); R78.81 Bacteremia; E87.2 Acidosis; N13.8 Other obstructive and reflux uropathy; F05 Delirium due to known physiological condition; N17.9 Acute kidney failure, unspecified; E86.0 Dehydration; F03.90 Unspecified dementia, unspecified severity, without behavioral disturbance, psychotic disturbance, mood disturbance, and anxiety; D72.829 Elevated white blood cell count, unspecified; I25.10 Atherosclerotic heart disease of native coronary artery without angina pectoris; I12.9 Hypertensive chronic kidney disease with stage 1 through stage 4 chronic kidney disease, or unspecified chronic kidney disease; F32.A Depression, unspecified; I73.9 Peripheral vascular disease, unspecified; N40.1 Benign prostatic hyperplasia with lower urinary tract symptoms; R33.8 Other retention of urine; R31.0 Gross hematuria; N18.9 Chronic kidney disease, unspecified; Z95.5 Presence of coronary angioplasty implant and graft; Z20.822 Contact with and (suspected) exposure to COVID-19; Z88.5 Allergy status to narcotic agent; Z88.8 Allergy status to other drugs, medicaments and biological substances; Z79.82 Long term (current) use of aspirin; Z79.899 Other long term (current) drug therapy
CPT/HCPCS: 36415; 71045; 80048; 80053; 81001; 83605; 85025; 85610; 85730; 87040; 87077; 87086; 87186; 87205; 87635; 96360; 96361; 97116; 97162; 99285; J0696; J2543

== ENCOUNTER 2022-03-18 14:07 | Inpatient (IN) | payer MEDICARE, SELFPAY ==
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
--- NOTE | ~2022-03-18 | CT_ITS ---
EXAMINATION: CT ABDOMEN AND PELVIS WITHOUT CONTRAST CLINICAL INFORMATION: Urinary tract infection and acute kidney insufficiency. Rule out obstructive uropathy COMPARISON: Previous CT of the abdomen and pelvis March 2016 TECHNIQUE: Multidetector volumetric imaging was performed from the superior aspect of the liver through the pubic symphysis. Sagittal and coronal reformatted images were obtained on the technologist's workstation. This CT examination was performed using dose optimization techniques as appropriate, variously including the following: *Automated exposure control *Adjustment of mA and/or kV according to patient size (this includes techniques or standardized protocols for targeted exams where dose is matched to indication/reason for exam; i.e. extremities or head) *Use of iterative reconstruction technique DLP: 610 mGy-cm FINDINGS: LUNG BASES: There are increased interstitial markings at the lung bases questionable for interstitial disease versus dependent atelectasis. There is severe coronary artery calcification. There is aortic valve calcification. LIVER, GALLBLADDER, AND BILIARY TREE: The liver is normal in size, shape, and attenuation. No focal hepatic lesion or biliary ductal dilatation is present. The gallbladder is unremarkable with no evidence of radiopaque gallstones, gallbladder wall thickening, or obvious pericholecystic inflammatory changes. PANCREAS: Fatty infiltration of the pancreas. SPLEEN: Unremarkable. ADRENAL GLANDS: Unremarkable. KIDNEYS AND URETERS: Atrophic right kidney. Small 1 cm cyst in the upper pole the right kidney and small 2 mm stone versus vascular calcification. Left kidney is normal in size. 4 cm cyst in the upper pole of the left kidney. Small nonobstructing left renal stones. No hydronephrosis, ureteral dilatation or ureteral stone. BLADDER: There is a Zaman catheter in the bladder. The bladder is empty and difficult to evaluate. There is question of a bladder wall thickening and mild stranding of the perivesicular fat. The prostate gland is enlarged. GASTROINTESTINAL TRACT: There is evidence of severe constipation. There is mild wall thickening of the distal sigmoid colon and stranding of the surrounding fat questionable for stercoral colitis. Redundant cecum. And sigmoid colon. Appendix not seen. No inflammatory changes in the right lower quadrant. ABDOMINAL WALL: Right inguinal hernia. LYMPH NODES: Normal. VASCULAR: Severe atherosclerotic disease. PELVIC VISCERA: The prostate gland is enlarged and protrudes into the base of the bladder. The prostate gland measures 5 x 6 cm in AP and transverse dimension. OSSEOUS STRUCTURES: Severe degenerative changes of the spine. Degenerative changes at the hip joints. CT/CT abdomen pelvis wo IV con IMPRESSION: Atrophic right kidney. Small bilateral renal stones. Bilateral renal cysts. No hydronephrosis ureteral dilatation or ureteral stone. Zaman catheter in the bladder. Bladder is empty and difficult to evaluate. There is suggestion of bladder wall thickening and stranding of the perivesicular fat. Enlarged prostate gland. Severe constipation. Wall thickening of the distal colon questionable for mild stercoral colitis. Clinical correlation recommended. Severe atherosclerotic disease. Fleischner guidelines were followed.
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
[2022-03-18 14:36] VITALS: BP 240/120; PULSE 75; O2SAT 98; BMI 23.6
[2022-03-18 14:39] VITALS: BP 237/97; PULSE 78; RESP 16; TEMP 36.7; O2SAT 96
[2022-03-18] MEDS: Diphth,Pertus(ACell),Tet Adult 0.5 ML SYRINGE IM (15:09)
[2022-03-18 15:23] VITALS: BP 228/97; PULSE 74; RESP 16; TEMP 36.3; O2SAT 97
[2022-03-18 15:29] LABS: COVID-19 Test Negative (Negative); IDNOW Serial# 16C4AD1C
[2022-03-18 15:39] LABS: MANUAL DIFF FLAG NO
[2022-03-18 15:42] LABS: Basophils Absolute Auto 0.1 X10*3/uL (0.0-0.2); Basophils Percent Auto 0.6 % (0-2); Eosinophils Absolute Auto 0.2 X10*3/uL (0.0-0.4); Eosinophils Percent Auto 1.6 % (0-4); Hematocrit 43.3 % (42.0-52.0); Hemoglobin 13.6 g/dl (14.0-18.0); Imm Gran Abs Auto 0.03 X10*3/uL (0.00-0.03); Imm Gran Pct Auto 0.3 % (0.0-0.4); Lymphocytes Absolute Auto 1.1 X10*3/uL (1.2-4.9); Lymphocytes Percent Auto 11.4 % (20-40); Mean Corpuscular HGB Conc 31.4 g/dl (31.0-36.0); Mean Corpuscular Hemoglobin 26.6 pg (27.0-33.0); Mean Corpuscular Volume 84.7 fL (80.0-98.0); Mean Platelet Volume 10.2 fL (9.4-12.4); Monocytes Absolute Auto 0.8 X10*3/uL (0.1-1.2); Monocytes Percent Auto 8.4 % (2-11); Neutrophils Absolute Auto 7.3 x10*3/uL (2.0-8.3); Neutrophils Percent Auto 77.7 % (45-73); Platelet Count 233 X10*3/uL (160-400); Red Blood Count 5.11 X10*6/uL (4.60-5.80); Red Cell Distribution Width 16.1 % (11.0-16.0); White Blood Count 9.4 X10*3/uL (4.8-10.8)
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
[2022-03-18 16:12] LABS: Alanine Aminotransferase 30 U/L (0-40); Albumin Level 4.1 g/dL (3.5-5.0); Alkaline Phosphatase 98 U/L (39-117); Anion Gap 14 (12-20); Aspartate Amino Transferase 56 U/L (5-37); Bilirubin Direct < 0.2 mg/dL (0.0-0.5); Bilirubin Total 0.3 mg/dL (0.0-1.0); Blood Urea Nitrogen 31 mg/dL (9-16); Calcium 9.3 mg/dL (8.4-10.2); Carbon Dioxide 23 mmol/L (22-29); Chloride 109 mmol/L (96-108); Creatinine Clr Calc Pharmacy 39.5; Estimated Glomerular Filt Rate 46; Ethanol < 10 mg/dL; Glucose Random 101 mg/dL (60-115); Lipase 14 U/L (8-78); Potassium 4.5 mmol/L (3.3-5.1); Sodium 141 mmol/L (135-145); Total Protein 7.8 g/dL (6.5-8.0)
[2022-03-18 18:39] LABS: Amphetamine Screen Urine Not Detected (Not Detect); Barbiturates, Urine Not Detected (Not Detect); Benzodiazepines Screen Urine Not Detected (Not Detect); Cannabinoid Screen Urine Not Detected (Not Detect); Cocaine Screen Urine Not Detected (Not Detect); Fentanyl, urine Not Detected (Not Detect); Opiate Screen Urine Not Detected (Not Detect); Phencyclidine Screen Urine Not Detected (Not Detect)
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
[2022-03-18] MEDS: Acetaminophen 325 MG TABLET 650 MG PO (19:27)
[2022-03-18 20:00] VITALS: BP 166/67; PULSE 77; RESP 16; TEMP 36.9; O2SAT 97
--- NOTE | 2022-03-18 20:31 | PC.NURSE ---
2000 rounding done ,pt had 2 sandwiches and 2 can shoshana dennis for dinner ,for snack pt had 2 vanilla pudding ,pt vs taken ,pitcher of shoshana dennis given with ice ,warm blankets given ,pt refused to remove his jeans ,i offer him rebeca pants ,put pt refused ,stated he wants to keep his jeans on .
[2022-03-18 22:00] VITALS: BP 171/76; PULSE 70; RESP 16; TEMP 36.9; O2SAT 95
--- NOTE | 2022-03-18 22:10 | PC.NURSE ---
2200 ROUNDING DONE PT SLEEPING ,VS TAKEN CALL ROSARIO WITHIN REACH .
[2022-03-19] VITALS (7 sets, daily range): BP systolic 109–180; BP diastolic 51–90; PULSE 68–78; RESP 16–20; TEMP 36.3–37.1; O2SAT 92–97
--- NOTE | 2022-03-19 10:27 | PHA.MEDREC ---
Pharmacy Consult ? Medication Reconciliation Pharmacy has completed the medication reconciliation. PATIENT VERY CONFUSED. CALLED DR AGUIRRE AND LUZ ELENA Alcantara FOR MED LIST Kwame
[2022-03-19] MEDS: Acetaminophen 325 MG TABLET 650 MG PO ×3 (10:48→22:06)
[2022-03-19 12:11] LABS: Appearance Urine Cloudy; Color Urine Yellow; Glucose Urine UA Negative (Negative); Leukocyte Esterase Urine Large (3+) (Negative); Nitrite Urine Positive (Negative); PH >= 9.0 (5.0-9.0); UMIC TRIGGER UACC YES; Urine Blood Negative (Negative); Urine Ketones Negative (Negative); Urine Protein 100 (2+) mg/dL (Neg-Trace)
[2022-03-19 12:24] LABS: Bacteria Urine 4+ (None Seen); Hyaline Casts Urine 0-2 /LPF (0-2); RBC Urine 0-2 /HPF (0-2); Squamous Epithelial Cell Urine 0-2 /HPF (0-2); UACC Culture Trigger YES; WBC Urine >50 /HPF (0-5)
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
--- NOTE | 2022-03-19 16:04 | PC.NURSE ---
1600 rounding done ,pt vs taken ,fresh pitcher of shoshana dennis was given with ice .
[2022-03-19] MEDS: Atorvastatin Calcium 80 MG TABLET PO (16:09)
[2022-03-19] MEDS: Levothyroxine Sodium 50 MCG TABLET PO (16:09)
[2022-03-19] MEDS: amLODIPine Besylate 5 MG TABLET PO (16:09)
[2022-03-19] MEDS: Sertraline HCL 100 MG TABLET PO (16:09)
[2022-03-19] MEDS: Isosorbide Mononitrate 30 MG TAB.ER.24H PO (16:10)
[2022-03-19] MEDS: Aspirin Enteric Coated 81 MG TABLET.DR PO (16:10)
[2022-03-19] MEDS: hydroCHLOROthiazide 12.5 MG TABLET PO (16:10)
[2022-03-19] MEDS: lisinopriL 20 MG TABLET PO (16:10)
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
--- NOTE | 2022-03-19 20:06 | PC.NURSE ---
PT ATE 100 % OF MEAL ,DRANK 600 ML FLUIDS ,PT IS CURRENTLY WATCHING TELEVISION .
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
[2022-03-19] MEDS: Sennosides 8.6 MG TABLET 17.2 MG PO (22:06)
[2022-03-19] MEDS: Tamsulosin HCL 0.4 MG CAPSULE 0.8 MG PO (22:06)
--- NOTE | 2022-03-20 00:35 | PC.NURSE ---
0000 rounding done pt asleep ,call [facility] within reach .
[2022-03-20] MEDS: QUEtiapine Fumarate 25 MG TABLET PO (02:00)
--- NOTE | 2022-03-20 04:05 | PC.NURSE ---
0400 rounding done ,pt sleeping ,call [facility] within reach .
[2022-03-20] MEDS: Levothyroxine Sodium 50 MCG TABLET PO (05:51)
[2022-03-20 06:00] VITALS: BP 126/62; PULSE 61; RESP 18; TEMP 36.5; O2SAT 98
[2022-03-20] MEDS: Sertraline HCL 100 MG TABLET PO (09:17)
[2022-03-20] MEDS: Acetaminophen 325 MG TABLET 650 MG PO ×2 (09:17→19:43)
[2022-03-20] MEDS: lisinopriL 20 MG TABLET PO (09:17)
[2022-03-20] MEDS: Aspirin Enteric Coated 81 MG TABLET.DR PO (09:17)
[2022-03-20] MEDS: Isosorbide Mononitrate 30 MG TAB.ER.24H PO (09:17)
[2022-03-20] MEDS: hydroCHLOROthiazide 12.5 MG TABLET PO (09:17)
[2022-03-20] MEDS: amLODIPine Besylate 5 MG TABLET PO (09:18)
[2022-03-20] MEDS: Atorvastatin Calcium 80 MG TABLET PO (09:18)
[2022-03-20 10:52] LABS: Alanine Aminotransferase 23 U/L (0-40); Albumin Level 3.4 g/dL (3.5-5.0); Alkaline Phosphatase 81 U/L (39-117); Aspartate Amino Transferase 30 U/L (5-37); Bilirubin Total 0.6 mg/dL (0.0-1.0); Blood Urea Nitrogen 27 mg/dL (9-16); Calcium 8.4 mg/dL (8.4-10.2); Creatinine Clr Calc Pharmacy 35.8; Estimated Glomerular Filt Rate 41; Glucose Random 177 mg/dL (60-115); Total Protein 6.5 g/dL (6.5-8.0)
[2022-03-20 11:01] LABS: Anion Gap 13 (12-20); Carbon Dioxide 20 mmol/L (22-29); Chloride 105 mmol/L (96-108); Potassium 3.9 mmol/L (3.3-5.1); Sodium 134 mmol/L (135-145)
--- NOTE | 2022-03-20 14:17 | MHC.CM.PN ---
Let VM w/ Ashley to discuss HCP/Guardian/Conservator. Awaiting return call.
[2022-03-20] MEDS: Tamsulosin HCL 0.4 MG CAPSULE 0.8 MG PO (22:06)
[2022-03-20] MEDS: Sennosides 8.6 MG TABLET 17.2 MG PO (22:07)
[2022-03-21] MEDS: QUEtiapine Fumarate 25 MG TABLET PO (00:29)
--- NOTE | 2022-03-21 06:07 | PC.NURSE ---
Assumed care of pt. at 1900. Pt. resting in his room at that time. Pt. requesting tylenol. Medicated per JUN. Pt. ambulates to bathroom. Pt. requested medication to help him sleep at around midnight. PT. given seroquel PRN per JUN. Pt. awake again at around 3 requesting more medicine to help him sleep. provided order. However, when going to administer meds, pt. was asleep. Pt. still sleeping currently, will hold off for a bit on his 0600 meds as he was unable to get adequate rest through the night.
[2022-03-21 07:12] VITALS: RESP 20
[2022-03-21 09:37] VITALS: BP 150/87; PULSE 90; RESP 20; TEMP 36.4; O2SAT 95
[2022-03-21] MEDS: Isosorbide Mononitrate 30 MG TAB.ER.24H PO (09:39)
[2022-03-21] MEDS: Acetaminophen 325 MG TABLET 650 MG PO ×3 (09:39→23:33)
[2022-03-21] MEDS: hydroCHLOROthiazide 12.5 MG TABLET PO (09:39)
[2022-03-21] MEDS: Levothyroxine Sodium 50 MCG TABLET PO (09:39)
[2022-03-21] MEDS: amLODIPine Besylate 5 MG TABLET PO (09:39)
[2022-03-21] MEDS: lisinopriL 20 MG TABLET PO (09:39)
[2022-03-21] MEDS: Atorvastatin Calcium 80 MG TABLET PO (09:39)
[2022-03-21] MEDS: Aspirin Enteric Coated 81 MG TABLET.DR PO (09:39)
[2022-03-21] MEDS: Sertraline HCL 100 MG TABLET PO (09:39)
[2022-03-21 14:08] VITALS: BP 94/54; PULSE 88; RESP 16; TEMP 36.7; O2SAT 96
[2022-03-21 14:38] VITALS: BP 106/56; PULSE 82; RESP 18; TEMP 36.1; O2SAT 99
--- NOTE | 2022-03-21 14:46 | PC.NURSE ---
pt. alert and oriented. case management. VS wnl
--- NOTE | 2022-03-21 17:49 | PC.NURSE ---
Recevied report for pt. Pt is currently resting comfortably on stretcher. Aware of need to change faith catheter
[2022-03-21 20:23] VITALS: BP 90/47; PULSE 61; RESP 17; TEMP 36.6; O2SAT 92
[2022-03-21] MEDS: Sennosides 8.6 MG TABLET 17.2 MG PO (22:27)
[2022-03-21] MEDS: Tamsulosin HCL 0.4 MG CAPSULE 0.8 MG PO (22:27)
--- NOTE | 2022-03-21 23:05 | PC.NURSE ---
A&Ox3, PT [place], denies any pain. Scheduled tylenol affective. PT medicated as documented. Tolerating PO fluids. Will continue to monitor.
[2022-03-22 00:32] VITALS: BP 116/61; PULSE 67; RESP 17; TEMP 36.4; O2SAT 96
[2022-03-22] MEDS: Levothyroxine Sodium 50 MCG TABLET PO (06:03)
[2022-03-22 08:02] VITALS: BP 114/56; PULSE 64; RESP 16; O2SAT 95
[2022-03-22] MEDS: Isosorbide Mononitrate 30 MG TAB.ER.24H PO (08:03)
[2022-03-22] MEDS: amLODIPine Besylate 5 MG TABLET PO (08:03)
[2022-03-22] MEDS: Sertraline HCL 100 MG TABLET PO (08:03)
[2022-03-22] MEDS: lisinopriL 20 MG TABLET PO (08:04)
[2022-03-22] MEDS: Atorvastatin Calcium 80 MG TABLET PO (08:04)
[2022-03-22] MEDS: Aspirin Enteric Coated 81 MG TABLET.DR PO (08:04)
[2022-03-22] MEDS: hydroCHLOROthiazide 12.5 MG TABLET PO (08:04)
--- NOTE | 2022-03-22 08:10 | PC.NURSE ---
pt alert and oriented. very pleasant. vs wnl gave him his morning meds
[2022-03-22] MEDS: Lidocaine HCl 2 % Urojet 10 ML JEL.PF.APP TOPICAL (10:45)
[2022-03-22] MEDS: Acetaminophen 325 MG TABLET 650 MG PO ×3 (11:02→22:00)
--- NOTE | 2022-03-22 11:53 | PC.NURSE ---
pt. tried to get up to go to the bathroom and pulled on faith. When I came into the room there was blood in the faith line and he was also bleeding from his penis. I took faith out and consulted with provider. New faith was placed and use lidocaine to numb his penis. the patient tolerated the procedure well.
--- NOTE | 2022-03-22 13:32 | PC.NURSE ---
pt resting comfortably. checked faith and he is still bleeding from his penis but very little. I cleaned the area.
[2022-03-22 16:09] VITALS: BP 105/66; PULSE 66; RESP 16; O2SAT 95
--- NOTE | 2022-03-22 16:11 | PC.NURSE ---
pt. resting comfortably. vs wnl. denies pain. he had very little bleeding from penis since last checked.
[2022-03-22] MEDS: Tamsulosin HCL 0.4 MG CAPSULE 0.8 MG PO (20:52)
[2022-03-22] MEDS: Sennosides 8.6 MG TABLET 17.2 MG PO (20:52)
[2022-03-22 21:05] VITALS: BP 96/50; PULSE 66; TEMP 36.7; O2SAT 96
[2022-03-23] MEDS: Levothyroxine Sodium 50 MCG TABLET PO (05:32)
--- NOTE | 2022-03-23 06:17 | PC.NURSE ---
Pt has urine with a red hue. Findings are compatible with catheter replacement yesterday during the daytime.
[2022-03-23 06:19] VITALS: PULSE 66; RESP 16
[2022-03-23 08:51] VITALS: BP 122/64; PULSE 87; RESP 19; TEMP 36.9; O2SAT 96
[2022-03-23] MEDS: Aspirin Enteric Coated 81 MG TABLET.DR PO (09:56)
[2022-03-23] MEDS: hydroCHLOROthiazide 12.5 MG TABLET PO (09:56)
[2022-03-23] MEDS: Isosorbide Mononitrate 30 MG TAB.ER.24H PO (09:56)
[2022-03-23] MEDS: amLODIPine Besylate 5 MG TABLET PO (09:57)
[2022-03-23] MEDS: Acetaminophen 325 MG TABLET 650 MG PO ×2 (09:57→21:30)
[2022-03-23] MEDS: lisinopriL 20 MG TABLET PO (09:57)
[2022-03-23] MEDS: Atorvastatin Calcium 80 MG TABLET PO (09:57)
[2022-03-23] MEDS: Sertraline HCL 100 MG TABLET PO (09:57)
--- NOTE | 2022-03-23 12:09 | PC.NURSE ---
PT FOUND IN THE NURSES STATION, AGITATED AND ASKING TO BE DISCHARGE HOME TO COLLECT HIS THINGS. BED PLACEMENT PENDING.
--- NOTE | 2022-03-23 12:57 | PC.NURSE ---
Pt out of bed to use commode, however, unable to have bowel movement. Back into bed resting quietly
--- NOTE | 2022-03-23 14:46 | MHC.CM.ED ---
Patient remains in ER. Medical certificate signed by Dr Reyes. All guardianship paperwork submitted to Corinna & Juan by Bharati Ly. Waiting for court date to be assigned. Continue to monitor for d/c needs.
--- NOTE | 2022-03-23 17:39 | PC.NURSE ---
Pt off and on requesting to speak to stations superintendent. Stating that people from [place] are keeping him in this facility. Able to be redirected and calmed down. Pt resting in bed watching television at this time. Zaman is in place.
[2022-03-23] MEDS: Sennosides 8.6 MG TABLET 17.2 MG PO (21:30)
[2022-03-23] MEDS: Tamsulosin HCL 0.4 MG CAPSULE 0.8 MG PO (21:31)
--- NOTE | 2022-03-23 21:34 | PC.NURSE ---
Administered PO meds per MAR.
[2022-03-23 21:36] VITALS: BP 122/55; PULSE 72; RESP 17; TEMP 36.5; O2SAT 95
--- NOTE | 2022-03-23 21:41 | PC.NURSE ---
Patient is resting quietly watching tv. No apparent distress. Warm blanket given per request of patient. VS assessed.
[2022-03-24] MEDS: Acetaminophen 325 MG TABLET 650 MG PO ×3 (04:13→22:00)
--- NOTE | 2022-03-24 04:15 | PC.NURSE ---
Administered tylenol 650 mg PO per MAR .
[2022-03-24 04:17] VITALS: BP 113/46; PULSE 62; RESP 14; TEMP 36.8; O2SAT 95
--- NOTE | 2022-03-24 04:22 | PC.NURSE ---
Patient was sleeping. VS assessed. Patient is now resting quietly. No apparent distress.
[2022-03-24] MEDS: Levothyroxine Sodium 50 MCG TABLET PO (05:09)
--- NOTE | 2022-03-24 05:09 | PC.NURSE ---
Administered levothyroxine 50 mcg PO per MAR.
[2022-03-24 07:52] VITALS: BP 112/58; PULSE 71; RESP 16; TEMP 36.7; O2SAT 96
[2022-03-24] MEDS: lisinopriL 20 MG TABLET PO (09:34)
[2022-03-24] MEDS: Isosorbide Mononitrate 30 MG TAB.ER.24H PO (09:34)
[2022-03-24] MEDS: Atorvastatin Calcium 80 MG TABLET PO (09:34)
[2022-03-24] MEDS: hydroCHLOROthiazide 12.5 MG TABLET PO (09:34)
[2022-03-24] MEDS: amLODIPine Besylate 5 MG TABLET PO (09:35)
[2022-03-24] MEDS: Sertraline HCL 100 MG TABLET PO (09:35)
[2022-03-24] MEDS: Aspirin Enteric Coated 81 MG TABLET.DR PO (09:35)
[2022-03-24 14:37] VITALS: BP 118/97; PULSE 69; RESP 16; O2SAT 96
[2022-03-24 16:23] VITALS: BP 118/60; PULSE 64; RESP 16; TEMP 36.8; O2SAT 96
[2022-03-24 21:57] VITALS: BP 109/55; PULSE 61; RESP 14; TEMP 36.6; O2SAT 94
[2022-03-24] MEDS: Sennosides 8.6 MG TABLET 17.2 MG PO (22:00)
[2022-03-24] MEDS: Tamsulosin HCL 0.4 MG CAPSULE 0.8 MG PO (22:00)
[2022-03-25] MEDS: Melatonin 3 MG TABLET 6 MG PO (00:57)
[2022-03-25 06:04] VITALS: RESP 16; O2SAT 96
[2022-03-25] MEDS: Levothyroxine Sodium 50 MCG TABLET PO (07:07)
[2022-03-25] MEDS: Isosorbide Mononitrate 30 MG TAB.ER.24H PO (08:22)
[2022-03-25] MEDS: Aspirin Enteric Coated 81 MG TABLET.DR PO (08:22)
[2022-03-25] MEDS: Sertraline HCL 100 MG TABLET PO (08:22)
[2022-03-25] MEDS: amLODIPine Besylate 5 MG TABLET PO (08:22)
[2022-03-25] MEDS: hydroCHLOROthiazide 12.5 MG TABLET PO (08:22)
[2022-03-25] MEDS: lisinopriL 20 MG TABLET PO (08:22)
[2022-03-25] MEDS: Atorvastatin Calcium 80 MG TABLET PO (08:22)
[2022-03-25 08:27] VITALS: BP 107/61; PULSE 83; RESP 18; TEMP 36.6; O2SAT 95
[2022-03-25] MEDS: Acetaminophen 325 MG TABLET 650 MG PO ×3 (09:53→22:52)
[2022-03-25 16:23] VITALS: BP 88/49; PULSE 60; RESP 18; TEMP 36.1; O2SAT 95
--- NOTE | 2022-03-25 16:25 | PC.NURSE ---
patient hypotensive vitals 88/46 and reports feeling fatigued .Provider Salma Fernandez made aware and at bedside . IV placed in left A.C order for 1 liter of fluids obtained and started . patient aware of plan of care .
[2022-03-25] MEDS: 0.9 % Sodium Chloride 1,000 ML 999 ML IV (16:30)
[2022-03-25 17:01] VITALS: BP 98/50; PULSE 64; RESP 18; O2SAT 95
[2022-03-25 18:52] VITALS: BP 132/51; PULSE 80; RESP 18; O2SAT 95
--- NOTE | 2022-03-25 18:53 | PC.NURSE ---
After 1 liter of fluid as order blood pleasure improved to 132/51 . patient reports feeling better . patient aware of plan of care
[2022-03-25] MEDS: Sennosides 8.6 MG TABLET 17.2 MG PO (21:21)
[2022-03-25] MEDS: Tamsulosin HCL 0.4 MG CAPSULE 0.8 MG PO (21:21)
[2022-03-25 22:00] VITALS: BP 112/48; PULSE 61; RESP 18; TEMP 36.5; O2SAT 94
--- NOTE | 2022-03-26 02:02 | PC.NURSE ---
pt pulling at faith and states it is sore, faith secured and camera placed in pt room at the request of the nurse.
--- NOTE | 2022-03-26 02:07 | PC.NURSE ---
pt assisted to bedside commode states wanted to try to have a BM. pt also playing and grabbing at faith catheter. cupola charger made aware. awaiting camera to be placed in room
--- NOTE | 2022-03-26 02:43 | PC.NURSE ---
pt reporting increased discomfort in abdomen near urinary tract. pt requesting Tylenol. this rn reported this to dr davila at this time. MD marino'ed to [id number] dose tylenol at this time.
[2022-03-26] MEDS: Acetaminophen 325 MG TABLET 650 MG PO ×2 (02:45→17:58)
--- NOTE | 2022-03-26 05:15 | PC.NURSE ---
pt complains of discomfort in suprapubic area. bladder scan performed. 900mls present on bladder scan. attempted to irrigate faith with no success. provider notified. Verbal order obtained for faith change. Previous faith removed with small amount of bright red blood from urethra, 8ml removed from balloon. new 18 fr faith inserted using sterile technique. balloon inflated with 10cc sterile water. initial urine blood tinged, urine flow changed light yellow. total urine with faith insertion 1400ml. pt tolerated procedure well. pt reports relief of suprapubic pain. pt resting in bed, call [facility] within reach
[2022-03-26 05:37] VITALS: BP 111/60; PULSE 66; RESP 16; TEMP 36.6; O2SAT 94
--- NOTE | 2022-03-26 05:39 | PC.NURSE ---
post faith insertion bladder scan performed. bladder scan showed 124ml urine present in bladder at this time. pt reports pain in suprapubic area has resolved at this time. pt resting comfortably in bed call [facility] in reach
[2022-03-26] MEDS: Levothyroxine Sodium 50 MCG TABLET PO (06:25)
[2022-03-26 09:03] VITALS: BP 144/78; PULSE 67; RESP 16; O2SAT 97
[2022-03-26] MEDS: Aspirin Enteric Coated 81 MG TABLET.DR PO (09:06)
[2022-03-26] MEDS: lisinopriL 20 MG TABLET PO (09:06)
[2022-03-26] MEDS: hydroCHLOROthiazide 12.5 MG TABLET PO (09:06)
[2022-03-26] MEDS: Sertraline HCL 100 MG TABLET PO (09:06)
[2022-03-26] MEDS: Atorvastatin Calcium 80 MG TABLET PO (09:06)
[2022-03-26] MEDS: amLODIPine Besylate 5 MG TABLET PO (09:06)
[2022-03-26] MEDS: Isosorbide Mononitrate 30 MG TAB.ER.24H PO (09:06)
[2022-03-26 16:11] VITALS: BP 138/79; PULSE 71; RESP 16; O2SAT 97
--- NOTE | 2022-03-26 18:48 | PC.NURSE ---
Pt resting comfortably on bed at this time. States he is disappointed that no one caught his catheter problem earlier . This RN apologized and explained that we will check and make sure his catheter is draining properly throughtout the shift today
[2022-03-26] MEDS: Tamsulosin HCL 0.4 MG CAPSULE 0.8 MG PO (21:07)
[2022-03-26] MEDS: Sennosides 8.6 MG TABLET 17.2 MG PO (21:07)
[2022-03-26 21:51] VITALS: BP 112/54; PULSE 62; RESP 18; TEMP 37.1; O2SAT 95
[2022-03-27] VITALS: BP 122/51; PULSE 64; RESP 12; TEMP 36.6; O2SAT 95
[2022-03-27] MEDS: diphenhydrAMINE HCL 25 MG CAPSULE PO
--- NOTE | 2022-03-27 03:00 | PC.NURSE ---
pt sleeping at this time, respirations are even and unlabored, no apparent distress
--- NOTE | 2022-03-27 04:13 | PC.NURSE ---
check in on pt he is sleeping comfortable
--- NOTE | 2022-03-27 05:41 | PC.NURSE ---
Assumed care of pt at 0300. Pt. sleeping at this time. Respirations even and unlabored. Charged against tylenol as pt. sleeping and previously had a difficult time falling asleep.
[2022-03-27 06:10] VITALS: BP 121/69; PULSE 69; RESP 18; TEMP 36.7; O2SAT 96
--- NOTE | 2022-03-27 06:12 | PC.NURSE ---
pt had 600 out of his Zaman
[2022-03-27 07:50] VITALS: BP 123/59; PULSE 73; RESP 18; TEMP 36.5; O2SAT 99
[2022-03-27] MEDS: amLODIPine Besylate 5 MG TABLET PO (09:55)
[2022-03-27] MEDS: Acetaminophen 325 MG TABLET 650 MG PO ×2 (09:55→21:23)
[2022-03-27] MEDS: Aspirin Enteric Coated 81 MG TABLET.DR PO (09:56)
[2022-03-27] MEDS: Isosorbide Mononitrate 30 MG TAB.ER.24H PO (09:56)
[2022-03-27] MEDS: lisinopriL 20 MG TABLET PO (09:57)
[2022-03-27] MEDS: Levothyroxine Sodium 50 MCG TABLET PO (09:57)
[2022-03-27] MEDS: hydroCHLOROthiazide 12.5 MG TABLET PO (09:57)
[2022-03-27] MEDS: Sertraline HCL 100 MG TABLET PO (09:57)
[2022-03-27] MEDS: Atorvastatin Calcium 80 MG TABLET PO (09:57)
--- NOTE | 2022-03-27 14:51 | PC.NURSE ---
Pt agitated and confused throughout the shift. Asking for power plant operators supervisor and reust transfer to [facility]. Upset about not utilizing a phone but when asked ow this RN can assist pt unsure d/t [place] status. Pt also reports being upset about a situation with faith cath yesterday. Mud Plant Operator to bedside per pt request. Pt also cleaned, some stool incontinence noted. Faith cath care provided. Linens changed. Ate lunch 100%
[2022-03-27 15:56] VITALS: BP 113/41; PULSE 8; RESP 18; TEMP 36.6; O2SAT 98
[2022-03-27] MEDS: Tamsulosin HCL 0.4 MG CAPSULE 0.8 MG PO (21:18)
[2022-03-28] MEDS: Levothyroxine Sodium 50 MCG TABLET PO (05:11)
[2022-03-28 06:00] VITALS: BP 137/61; PULSE 59; TEMP 36.6; O2SAT 99
[2022-03-28] MEDS: Sertraline HCL 100 MG TABLET PO (09:15)
[2022-03-28] MEDS: Aspirin Enteric Coated 81 MG TABLET.DR PO (09:15)
[2022-03-28] MEDS: Isosorbide Mononitrate 30 MG TAB.ER.24H PO (09:15)
[2022-03-28] MEDS: hydroCHLOROthiazide 12.5 MG TABLET PO (09:15)
[2022-03-28] MEDS: Atorvastatin Calcium 80 MG TABLET PO (09:16)
[2022-03-28] MEDS: lisinopriL 20 MG TABLET PO (09:16)
[2022-03-28] MEDS: amLODIPine Besylate 5 MG TABLET PO (09:16)
--- NOTE | 2022-03-28 10:59 | PC.NURSE ---
patient clean and wash. complete bed change.
[2022-03-28 17:52] VITALS: BP 116/56; PULSE 67; RESP 16; O2SAT 96
--- NOTE | 2022-03-28 19:12 | MHC.EDTECH ---
rounding done ,pt was given dinner ate 100 % of spaghetti dinner and drank 600 ml fluids ,call [facility] within reach .
[2022-03-28] MEDS: Tamsulosin HCL 0.4 MG CAPSULE 0.8 MG PO (20:33)
--- NOTE | 2022-03-28 20:34 | PC.NURSE ---
Administered meds per MAR. Patient resting quietly. No apparent distress.
[2022-03-28] MEDS: Sennosides 8.6 MG TABLET 17.2 MG PO (20:40)
--- NOTE | 2022-03-28 20:48 | MHC.EDTECH ---
pt had a bed bath ,and bedding change .
--- NOTE | 2022-03-28 21:06 | PC.NURSE ---
Pt refused one of the sennoside 8.6 mg tabs out of the two prescribed. Patient stated the dose was too much for him and caused him to have diarrhea.
[2022-03-28] MEDS: Acetaminophen 325 MG TABLET 650 MG PO (21:20)
[2022-03-28 22:00] VITALS: BP 109/64; PULSE 58; RESP 16; TEMP 37.2; O2SAT 98
--- NOTE | 2022-03-28 22:30 | MHC.EDTECH ---
2200 rounding done on pt ,vitals sign taken ,faith cathether out put 700 ml,fresh pitcher of water given ,i ask pt if he needed anything ,pt said no ,pt watching a movie on television ,call [facility] within reach .
--- NOTE | 2022-03-29 00:13 | MHC.EDTECH ---
0000 rounding done ,pt is awake and ask to turn lights off .
--- NOTE | 2022-03-29 02:28 | MHC.EDTECH ---
0200 rounding done ,pt asleep .
--- NOTE | 2022-03-29 02:46 | PC.NURSE ---
Patient sleeping. No apparent distress.
--- NOTE | 2022-03-29 05:02 | PC.NURSE ---
Zaman emptied and output recorded- 450 mL; urine specimen sent to lab
[2022-03-29] MEDS: Levothyroxine Sodium 50 MCG TABLET PO (05:10)
[2022-03-29 05:15] LABS: Appearance Urine Cloudy; Color Urine Yellow; Glucose Urine UA Negative (Negative); Leukocyte Esterase Urine Moderate (2+) (Negative); Nitrite Urine Positive (Negative); Specific Gravity - Urine 1.015 (1.005-1.025); UMIC TRIGGER UACC YES; Urine Blood Moderate (2+) (Negative); Urine Ketones Negative (Negative); Urine Protein 30 (1+) mg/dL (Neg-Trace)
[2022-03-29 05:17] VITALS: BP 115/54; PULSE 60; RESP 15; TEMP 36.5; O2SAT 98
[2022-03-29 05:20] LABS: Bacteria Urine 4+ (None Seen); Hyaline Casts Urine 0-2 /LPF (0-2); Squamous Epithelial Cell Urine 0-2 /HPF (0-2); UACC Culture Trigger YES; WBC Urine 21-50 /HPF (0-5)
[2022-03-29 05:25] VITALS: BP 115/54; PULSE 59; TEMP 36.8; O2SAT 96
[2022-03-29 07:50] VITALS: BP 108/52; PULSE 69; RESP 15; TEMP 36.7; O2SAT 99
[2022-03-29] MEDS: lisinopriL 20 MG TABLET PO (07:53)
[2022-03-29] MEDS: amLODIPine Besylate 5 MG TABLET PO (07:53)
[2022-03-29] MEDS: Isosorbide Mononitrate 30 MG TAB.ER.24H PO (07:53)
[2022-03-29] MEDS: Sertraline HCL 100 MG TABLET PO (07:53)
[2022-03-29] MEDS: hydroCHLOROthiazide 12.5 MG TABLET PO (07:54)
[2022-03-29] MEDS: Aspirin Enteric Coated 81 MG TABLET.DR PO (07:54)
[2022-03-29] MEDS: Atorvastatin Calcium 80 MG TABLET PO (07:54)
--- NOTE | 2022-03-29 11:17 | PC.NURSE ---
Pt medicated per the MAR, resting quietly at this time.
--- NOTE | 2022-03-29 13:43 | PC.NURSE ---
Pt out of bed in hallway demanding his phone. Redirected back to room, linens changed and wipes provided for pt. Zaman emptied 1400ml.
[2022-03-29] MEDS: levoFLOXacin 750 MG TABLET PO (13:58)
[2022-03-29] MEDS: Acetaminophen 325 MG TABLET 650 MG PO (13:58)
--- NOTE | 2022-03-29 14:34 | PC.NURSE ---
Pt ate lunch, now resting in bed watching TV
[2022-03-29 15:44] VITALS: BP 102/46; PULSE 64; RESP 16; TEMP 37.1; O2SAT 98
[2022-03-30] MEDS: Acetaminophen 325 MG TABLET 650 MG PO ×4 (02:30→21:28)
[2022-03-30] MEDS: Tamsulosin HCL 0.4 MG CAPSULE 0.8 MG PO ×2 (02:30→21:28)
--- NOTE | 2022-03-30 02:38 | PC.NURSE ---
Assumed care of pt. at 1900. Pt. wandering at that time looking for phone. This RN was in another pt. room, Adiana able to help pt. and provide him with a snack and get him tucked back into bed. Pt. was asleep and therefore, night time meds not given right away. During rounds pt. reported being woken up from having his trash bins changed by environmental. Pt. unable to go back to sleep. Pt. medicated with tylenol and tamsulosin at this time. Pt. refused the sennakot. Pt. is going to try and go back to sleep after taking his meds. Will monitor and request additional meds for sleep if needed.
--- NOTE | 2022-03-30 03:26 | PC.NURSE ---
Pt. sleeping at this time. Respirations even and unlabored.
[2022-03-30] MEDS: lisinopriL 20 MG TABLET PO (09:22)
[2022-03-30] MEDS: Aspirin Enteric Coated 81 MG TABLET.DR PO (09:23)
[2022-03-30] MEDS: Isosorbide Mononitrate 30 MG TAB.ER.24H PO (09:23)
[2022-03-30] MEDS: Sertraline HCL 100 MG TABLET PO (09:23)
[2022-03-30] MEDS: amLODIPine Besylate 5 MG TABLET PO (09:23)
[2022-03-30] MEDS: hydroCHLOROthiazide 12.5 MG TABLET PO (09:24)
[2022-03-30 09:26] VITALS: BP 135/66; PULSE 71; RESP 16; TEMP 37; O2SAT 96
[2022-03-30 10:22] LABS: Anion Gap 11 (12-20); Blood Urea Nitrogen 40 mg/dL (9-16); Carbon Dioxide 24 mmol/L (22-29); Chloride 104 mmol/L (96-108); Creatinine Clr Calc Pharmacy 32.6; Estimated Glomerular Filt Rate 37; Glucose Random 138 mg/dL (60-115); Potassium 4.2 mmol/L (3.3-5.1); Sodium 135 mmol/L (135-145)
--- NOTE | 2022-03-30 10:39 | PC.NURSE ---
patient had a bowel movement, was cleaned and changed into fresh linen and clean hospital gown. patient is comfortable, no signs of distress. rn aware.
--- NOTE | 2022-03-30 15:49 | MHC.CM.ED ---
This law writer served this patient with temporary guardianship paperwork and notice of hearing virtually on Apr 07 at 2 pm. Pt had difficulty focusing on what this law writer was saying and continued to try and speak about his foreclosed home and value of artwork in his home. This law writer re-directed patient 3 times, explaining that this paperwork has nothing to do with his foreclosed home and has to do with the hospital petitioning for guardianship for him; that psych has determined that he does not have the capacity to make his own decisions and care for himself. This law writer explained that he has the right to virtually attend this hearing if he desires. Pt requested to have time to read through the paperwork. This law writer signed the Returns of Services forms x2 and returned them to Bharati Ly, Director of Transitional Care. CM will continue to follow for discharge needs.
[2022-03-30] MEDS: OLANZapine 10 MG TABLET PO (16:52)
[2022-03-30 16:55] VITALS: BP 106/52; PULSE 73; RESP 16; TEMP 36.6; O2SAT 99
--- NOTE | 2022-03-30 21:13 | MHC.EDTECH ---
PT ATE 100 % OF DINNER ,DRANK 480 ML FLUIDS ,PT GOT CLEAN UP AND WAS CHANGE INTO CLEAN HOSPITAL ATTIRE ,COMPLETE BED CHANGE DONE .
[2022-03-30] MEDS: Sennosides 8.6 MG TABLET 17.2 MG PO (21:28)
[2022-03-30 22:00] VITALS: BP 96/46; PULSE 72; RESP 16; TEMP 36.2; O2SAT 98
--- NOTE | 2022-03-30 23:48 | MHC.EDTECH ---
0000 rounding done ,pt was incontinent of small amount of bowel movement ,care given ,bed pads change ,3 warm blankets given .
[2022-03-31 06:00] VITALS: BP 144/67; PULSE 74; RESP 16; TEMP 36.2; O2SAT 98
--- NOTE | 2022-03-31 07:47 | PC.NURSE ---
this investigative writer assumed care of this pt at 0700. pt sleeping at the time of assuming care. 0600 med not given by previous RN. This investigative writer will administer 0600 med.
[2022-03-31] MEDS: Levothyroxine Sodium 50 MCG TABLET PO (08:36)
[2022-03-31] MEDS: Acetaminophen 325 MG TABLET 650 MG PO ×2 (08:37→21:32)
[2022-03-31 09:07] LABS: MANUAL DIFF FLAG NO
[2022-03-31 09:08] LABS: Basophils Absolute Auto 0.1 X10*3/uL (0.0-0.2); Basophils Percent Auto 1.4 % (0-2); Eosinophils Absolute Auto 0.5 X10*3/uL (0.0-0.4); Eosinophils Percent Auto 6.2 % (0-4); Hematocrit 44.3 % (42.0-52.0); Hemoglobin 14.1 g/dl (14.0-18.0); Imm Gran Abs Auto 0.06 X10*3/uL (0.00-0.03); Imm Gran Pct Auto 0.8 % (0.0-0.4); Lymphocytes Absolute Auto 1.7 X10*3/uL (1.2-4.9); Lymphocytes Percent Auto 22.7 % (20-40); Mean Corpuscular HGB Conc 31.8 g/dl (31.0-36.0); Mean Corpuscular Hemoglobin 26.9 pg (27.0-33.0); Mean Corpuscular Volume 84.4 fL (80.0-98.0); Monocytes Absolute Auto 0.5 X10*3/uL (0.1-1.2); Monocytes Percent Auto 6.6 % (2-11); Neutrophils Absolute Auto 4.8 x10*3/uL (2.0-8.3); Neutrophils Percent Auto 62.3 % (45-73); Platelet Count 293 X10*3/uL (160-400); Red Blood Count 5.25 X10*6/uL (4.60-5.80); Red Cell Distribution Width 15.7 % (11.0-16.0); White Blood Count 7.6 X10*3/uL (4.8-10.8)
[2022-03-31] MEDS: Sertraline HCL 100 MG TABLET PO (09:44)
[2022-03-31] MEDS: lisinopriL 20 MG TABLET PO (09:44)
[2022-03-31] MEDS: Aspirin Enteric Coated 81 MG TABLET.DR PO (09:45)
[2022-03-31] MEDS: amLODIPine Besylate 5 MG TABLET PO (09:45)
[2022-03-31] MEDS: Isosorbide Mononitrate 30 MG TAB.ER.24H PO (09:45)
[2022-03-31] MEDS: hydroCHLOROthiazide 12.5 MG TABLET PO (09:50)
[2022-03-31 09:52] VITALS: BP 172/85; PULSE 68; RESP 18; TEMP 36.4; O2SAT 98
--- NOTE | 2022-03-31 10:07 | PC.NURSE ---
patient awake/alert to baseline, faith cath patient/draining clear yellow urine, pt turned/positioned to comfort, vss, pt took pills whole with water, fall precautions in place, camera intact, call [facility] within reach, will continue to monitor
--- NOTE | 2022-03-31 11:35 | PC.NURSE ---
pt currently sleeping, faith cath patient/draining will continue to monitor
[2022-03-31] MEDS: levoFLOXacin 750 MG TABLET PO (13:43)
--- NOTE | 2022-03-31 13:44 | PC.NURSE ---
pt sleeping, woke to verbal stimulus, pt medicated with abx per order, faith cath patient/draining clear yellow urine, fall precautions in place, will continue to monitor
--- NOTE | 2022-03-31 15:18 | PC.NURSE ---
pt currently sleeping, faith cath patient/draining, fall precautions intact, will continue to monitor
--- NOTE | 2022-03-31 15:55 | MHC.CM.ED ---
Received notification, Kenneth Lux, patient's court appointment collections attorney, requested return telephone call. T/W spoke with Kenneth via telephone at [phone]. Background information provided via telephone. Kenneth is requesting to speak with the patient via telephone. Kristin BROUSSARD aware and will find a portable phone so Kenneth and patient can speak via telephone. Continue to monitor for d/c needs.
--- NOTE | 2022-03-31 16:14 | PC.NURSE ---
appointed swimming pool cleaner contact Kenneth Jose J- [phone]
--- NOTE | 2022-03-31 16:15 | PC.NURSE ---
pts court appointed bias machine operator helper called wishing to speak with the patient, this nurse brought a cordless phone into the patients room for them to speak. this nurse later went back in to medicate the patient and the patient was upset, pt stated that he needs a FEMALE court appointed bias machine operator helper and they must come see him in person because he is unable to hear well on the phone. Will speak with case management about the situation.
[2022-03-31 16:44] VITALS: BP 127/60; PULSE 70; RESP 18; TEMP 36.4; O2SAT 98
[2022-03-31] MEDS: 0.9 % Sodium Chloride 1,000 ML 999 ML IV (17:08)
[2022-03-31] MEDS: polyethylene glycoL 3350 17 GM POWD.PACK PO (17:13)
[2022-03-31] MEDS: Mineral OiL enema 133 ML ENEMA PR (17:13)
--- NOTE | 2022-03-31 17:18 | PC.NURSE ---
ivf hung per order, pt medicated per order, will continue to monitor
[2022-03-31 17:57] LABS: Anion Gap 12 (12-20); Blood Urea Nitrogen 41 mg/dL (9-16); Calcium 9.2 mg/dL (8.4-10.2); Carbon Dioxide 28 mmol/L (22-29); Chloride 105 mmol/L (96-108); Creatinine Clr Calc Pharmacy 32.4; Estimated Glomerular Filt Rate 37; Glucose Random 122 mg/dL (60-115); Potassium 4.5 mmol/L (3.3-5.1); Sodium 140 mmol/L (135-145)
[2022-03-31] MEDS: Sennosides 8.6 MG TABLET 17.2 MG PO (21:31)
[2022-03-31] MEDS: Tamsulosin HCL 0.4 MG CAPSULE 0.8 MG PO (21:32)
[2022-03-31 22:23] VITALS: BP 111/52; PULSE 62; RESP 16; TEMP 36.6; O2SAT 96
--- NOTE | 2022-03-31 23:10 | PC.NURSE ---
This aligner typewriter assumed care of this PT at 2310.
--- NOTE | 2022-04-01 00:58 | MHC.EDTECH ---
Pt repositioned in bed. Zaman emptied, output 800. Pt requested a snack. Pt given shoshana dennis and daphne crackers. Pt bed at lowest position and bed alarm armed
--- NOTE | 2022-04-01 04:00 | MHC.EDTECH ---
Pt checked for incontinence. Pt given warm blankets and noise minimized. Call [facility] placed within reach
--- NOTE | 2022-04-01 04:54 | PC.NURSE ---
PT declined scheduled tylenol, states no headache .
[2022-04-01] MEDS: Levothyroxine Sodium 50 MCG TABLET PO (05:03)
[2022-04-01 05:31] VITALS: BP 131/53; PULSE 61; RESP 16; TEMP 36.8; O2SAT 93
--- NOTE | 2022-04-01 05:34 | MHC.EDTECH ---
Pt repositioned in the bed. Zaman emptied output 900. Pt given warm blanket. Bed at lowest position and bed alarm armed
[2022-04-01 08:10] VITALS: BP 152/60
[2022-04-01] MEDS: lisinopriL 20 MG TABLET PO (08:13)
[2022-04-01] MEDS: Isosorbide Mononitrate 30 MG TAB.ER.24H PO (08:14)
[2022-04-01] MEDS: Sertraline HCL 100 MG TABLET PO (08:14)
[2022-04-01] MEDS: Aspirin Enteric Coated 81 MG TABLET.DR PO (08:14)
[2022-04-01] MEDS: hydroCHLOROthiazide 12.5 MG TABLET PO (08:14)
[2022-04-01] MEDS: amLODIPine Besylate 5 MG TABLET PO (08:15)
[2022-04-01 13:17] LABS: Anion Gap 12 (12-20); Blood Urea Nitrogen 34 mg/dL (9-16); Calcium 9.1 mg/dL (8.4-10.2); Carbon Dioxide 27 mmol/L (22-29); Chloride 105 mmol/L (96-108); Creatinine Clr Calc Pharmacy 36.5; Estimated Glomerular Filt Rate 42; Glucose Random 116 mg/dL (60-115); Potassium 4.8 mmol/L (3.3-5.1); Sodium 139 mmol/L (135-145)
--- NOTE | 2022-04-01 13:45 | PC.NURSE ---
pt alert, weave room supervisor at bedside early afternoon - per pt he was unable to hear weave room supervisor, would like a female weave room supervisor because they pay closer attention to detail. pt upset and asking to speak to superintendent police. pt reporting that no one has been in his room, reoriented pt and explained that multiple people have been at bedside today attending to needs. tech obtained labs. no new orders at this time.
--- NOTE | 2022-04-01 15:00 | PC.NURSE ---
pt demanding to speak w supervisor vendor quality to contact female zoo director RE: legal case. pt pointed to card for a BULK PICKER called Janusz, who he said was his zoo director. redirected pt and reminded him that she was not a zoo director, pt given a marker to look through paperwork to find contact information for the zoo director that he is trying to think of. told pt this RN is unable to look through his bedside paperwork for him to find it. pt denies any urinary, or other, pain at this time.
[2022-04-01] MEDS: Acetaminophen 325 MG TABLET 650 MG PO ×2 (15:38→22:03)
--- NOTE | 2022-04-01 15:46 | PC.NURSE ---
pt medicated for 4/10 headache, given shoshana dennis
[2022-04-01 18:55] VITALS: BP 110/61; PULSE 71; RESP 18; TEMP 36.7; O2SAT 98
[2022-04-01] MEDS: Tamsulosin HCL 0.4 MG CAPSULE 0.8 MG PO (20:23)
[2022-04-01] MEDS: Sennosides 8.6 MG TABLET 17.2 MG PO (20:24)
[2022-04-01 22:08] VITALS: BP 110/51; PULSE 69; TEMP 36.6; O2SAT 95
[2022-04-02 06:00] VITALS: BP 101/56; PULSE 52; RESP 12; O2SAT 97
[2022-04-02] MEDS: Levothyroxine Sodium 50 MCG TABLET PO (06:13)
--- NOTE | 2022-04-02 08:00 | PC.NURSE ---
patient a/o to self and situation . yesica . heart rate regular at 78 beat per minute . breathing even and unlabored . lungs clear throughout . skin warm and dry . abdomen soft . positive bowel sounds in all four quadrants . Zaman catheter patent putting clear yellow urine out . patient has been calm and cooperative with taking morning medication . continues on CVM monitoring . Bed is at lowest position . patient aware of plan of care .
[2022-04-02 08:04] VITALS: BP 159/61; PULSE 62; RESP 18; TEMP 36.5; O2SAT 100
[2022-04-02] MEDS: hydroCHLOROthiazide 12.5 MG TABLET PO (08:07)
[2022-04-02] MEDS: Sertraline HCL 100 MG TABLET PO (08:07)
[2022-04-02] MEDS: Aspirin Enteric Coated 81 MG TABLET.DR PO (08:07)
[2022-04-02] MEDS: Acetaminophen 325 MG TABLET 650 MG PO ×2 (08:07→15:06)
[2022-04-02] MEDS: lisinopriL 20 MG TABLET PO (08:07)
[2022-04-02] MEDS: Isosorbide Mononitrate 30 MG TAB.ER.24H PO (08:08)
[2022-04-02] MEDS: amLODIPine Besylate 5 MG TABLET PO (08:08)
[2022-04-02 09:29] VITALS: BP 126/52; PULSE 78; RESP 20; TEMP 36.6; O2SAT 96
--- NOTE | 2022-04-02 12:19 | MHC.EDTECH ---
Pt faith emptied, 300 output. Pt resting quietly in bed watching tv.
[2022-04-02] MEDS: levoFLOXacin 750 MG TABLET PO (13:02)
[2022-04-02 14:58] VITALS: BP 98/52; PULSE 82; O2SAT 96
--- NOTE | 2022-04-02 18:59 | PC.NURSE ---
Addendum entered by Alma Ramsay RN 04/03/22 06:59: report given to AARTI Michele Addendum entered by Alma Ramsay RN 04/02/22 20:31: pt noticeto be hypotensive, alert and oriented to self, asymptomatic. verbal order for NS bolus 1L from Dr. Gonzalez Addendum entered by Alma Ramsay RN 04/02/22 19:29: pt is alert and oriented to self resting in bed no signs of acute distress notice breathing equally unlabored close monitoring maintained Original Note: report received from AARTI Obrien
[2022-04-02 19:00] VITALS: BP 85/42; PULSE 68; RESP 18; TEMP 36.9; O2SAT 97
[2022-04-02] MEDS: Sennosides 8.6 MG TABLET 17.2 MG PO (20:16)
[2022-04-02] MEDS: Tamsulosin HCL 0.4 MG CAPSULE 0.8 MG PO (20:16)
[2022-04-02 20:20] VITALS: BP 98/39; PULSE 70; RESP 20; O2SAT 94
[2022-04-02] MEDS: 0.9 % Sodium Chloride 1,000 ML 999 ML IV (20:31)
[2022-04-03 03:00] VITALS: BP 107/61; PULSE 61; RESP 18; O2SAT 93
[2022-04-03] MEDS: Acetaminophen 325 MG TABLET 650 MG PO ×3 (03:29→21:20)
[2022-04-03 06:13] VITALS: BP 122/45; PULSE 62; RESP 16; TEMP 37.1; O2SAT 93
[2022-04-03] MEDS: Levothyroxine Sodium 50 MCG TABLET PO (06:42)
[2022-04-03 08:46] VITALS: BP 118/59; PULSE 64; RESP 17; TEMP 36.7; O2SAT 95
[2022-04-03] MEDS: hydroCHLOROthiazide 12.5 MG TABLET PO (08:53)
[2022-04-03] MEDS: lisinopriL 20 MG TABLET PO (08:54)
[2022-04-03] MEDS: Sertraline HCL 100 MG TABLET PO (08:54)
[2022-04-03] MEDS: amLODIPine Besylate 5 MG TABLET PO (08:54)
[2022-04-03] MEDS: Aspirin Enteric Coated 81 MG TABLET.DR PO (08:54)
[2022-04-03] MEDS: Isosorbide Mononitrate 30 MG TAB.ER.24H PO (08:54)
--- NOTE | 2022-04-03 09:00 | PC.NURSE ---
pt is a/o with confusion. no sob/shannan noted speaks in full sentences. pt is very [place]. pt ate 75% of breakfast. meds taken whole with shoshana dennis., faith cath patent and draining. pt aware of plan of care.
--- NOTE | 2022-04-03 12:11 | PC.NURSE ---
Pt friend was contacted Elisha Esquivel [phone], requesting call back
--- NOTE | 2022-04-03 12:59 | PC.NURSE ---
pt was bathed and kody was changed along with bedding,pt had an extra large bowel movement using the commode.pt was shaved using electric shaver/razor.pt is sitting in recliner,safety alarm was attached to pts right shoulder/kody.call [place] was given,also camera remains in place.
--- NOTE | 2022-04-03 13:58 | PC.NURSE ---
pt is on the phone with his friend padmini ([phone])
[2022-04-03 14:30] VITALS: BP 101/50; PULSE 69; RESP 14; TEMP 36.6; O2SAT 97
--- NOTE | 2022-04-03 14:35 | PC.NURSE ---
pt returned to bed.
--- NOTE | 2022-04-03 19:24 | PC.NURSE ---
PT denies any pain, dinner tray given. Visitor at bedside, requested to speak to a pillowcase sewer.
--- NOTE | 2022-04-03 19:31 | MHC.CM.ED ---
Awaiting court on Apr 07 at 2pm virtually for guardianship. Pt had visitor today, Chloe Esquivel ([phone]). Spent some time with patient and then spoke with CM. Was concerned about patient's art work. CM explained that our focus is caring for patient, we have no control or information about his artwork, but patient can only focus on home and art work. Explained that patient's daughters are fully aware of the situation. Chloe asked if she could visit him and take him for a walk. Explained that she was welcome to visit, but that he cannot leave the ED. Chloe left her business card and contact information.
[2022-04-03] MEDS: Tamsulosin HCL 0.4 MG CAPSULE 0.8 MG PO (21:20)
[2022-04-03] MEDS: Sennosides 8.6 MG TABLET 17.2 MG PO (21:20)
--- NOTE | 2022-04-03 22:05 | PC.NURSE ---
PT awake, resting quietly, meds given as documented. PT requested snacks at this time. No apparent distress. Will continue to observe.
[2022-04-03 22:22] VITALS: BP 127/39; PULSE 63; TEMP 37.2; O2SAT 94
--- NOTE | 2022-04-04 01:16 | PC.NURSE ---
PT sleeping at this time. Zaman cath in place/patent draining clear yellow urine.
[2022-04-04] MEDS: Acetaminophen 325 MG TABLET 650 MG PO ×2 (03:08→09:56)
--- NOTE | 2022-04-04 03:11 | PC.NURSE ---
PT awake, reports 5/10 pelvic pain. Tylenol given PO. Zaman cath intact, draining clear yellow urine.
--- NOTE | 2022-04-04 03:54 | PC.NURSE ---
Went to talk to pt. and perform bladder scan as pt. has been reporting pain relating to his Zaman Cath. Upon entering the room, pt. is sleeping with eye mask on and snoring. Will hold off on the scan until pt. is awake.
[2022-04-04 03:55] VITALS: BP 143/55; PULSE 69; RESP 18; TEMP 36.6; O2SAT 93
--- NOTE | 2022-04-04 04:35 | PC.NURSE ---
Bladder scan completed, reading at 815mL of urine. Pt. belly is tender to the touch over the bladder.
[2022-04-04] MEDS: Levothyroxine Sodium 50 MCG TABLET PO (05:16)
--- NOTE | 2022-04-04 05:22 | PC.NURSE ---
PT continues to report pain to pubic area. Bladder scanned found to have greater then 800 ml. Irrigation attempt made, unsuccessful. Provider aware and okayed new cath changed. Upon new 18F Zaman cath insertion medium size blood clot followed by clear yellow urine drained. PT reports some relief. Will continue to monitor.
[2022-04-04] MEDS: amLODIPine Besylate 5 MG TABLET PO (09:56)
[2022-04-04] MEDS: Sertraline HCL 100 MG TABLET PO (09:57)
[2022-04-04] MEDS: Isosorbide Mononitrate 30 MG TAB.ER.24H PO (09:57)
[2022-04-04] MEDS: Aspirin Enteric Coated 81 MG TABLET.DR PO (09:57)
[2022-04-04] MEDS: lisinopriL 20 MG TABLET PO (09:57)
[2022-04-04] MEDS: hydroCHLOROthiazide 12.5 MG TABLET PO (09:57)
[2022-04-04 09:58] VITALS: BP 120/52; PULSE 70; RESP 18; O2SAT 98
[2022-04-04] MEDS: levoFLOXacin 750 MG TABLET PO (13:28)
--- NOTE | 2022-04-04 16:58 | MHC.EDTECH ---
1600 rounding done ,pt is resting quietly ,2 can of shoshana dennis given .
[2022-04-04 19:28] VITALS: BP 94/43; PULSE 62; RESP 14; TEMP 36.9; O2SAT 92
--- NOTE | 2022-04-04 19:34 | MHC.EDTECH ---
Pt given incontinence care. Pt changed into hospital gown. Pt repositioned in bed call [place] in reach and blankets given.
[2022-04-04] MEDS: Tamsulosin HCL 0.4 MG CAPSULE 0.8 MG PO (21:01)
--- NOTE | 2022-04-04 21:04 | PC.NURSE ---
Assumed care of pt. at 1900. Pt. resting in bed at this time. Pt. used the phone and watched tv. Gave pt. meds at 2099. Pt. declined devaughn as he had a large bm just yesterday.
--- NOTE | 2022-04-05 00:34 | PC.NURSE ---
Pt. sleeping in bed. Respirations even and unlabored.
[2022-04-05 01:10] VITALS: BP 112/57; PULSE 65; RESP 18; TEMP 36.4; O2SAT 94
[2022-04-05] MEDS: lisinopriL 20 MG TABLET PO (10:49)
[2022-04-05] MEDS: hydroCHLOROthiazide 12.5 MG TABLET PO (10:49)
[2022-04-05] MEDS: Aspirin Enteric Coated 81 MG TABLET.DR PO (10:49)
[2022-04-05] MEDS: Sertraline HCL 100 MG TABLET PO (10:50)
[2022-04-05] MEDS: Isosorbide Mononitrate 30 MG TAB.ER.24H PO (10:50)
[2022-04-05] MEDS: amLODIPine Besylate 5 MG TABLET PO (10:50)
[2022-04-05 11:00] VITALS: BP 109/65; PULSE 87; RESP 18; TEMP 36.8; O2SAT 97
[2022-04-05] MEDS: Acetaminophen 325 MG TABLET 650 MG PO ×2 (15:14→20:19)
[2022-04-05 18:12] VITALS: BP 154/32; PULSE 77; RESP 18; TEMP 36.7; O2SAT 98
[2022-04-05 19:06] VITALS: BP 91/53; PULSE 67; RESP 17; TEMP 36.5; O2SAT 94
--- NOTE | 2022-04-05 19:12 | PC.NURSE ---
Care of patient assumed at 1900. He is found watching TV in bed. He is alert, oriented to self, birthday, location, and year. He has finished dinner and denies any pain at the moment. Vitals checked- BP low. MD aware at this time- patient asymptomatic, denies dizziness. Call [facility] is within reach. Patient has no needs or concerns at this time. 20G PIV to LAC re-dressed, flushes.
[2022-04-05] MEDS: Tamsulosin HCL 0.4 MG CAPSULE 0.8 MG PO (20:18)
[2022-04-05] MEDS: Sennosides 8.6 MG TABLET 17.2 MG PO (20:19)
[2022-04-05 20:27] VITALS: BP 83/43; PULSE 68
[2022-04-05 23:24] VITALS: BP 90/44; PULSE 62; RESP 16; TEMP 36.4; O2SAT 95
--- NOTE | 2022-04-05 23:24 | MHC.EDTECH ---
went to check on Dewey see how he was doing and to get vitals, he ask for a J sandwich also .. i gave him the sandwich took his vitals he is all set no issues
[2022-04-06 05:33] VITALS: BP 141/57; PULSE 62; RESP 16; TEMP 36.9; O2SAT 96
[2022-04-06] MEDS: Levothyroxine Sodium 50 MCG TABLET PO (05:47)
[2022-04-06 08:16] VITALS: BP 188/79; PULSE 71; RESP 17; TEMP 36.3; O2SAT 96
[2022-04-06] MEDS: Aspirin Enteric Coated 81 MG TABLET.DR PO (08:19)
[2022-04-06] MEDS: Acetaminophen 325 MG TABLET 650 MG PO ×2 (08:20→22:34)
[2022-04-06] MEDS: Isosorbide Mononitrate 30 MG TAB.ER.24H PO (08:20)
[2022-04-06] MEDS: amLODIPine Besylate 5 MG TABLET PO (08:20)
[2022-04-06] MEDS: hydroCHLOROthiazide 12.5 MG TABLET PO (08:20)
[2022-04-06] MEDS: Sertraline HCL 100 MG TABLET PO (08:20)
[2022-04-06] MEDS: lisinopriL 20 MG TABLET PO (08:20)
--- NOTE | 2022-04-06 12:28 | PC.NURSE ---
patient alert, oriented to self and place. able to make needs known. cooperative with care. call [facility] within reach
[2022-04-06 15:45] VITALS: BP 98/42; PULSE 57; RESP 14; TEMP 36.8; O2SAT 94
[2022-04-06] MEDS: Sennosides 8.6 MG TABLET 17.2 MG PO (22:34)
[2022-04-06] MEDS: Tamsulosin HCL 0.4 MG CAPSULE 0.8 MG PO (22:35)
[2022-04-06 22:41] VITALS: BP 117/54; PULSE 62; RESP 18; TEMP 36.3; O2SAT 94
--- NOTE | 2022-04-06 23:29 | MHC.EDTECH ---
pt is reading i got him a PBJ and a shoshana dennis and gave him my chips because he wanted chips he is all set and comfortable no vitals needed at this time
[2022-04-07 05:48] VITALS: BP 114/59; PULSE 57; RESP 17; TEMP 36.6; O2SAT 97
--- NOTE | 2022-04-07 05:52 | MHC.EDTECH ---
pt vitals were taken fro 6 am he is resting comfortable no issues
[2022-04-07] MEDS: Levothyroxine Sodium 50 MCG TABLET PO (07:21)
[2022-04-07 08:06] VITALS: BP 132/70; PULSE 76; RESP 18; TEMP 36.8; O2SAT 95
[2022-04-07] MEDS: Acetaminophen 325 MG TABLET 650 MG PO ×3 (08:19→22:19)
[2022-04-07] MEDS: Aspirin Enteric Coated 81 MG TABLET.DR PO (08:19)
[2022-04-07] MEDS: lisinopriL 20 MG TABLET PO (08:20)
[2022-04-07] MEDS: Sertraline HCL 100 MG TABLET PO (08:20)
[2022-04-07] MEDS: amLODIPine Besylate 5 MG TABLET PO (08:20)
[2022-04-07] MEDS: Isosorbide Mononitrate 30 MG TAB.ER.24H PO (08:20)
[2022-04-07] MEDS: hydroCHLOROthiazide 12.5 MG TABLET PO (08:21)
--- NOTE | 2022-04-07 08:25 | PC.NURSE ---
Pt awoke this morning with productive cough, a.febrile. Requesting covid/flu test.
[2022-04-07 09:30] LABS: Influenza A PCR POSITIVE (Negative); Influenza B PCR NEGATIVE (Negative); Resp Syncy Virus RNA Qual PCR NEGATIVE (Negative); SARS COV2 PCR INHOUSE NEGATIVE (Negative)
--- NOTE | 2022-04-07 09:50 | PC.NURSE ---
Pt tests positive for flu A.
--- NOTE | 2022-04-07 09:55 | PC.NURSE ---
MD made aware of pts positive flu A status. MD to place orders for meds.
--- NOTE | 2022-04-07 10:15 | PC.NURSE ---
Charge nurse made aware of pts flu A+ status for possible bed change
[2022-04-07] MEDS: Oseltamivir Phosphate 75 MG CAPSULE PO (11:07)
--- NOTE | 2022-04-07 11:47 | PC.NURSE ---
Pt resting quietly in bed, only ate about 15% of breakfast.
[2022-04-07 15:55] VITALS: BP 138/57; PULSE 84; RESP 18; TEMP 37.3; O2SAT 97
--- NOTE | 2022-04-07 21:02 | PC.NURSE ---
Assumed care of pt. at 1900. Pt. sleeping at this time. Remainder of dinner at bedside, pt. had eaten about 25% of his meal. Pt. can be heard coughing intermittently, however, appears to be in no distress.
[2022-04-07] MEDS: Oseltamivir Phosphate 30 MG CAPSULE PO (22:19)
[2022-04-07] MEDS: Tamsulosin HCL 0.4 MG CAPSULE 0.8 MG PO (22:19)
[2022-04-08 00:14] VITALS: BP 119/64; PULSE 89; RESP 18; TEMP 37.6; O2SAT 92
[2022-04-08] MEDS: Ibuprofen 600 MG TABLET PO (01:12)
--- NOTE | 2022-04-08 01:18 | PC.NURSE ---
Pt. awake, reporting a splitting headache at a 6/10. Too early for pt. to take more tylenol. Spoke to PA and pt. given ibuprofen per JUN.
--- NOTE | 2022-04-08 02:11 | PC.NURSE ---
Pt. sleeping in bed at this time. Respirations even and unlabored.
--- NOTE | 2022-04-08 06:52 | PC.NURSE ---
Pt. sleeping in bed. Respirations even and unlabored.
[2022-04-08 08:02] VITALS: BP 100/56; PULSE 62; RESP 14; TEMP 36.5; O2SAT 94
[2022-04-08] MEDS: amLODIPine Besylate 5 MG TABLET PO (10:18)
[2022-04-08] MEDS: Aspirin Enteric Coated 81 MG TABLET.DR PO (10:18)
[2022-04-08] MEDS: Acetaminophen 325 MG TABLET 650 MG PO ×3 (10:18→21:49)
[2022-04-08] MEDS: hydroCHLOROthiazide 12.5 MG TABLET PO (10:19)
[2022-04-08] MEDS: lisinopriL 20 MG TABLET PO (10:19)
[2022-04-08] MEDS: Sertraline HCL 100 MG TABLET PO (10:19)
[2022-04-08] MEDS: Isosorbide Mononitrate 30 MG TAB.ER.24H PO (10:19)
--- NOTE | 2022-04-08 15:01 | MHC.CM.ED ---
Patient remains in ER. Patient attended virtual court with Bharait Ly, director of Case Management on 04/07 at 230pm. Guardianship was granted by diving judge. Once guardianship paperwork is completed by the court, it will be sent to [place] office and then provided to [facility]. [facility] application will need to be completed after that and then placement can be found. Continue to monitor for d/c needs.
[2022-04-08] MEDS: Oseltamivir Phosphate 30 MG CAPSULE PO ×2 (15:10→23:34)
[2022-04-08 18:13] VITALS: BP 90/38; PULSE 72; RESP 20; TEMP 36.5; O2SAT 92
[2022-04-08] MEDS: Tamsulosin HCL 0.4 MG CAPSULE 0.8 MG PO (21:48)
[2022-04-08] MEDS: Sennosides 8.6 MG TABLET 17.2 MG PO (21:49)
--- NOTE | 2022-04-08 23:53 | PC.NURSE ---
Patient cleaned and readjusted in bed. Zaman catheter cath secure replaced. Patient PALA. Camera in room. Patient denies pain. Patient has ? fungal rash in groin. Will notify MD for nystatin powder.
[2022-04-09] VITALS (19 sets, daily range): BP systolic 62–118; BP diastolic 20–63; PULSE 54–79; RESP 12–18; TEMP 36.3–37.3; O2SAT 85–97
[2022-04-09] MEDS: Melatonin 3 MG TABLET PO (02:01)
[2022-04-09] MEDS: Levothyroxine Sodium 50 MCG TABLET PO (06:25)
[2022-04-09] MEDS: hydroCHLOROthiazide 12.5 MG TABLET PO (10:04)
[2022-04-09] MEDS: Sertraline HCL 100 MG TABLET PO (10:04)
[2022-04-09] MEDS: Isosorbide Mononitrate 30 MG TAB.ER.24H PO (10:04)
[2022-04-09] MEDS: Acetaminophen 325 MG TABLET 650 MG PO ×2 (10:04→20:39)
[2022-04-09] MEDS: Oseltamivir Phosphate 30 MG CAPSULE PO ×2 (10:04→20:39)
[2022-04-09] MEDS: Aspirin Enteric Coated 81 MG TABLET.DR PO (10:04)
[2022-04-09] MEDS: amLODIPine Besylate 5 MG TABLET PO (10:05)
[2022-04-09] MEDS: lisinopriL 20 MG TABLET PO (10:05)
--- NOTE | 2022-04-09 10:59 | PC.NURSE ---
called for missing medication
--- NOTE | 2022-04-09 11:00 | PC.NURSE ---
patient alert/oriented to baseline, pt denied pain/discomfort, labs drawn, fiath cath patient/draining, fall precautions in tact, pt medicated per order, call [facility] withinr each, will continue to monitor.
[2022-04-09 11:24] LABS: Alanine Aminotransferase 21 U/L (0-40); Albumin Level 3.5 g/dL (3.5-5.0); Alkaline Phosphatase 85 U/L (39-117); Anion Gap 13 (12-20); Aspartate Amino Transferase 23 U/L (5-37); Bilirubin Total 0.3 mg/dL (0.0-1.0); Blood Urea Nitrogen 55 mg/dL (9-16); Calcium 8.2 mg/dL (8.4-10.2); Carbon Dioxide 22 mmol/L (22-29); Chloride 108 mmol/L (96-108); Creatinine Clr Calc Pharmacy 31.4; Estimated Glomerular Filt Rate 35; Glucose Random 107 mg/dL (60-115); Potassium 4.3 mmol/L (3.3-5.1); Sodium 139 mmol/L (135-145); Total Protein 6.5 g/dL (6.5-8.0)
[2022-04-09] MEDS: 0.9 % Sodium Chloride 1,000 ML 999 ML IV ×3 (12:03→16:23)
--- NOTE | 2022-04-09 12:58 | PC.NURSE ---
iv fluids started per order
[2022-04-09 14:26] LABS: Appearance Urine Clear; Color Urine Yellow; Glucose Urine UA Negative (Negative); Leukocyte Esterase Urine Small (1+) (Negative); Nitrite Urine Negative (Negative); PH 5.5 (5.0-9.0); UMIC TRIGGER UACC YES; Urine Blood Moderate (2+) (Negative); Urine Ketones Negative (Negative); Urine Protein 30 (1+) mg/dL (Neg-Trace)
[2022-04-09 14:37] LABS: Bacteria Urine None Seen (None Seen); Hyaline Casts Urine 0-2 /LPF (0-2); RBC Urine >20 /HPF (0-2); Squamous Epithelial Cell Urine 0-2 /HPF (0-2); UACC Culture Trigger YES; WBC Urine 0-5 /HPF (0-5)
--- NOTE | 2022-04-09 15:31 | PC.NURSE ---
tech came in to obtain qshift vitals and pt was found to be hypotensive, float nurse assisted with this patient and performed a manual set of vitals and found they were the same, the patient denies symptoms of hypotension- denies dizziness,lightheadedness, iv fluids started per order, will continueto monitor
--- NOTE | 2022-04-09 16:03 | PC.NURSE ---
pt continues to be hypotensive, provider is aware, ivf continue to run
--- NOTE | 2022-04-09 16:24 | PC.NURSE ---
patient sleeping, wakes to verbal stimulus, journeyman operator assistant sinus wayne 50s-60s, pt continues to be hypotensive, additional liter of fluid started per order, pts faith is patient/draining, pt continues to deny dizziness/lightheadness call [place] within reach, will continue to monitor
--- NOTE | 2022-04-09 17:57 | PC.NURSE ---
patient continues to be alert to his baseline, campus monitor sinus wayne, pts bp is hypotensive, faith cath patient/draining, pt denying dizziness or lightheadness and is watching tv, call [place] within reach, will continue to monitor
--- NOTE | 2022-04-09 19:07 | PC.NURSE ---
Addendum entered by Alma Ramsay RN 04/10/22 07:03: report given to AARTI Schmitt Addendum entered by Alma Ramsay RN 04/09/22 19:50: pt is alert and oriented to self resting in bed, denies any dizziness pt on continuos cardiac monitoring Original Note: report received from AARTI Foster
[2022-04-09] MEDS: ondansetron HCL 4 MG/2 ML VIAL IVPUSH (19:37)
--- NOTE | 2022-04-09 19:42 | PC.NURSE ---
pt requested medication for nausea, verbal order obtained from midlevel, pt medicated with IVP zofran, vitals obtained, pt continues to be hypotensive- provider notified, pts faith continues to be patient/draining, call [place] within reach, will continue to monitor
[2022-04-09] MEDS: Tamsulosin HCL 0.4 MG CAPSULE 0.8 MG PO (20:38)
[2022-04-09] MEDS: Sennosides 8.6 MG TABLET 17.2 MG PO (20:39)
[2022-04-09] MEDS: Nystatin Powder 15 GM BOTTLE 1 APPL TOPICAL (20:40)
--- NOTE | 2022-04-09 20:43 | MHC.CM.PN ---
Addendum entered by Flor Guadalupe 04/09/22 20:51: Unable to review IMM, as there is no contact information for new guardian and patient is not capable. Original Note: Pt being admitted. Hypotensive. Diagnosed with FLU A on 04/07. Hospitalist requesting information regarding patient, guardianship and future plans. Explained that [facility] [place], as patient was deemed incapable by psychiatry. Guardian/Conservator Janusz Whalen was appointed by the court on 04/07. Pt did participate in court proceedings virually. CM awaiting court documents. No contact information on guardian. CM administrative team aware of pending admission. CM to follow for discharge planning. Pt will need MH application by guardian/conservator and then placement can be pursued.
[2022-04-09] MEDS: cefTRIAXone sodium 1 GM in 0.9 % Sodium Chloride 50 ML IV (22:03)
[2022-04-10] VITALS (13 sets, daily range): BP systolic 77–160; BP diastolic 36–71; PULSE 52–64; RESP 13–20; TEMP 36–36.6; O2SAT 94–97
[2022-04-10 01:25] LABS: Alanine Aminotransferase 24 U/L (0-40); Albumin Level 3.2 g/dL (3.5-5.0); Alkaline Phosphatase 78 U/L (39-117); Anion Gap 14 (12-20); Aspartate Amino Transferase 29 U/L (5-37); Bilirubin Total 0.3 mg/dL (0.0-1.0); Blood Urea Nitrogen 53 mg/dL (9-16); Calcium 7.9 mg/dL (8.4-10.2); Carbon Dioxide 22 mmol/L (22-29); Chloride 112 mmol/L (96-108); Creatinine Clr Calc Pharmacy 27.5; Estimated Glomerular Filt Rate 30; Glucose Random 119 mg/dL (60-115); Potassium 4.5 mmol/L (3.3-5.1); Sodium 143 mmol/L (135-145)
[2022-04-10] MEDS: Heparin Sodium,Porcine 5,000 UNIT/ML VIAL 5000 UNIT SUBCUT (03:27)
[2022-04-10] MEDS: Acetaminophen 325 MG TABLET 650 MG PO ×3 (03:27→22:26)
[2022-04-10] MEDS: Lactated Ringers 500 ML 999 ML IV (03:28)
[2022-04-10 04:53] LABS: MANUAL DIFF FLAG NO
[2022-04-10 04:55] LABS: Basophils Percent Auto 0.7 % (0-2); Eosinophils Absolute Auto 0.7 X10*3/uL (0.0-0.4); Eosinophils Percent Auto 11.9 % (0-4); Hematocrit 33.1 % (42.0-52.0); Hemoglobin 10.2 g/dl (14.0-18.0); Imm Gran Abs Auto 0.01 X10*3/uL (0.00-0.03); Imm Gran Pct Auto 0.2 % (0.0-0.4); Lymphocytes Absolute Auto 1.5 X10*3/uL (1.2-4.9); Lymphocytes Percent Auto 24.4 % (20-40); Mean Corpuscular HGB Conc 30.8 g/dl (31.0-36.0); Mean Corpuscular Hemoglobin 27.3 pg (27.0-33.0); Mean Corpuscular Volume 88.7 fL (80.0-98.0); Monocytes Absolute Auto 0.6 X10*3/uL (0.1-1.2); Monocytes Percent Auto 10.4 % (2-11); Neutrophils Absolute Auto 3.2 x10*3/uL (2.0-8.3); Neutrophils Percent Auto 52.4 % (45-73); Platelet Count 178 X10*3/uL (160-400); Red Blood Count 3.73 X10*6/uL (4.60-5.80); Red Cell Distribution Width 16.2 % (11.0-16.0); White Blood Count 6.2 X10*3/uL (4.8-10.8)
[2022-04-10 05:14] LABS: Anion Gap 14 (12-20); Blood Urea Nitrogen 51 mg/dL (9-16); Carbon Dioxide 22 mmol/L (22-29); Chloride 111 mmol/L (96-108); Creatinine Clr Calc Pharmacy 29.4; Estimated Glomerular Filt Rate 33; Glucose Random 102 mg/dL (60-115); Potassium 4.6 mmol/L (3.3-5.1); Sodium 142 mmol/L (135-145)
[2022-04-10 05:17] LABS: B Type Natriuretic Peptide 17 pg/mL (<100)
--- NOTE | 2022-04-10 06:36 | PM.IMHP ---
History of Present Illness Date of Service: 04/10/22 Chief Complaint: hypotension This is an 81-year-old male with past medical history of vascular dementia, hypertension, hyperlipidemia, hypothyroidism, initially presented to the hospital 03/18 and is currently being managed under physician's observation in the ED awaiting placement to intermediate developed hypotension and hypoxia in the ED. patient is alert, oriented to self but not to details. Reports no chest pain, no trouble breathing, no abdominal pain , no nausea or vomiting, no diarrhea constipation, no urinary symptoms and no lower extremity edema or pain. On review of vitals it appears the patient started developing slight hypotension on the a.m. of 1222, was also documented to be hypoxic at 85% on room air Patient is currently on 5 L of nasal can satting 94% Labs are also found to be significant for WBC count of 6.2, hemoglobin of 10.2, hematocrit 33.1, sodium of 139, creatinine of 1.84 which is slightly elevated than his baseline of 1.6 earlier in this month, UA positive for leukocyte Estrace and WBC Patient's chest x-ray shows bibasilar atelectasis, abdominal pelvic CT shows severe constipation, likely stercoral colitis, there is also suggestion of bladder wall thickening and stranding of the perivascular fat Patient started on antibiotics and IV fluids will be admitted for further management Review of Systems Review of Systems: Yes all other systems are reviewed and are negative PMFSH Medical History Acidosis, lactic Dementia Encounter for assessment of decision-making capacity Gram-negative bacteremia Hematuria Leukocytosis Social History Household Members: None Housing: [facility] Housing Other:: states lives at home Do you presently have visiting nurse or other home services: No Alcohol intake: former Patient Tobacco Use Status: Never used Tobacco Smoked in Last 30 Days: No Use of substances other than those prescribed or required for medical reasons: No Advance Directives: No Meds Allergies Allergy/AdvReac Type Severity Reaction Status Date / Time [id number] Reductase Allergy Unknown MUSCLE Verified 03/29/22 14:41 Inhibitor ACHES [[id number] REDUCTASE INHIBITOR] clopidogrel Allergy Unknown Verified 09/26/21 04:32 codeine Allergy Unknown Verified 09/26/21 04:32 Active Medications: Current Medications Acetaminophen (Acetaminophen 325 Mg Tablet) 650 mg PO Q6H [facility] Last Admin: 04/10/22 03:27 Dose: 650 mg Amlodipine Besylate (Amlodipine Besylate 5 Mg Tablet) 5 mg PO DAILY [facility]; Protocol Last Admin: 04/09/22 10:05 Dose: 5 mg Aspirin (Aspirin Enteric Coated 81 Mg Tablet.Dr) 81 mg PO DAILY [facility] Last Admin: 04/09/22 10:04 Dose: 81 mg Docusate Sodium (Docusate Sodium 100 Mg Capsule) 100 mg PO DAILY PRN PRN Reason: Constipation Heparin Sodium (Porcine) (Heparin Sodium,Porcine 5,000 Unit/Ml Vial) 5,000 unit SUBCUT Q12H [facility] Last Admin: 04/10/22 03:27 Dose: 5,000 unit Hydrochlorothiazide (Hydrochlorothiazide 12.5 Mg Tablet) 12.5 mg PO DAILY [facility]; Protocol Last Admin: 04/09/22 10:04 Dose: 12.5 mg Ceftriaxone Sodium 1 gm/ (Sodium Chloride) 50 mls @ 100 mls/hr IV Q24H [facility] Isosorbide Mononitrate (Isosorbide Mononitrate 30 Mg Tab.Er.24h) 30 mg PO DAILY [facility]; Protocol Last Admin: 04/09/22 10:04 Dose: 30 mg Levothyroxine Sodium (Levothyroxine Sodium 50 Mcg Tablet) 50 mcg PO DAILY@0600 [facility] Last Admin: 04/09/22 06:25 Dose: 50 mcg Lisinopril (Lisinopril 20 Mg Tablet) 20 mg PO DAILY [facility]; Protocol Last Admin: 04/09/22 10:05 Dose: 20 mg Nystatin (Nystatin Powder 15 Gm Bottle) 1 appl TOPICAL BID [facility]; Protocol Stop: 04/14/22 08:59 Last Admin: 04/09/22 20:40 Dose: 1 appl Ondansetron HCl (Ondansetron Hcl 4 Mg/2 Ml Vial) 4 mg IVPUSH Q8H PRN PRN Reason: Nausea and Vomiting Oseltamivir Phosphate (Oseltamivir Phosphate 30 Mg Capsule) 30 mg PO BID [facility] Stop: 04/11/22 21:01 Last Admin: 04/09/22 20:39 Dose: 30 mg Pharmacy Consult (Consult Rx Perform Med Rec) 1 each MISCELLANE ONCE PRN PRN Reason: Consult order Polyethylene Glycol (Polyethylene Glycol 3350 17 Gm Powd.Pack) 17 gm PO DAILY PRN PRN Reason: constipation Senna (Sennosides 8.6 Mg Tablet) 17.2 mg PO BEDTIME [facility] Last Admin: 04/09/22 20:39 Dose: 17.2 mg Sertraline HCl (Sertraline Hcl 100 Mg Tablet) 100 mg PO DAILY [facility] Last Admin: 04/09/22 10:04 Dose: 100 mg Sodium Chloride (0.9 % Sodium Chloride Flush 3 Ml Syringe) 3 ml IVFLUSH [facility] Tamsulosin HCl (Tamsulosin Hcl 0.4 Mg Capsule) 0.8 mg PO BEDTIME [facility] Last Admin: 04/09/22 20:38 Dose: 0.8 mg Home Medications Medication Instructions Recorded Confirmed Last Taken Type aspirin 81 mg tablet,delayed 81 mg PO DAILY 09/26/21 03/19/22 2 Days Ago History release ~03/17/22 atorvastatin 80 mg tablet 80 mg PO DAILY 09/26/21 03/19/22 2 Days Ago History ~03/17/22 isosorbide mononitrate 30 mg 30 mg PO DAILY 09/26/21 03/19/22 2 Days Ago History tablet,extended release 24 hr ~03/17/22 levothyroxine 50 mcg tablet 50 mcg PO DAILY 09/26/21 03/19/22 2 Days Ago History ~03/17/22 sennosides 8.6 mg tablet (senna) 17.2 mg PO BEDTIME 09/26/21 03/19/22 2 Days Ago History ~03/17/22 sertraline 100 mg tablet 100 mg PO DAILY 09/26/21 03/19/22 2 Days Ago History ~03/17/22 tamsulosin 0.4 mg capsule (Flomax) 0.8 mg PO BEDTIME 09/26/21 03/19/22 2 Days Ago History ~03/17/22 amlodipine 5 mg tablet 1 tab PO DAILY 03/19/22 03/19/22 2 Days Ago History ~03/17/22 hydrochlorothiazide 12.5 mg tablet 1 tab PO DAILY 03/19/22 03/19/22 2 Days Ago History ~03/17/22 lisinopril 20 mg tablet 1 tab PO DAILY 03/19/22 03/19/22 2 Days Ago History ~03/17/22 Physical Exam Vital Signs and Narrative: Vital Signs: Last Vital Signs Temp 97.9 F 04/10/22 05:58 Pulse 64 04/10/22 05:58 Resp 18 04/10/22 05:58 BP 103/51 L 04/10/22 05:58 Pulse Ox 95 04/10/22 05:58 O2 Del Method 04/10/22 05:58 O2 Flow Rate 5 04/10/22 02:58 BMI result Body Mass Index 23.6 Const: Other: Oriented to self and place General: cooperative and no acute distress Eyes: General: appearance normal, both eyes and all related structures Resp: Effort & Inspection: normal respiratory effort Auscultation: clear to auscultation bilaterally Cardio: Rate: regular rate Rhythm: regular rhythm GI: Palpation (GI): Soft to palpation Auscultation: normal bowel sounds Skin: General skin exam: no rashes or lesions noted Neuro: Cognition (Neuro): normal cognition Extrem: General: Yes normal to inspection and Yes no pedal edema Results Labs CBC and Chem 7: 04/10/22 04:10 04/10/22 04:10 Labs: Laboratory Results - last 24 hr 04/09/22 04/09/22 04/09/22 10:08 14:16 22:04 MCV MCH MCHC RDW Plt Count MPV Immature Gran % (Auto) Neut % (Auto) Lymph % (Auto) [place] % (Auto) Eos % (Auto) Baso % (Auto) Lymph # (Auto) [place] # (Auto) Eos # (Auto) Baso # (Auto) Abs Immat Gran (auto) Absolute Neuts (auto) Absolute Nucleated RBC Nucleated RBC % (auto) Anion Gap 13 Estim Creat Clear Calc 31.4 Estimated GFR 35 Random Glucose 107 Lactic Acid 1.0 Calcium 8.2 L D Total Bilirubin 0.3 AST 23 ALT 21 Alkaline Phosphatase 85 B-Natriuretic Peptide Total Protein 6.5 Albumin 3.5 Urine Color Yellow Urine Appearance Clear Urine pH 5.5 Ur Specific [place] 1.020 Urine Protein 30 (1+) H Urine Glucose (UA) Negative Urine Ketones Negative Urine Blood Moderate (2+) H Urine Nitrite Negative Ur Leukocyte Esterase Small (1+) H Urine RBC >20 H Urine WBC 0-5 Ur Squamous Epith Cells 0-2 Urine Bacteria None Seen Hyaline Casts 0-2 04/10/22 04/10/22 04/10/22 00:57 04:10 04:10 MCV 88.7 MCH 27.3 MCHC 30.8 L RDW 16.2 H Plt Count 178 D MPV 11.0 Immature Gran % (Auto) 0.2 Neut % (Auto) 52.4 Lymph % (Auto) 24.4 [place] % (Auto) 10.4 Eos % (Auto) 11.9 H Baso % (Auto) 0.7 Lymph # (Auto) 1.5 [place] # (Auto) 0.6 Eos # (Auto) 0.7 H Baso # (Auto) 0.0 Abs Immat Gran (auto) 0.01 Absolute Neuts (auto) 3.2 Absolute Nucleated RBC 0.000 Nucleated RBC % (auto) 0.0 Anion Gap 14 Estim Creat Clear Calc 27.5 Estimated GFR 30 Random Glucose 119 H Lactic Acid 1.0 Calcium 7.9 L Total Bilirubin 0.3 AST 29 ALT 24 Alkaline Phosphatase 78 B-Natriuretic Peptide Total Protein 6.0 L Albumin 3.2 L Urine Color Urine Appearance Urine pH Ur Specific [place] Urine Protein Urine Glucose (UA) Urine Ketones Urine Blood Urine Nitrite Ur Leukocyte Esterase Urine RBC Urine WBC Ur Squamous Epith Cells Urine Bacteria Hyaline Casts 04/10/22 04/10/22 04:10 04:10 MCV MCH MCHC RDW Plt Count MPV Immature Gran % (Auto) Neut % (Auto) Lymph % (Auto) [place] % (Auto) Eos % (Auto) Baso % (Auto) Lymph # (Auto) [place] # (Auto) Eos # (Auto) Baso # (Auto) Abs Immat Gran (auto) Absolute Neuts (auto) Absolute Nucleated RBC Nucleated RBC % (auto) Anion Gap 14 Estim Creat Clear Calc 29.4 Estimated GFR 33 Random Glucose 102 Lactic Acid Calcium 8.0 L Total Bilirubin AST ALT Alkaline Phosphatase B-Natriuretic Peptide 17 Total Protein Albumin Urine Color Urine Appearance Urine pH Ur Specific [place] Urine Protein Urine Glucose (UA) Urine Ketones Urine Blood Urine Nitrite Ur Leukocyte Esterase Urine RBC Urine WBC Ur Squamous Epith Cells Urine Bacteria Hyaline Casts Imaging Radiologist's Impressions: Impressions Chest X-Ray 04/10/22 02:02 IMPRESSION: Low lung volumes with minimal bibasilar atelectasis. Assessment and Plan (1) Acute respiratory failure with hypoxia: Status: Acute (2) Hypertension: Status: Acute (3) UTI (urinary tract infection): Status: Acute (4) Acute kidney injury: Status: Acute (5) Vascular dementia: Status: Acute Plan 81-year-old male with past medical history of vascular dementia, hypertension, hypothyroidism who is currently being managed under physician observation in the ED develops hypertension and hypoxic respiratory failure # acute hypoxic respiratory failure - cannot rule out PE as patient has been waiting placement in the ED does not appear to have prophylactic anticoagulation - not a candidate for CT angiogram given his KUMAR - will treat him prophylactically with 1 dose of Lovenox, pending V/Q scan - continue oxygen as required - no evidence of pneumonia, no evidence of volume overload on chest x-ray, BNP normal # hypotension - possibly secondary to dehydration versus sepsis less likely - patient afebrile, has no leukocytosis, lactic acid normal - treated with IV fluids, with improvement in his BP - will hold antihypertensives - monitor blood pressure # UTI - will treat with IV antibiotics - follow cultures # KUMAR and CKD - likely secondary to dehydration - will treat with IV fluid - follow BMP # vascular dementia - cannot care for self - currently under [facility] - pending placement DVT prophylaxis: Lovenox Given patient's hypotension, hypoxia patient require minimum 2 night inpatient hospital stay for further management and monitoring Time Spent With Patient Time: Total time managing care of this patient today ____ minutes. Quality Stroke Does the patient have a stroke diagnosis?: No VTE Prior VTE?: No VTE Risk Level:: Medical - moderate - high VTE Device Contraindication: Treatment Not Indicated VTE Drug Contraindication: N/A - Med Ordered
[2022-04-10] MEDS: Levothyroxine Sodium 50 MCG TABLET PO (06:40)
[2022-04-10 07:20] LABS: Hematocrit 33.4 % (42.0-52.0); Hemoglobin 10.3 g/dl (14.0-18.0); Mean Corpuscular HGB Conc 30.8 g/dl (31.0-36.0); Mean Corpuscular Hemoglobin 26.7 pg (27.0-33.0); Mean Corpuscular Volume 86.5 fL (80.0-98.0); Mean Platelet Volume 10.5 fL (9.4-12.4); Platelet Count 172 X10*3/uL (160-400); Red Blood Count 3.86 X10*6/uL (4.60-5.80); Red Cell Distribution Width 16.1 % (11.0-16.0); White Blood Count 6.3 X10*3/uL (4.8-10.8)
[2022-04-10 07:29] LABS: INTERNATIONAL NORM RATIO 0.9 (0.9-1.1); Prothrombin Time 10.6 SEC (10.0-13.1)
[2022-04-10 07:31] LABS: Partial Thromboplastin Time 29.6 SEC (26.0-36.4)
[2022-04-10] MEDS: Sertraline HCL 100 MG TABLET PO (08:47)
[2022-04-10] MEDS: Enoxaparin Sodium 80 MG/0.8 ML SYRINGE 70 MG SUBCUT (08:47)
[2022-04-10] MEDS: Oseltamivir Phosphate 30 MG CAPSULE PO ×2 (08:47→20:40)
[2022-04-10] MEDS: Aspirin Enteric Coated 81 MG TABLET.DR PO (08:47)
[2022-04-10] MEDS: Nystatin Powder 15 GM BOTTLE 1 APPL TOPICAL ×2 (08:47→20:43)
[2022-04-10] MEDS: 0.9 % Sodium Chloride Flush 3 ML SYRINGE IVFLUSH ×3 (08:56→20:40)
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
--- NOTE | 2022-04-10 13:35 | MHC.CM.PN ---
Patient's guardian is Janusz Nobles. Will update her about admission and sent IMM via certified mail once contact information is provided by [facility]ERR[facility] Calabrese director. Continue to monitor for d/c needs.
[2022-04-10] MEDS: Tamsulosin HCL 0.4 MG CAPSULE 0.8 MG PO (20:40)
[2022-04-10] MEDS: Sennosides 8.6 MG TABLET 17.2 MG PO (20:40)
[2022-04-11 03:59] VITALS: BP 124/61; PULSE 50; RESP 17; TEMP 36.1; O2SAT 92
[2022-04-11] MEDS: Levothyroxine Sodium 50 MCG TABLET PO (06:20)
[2022-04-11 07:28] VITALS: BP 126/70; PULSE 63; RESP 17; TEMP 37.4; O2SAT 93
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
[2022-04-11] MEDS: Oseltamivir Phosphate 30 MG CAPSULE PO ×2 (09:54→19:32)
[2022-04-11] MEDS: Sertraline HCL 100 MG TABLET PO (09:59)
[2022-04-11] MEDS: Isosorbide Mononitrate 30 MG TAB.ER.24H PO (09:59)
[2022-04-11] MEDS: Aspirin Enteric Coated 81 MG TABLET.DR PO (09:59)
[2022-04-11] MEDS: Nystatin Powder 15 GM BOTTLE 1 APPL TOPICAL ×2 (10:00→19:33)
[2022-04-11] MEDS: 0.9 % Sodium Chloride Flush 3 ML SYRINGE IVFLUSH ×2 (10:00→19:32)
[2022-04-11 11:01] LABS: Hematocrit 40.6 % (42.0-52.0); Hemoglobin 12.7 g/dl (14.0-18.0); Mean Corpuscular HGB Conc 31.3 g/dl (31.0-36.0); Mean Corpuscular Hemoglobin 26.8 pg (27.0-33.0); Mean Corpuscular Volume 85.8 fL (80.0-98.0); Mean Platelet Volume 10.8 fL (9.4-12.4); Platelet Count 174 X10*3/uL (160-400); Red Blood Count 4.73 X10*6/uL (4.60-5.80); Red Cell Distribution Width 15.7 % (11.0-16.0); White Blood Count 5.3 X10*3/uL (4.8-10.8)
[2022-04-11 12:08] LABS: Anion Gap 14 (12-20); Blood Urea Nitrogen 36 mg/dL (9-16); Calcium 8.5 mg/dL (8.4-10.2); Carbon Dioxide 23 mmol/L (22-29); Chloride 109 mmol/L (96-108); Creatinine Clr Calc Pharmacy 41.8; Estimated Glomerular Filt Rate 49; Glucose Fasting 81 mg/dL (60-99); Potassium 4.7 mmol/L (3.3-5.1); Sodium 141 mmol/L (135-145)
[2022-04-11 16:00] VITALS: BP 130/68; PULSE 71; RESP 18; TEMP 37.1; O2SAT 95
[2022-04-11] MEDS: Sennosides 8.6 MG TABLET 17.2 MG PO (19:31)
[2022-04-11] MEDS: Acetaminophen 325 MG TABLET 650 MG PO (19:31)
[2022-04-11] MEDS: Tamsulosin HCL 0.4 MG CAPSULE 0.8 MG PO (19:31)
[2022-04-11 19:45] VITALS: BP 132/61; PULSE 82; RESP 20; TEMP 36.4; O2SAT 97
[2022-04-11] MEDS: oxyCODONE HCl Immed Release 5 MG TABLET PO (20:38)
[2022-04-12] MEDS: oxyCODONE HCl Immed Release 5 MG TABLET PO ×3 (00:02→15:04)
[2022-04-12 04:00] VITALS: BP 146/67; PULSE 46; RESP 18; TEMP 36.2; O2SAT 93
[2022-04-12] MEDS: Acetaminophen 325 MG TABLET 650 MG PO ×4 (04:56→21:44)
[2022-04-12] MEDS: Levothyroxine Sodium 50 MCG TABLET PO (04:56)
[2022-04-12 07:50] VITALS: BP 147/68; PULSE 51; RESP 18; TEMP 36; O2SAT 94
[2022-04-12] MEDS: Aspirin Enteric Coated 81 MG TABLET.DR PO (09:03)
[2022-04-12] MEDS: Sertraline HCL 100 MG TABLET PO (09:03)
[2022-04-12] MEDS: Nystatin Powder 15 GM BOTTLE 1 APPL TOPICAL ×2 (09:04→21:46)
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
[2022-04-12] MEDS: Morphine Sulfate 2 MG/ML CARTRIDGE IVPUSH (12:34)
[2022-04-12 15:50] VITALS: BP 142/59; PULSE 71; RESP 20; TEMP 36.3; O2SAT 96
--- NOTE | 2022-04-12 17:05 | PC.NURSE ---
discoloration noted on pt's coccyx area. pt was c/o pain in his penis but was unable to give more details to his pain. MD was informed and pain meds were administered w/ minimal effect. pt was then bladder scanned and noted to have >470ml on the scanner and was leaking around the faith. MD was informed and faith was changed. When new faith was placed moderate amount of blood was drained followed by clear yellow urine totaling 1L of urine. The pt stated he see's a urologist outside of the hospital. MD was informed.
[2022-04-12 19:40] VITALS: BP 140/72; PULSE 73; RESP 18; TEMP 36.6; O2SAT 98
[2022-04-12] MEDS: Tamsulosin HCL 0.4 MG CAPSULE 0.8 MG PO (21:44)
[2022-04-12] MEDS: Sennosides 8.6 MG TABLET 17.2 MG PO (21:44)
--- NOTE | 2022-04-12 22:18 | PC.NURSE ---
while BOSS DYER was giving hygiene care Faith came out,there was no baloon inflated,#16 faith reinserted,patient tolerated it well,draining blood tinged urine
[2022-04-13] MEDS: 0.9 % Sodium Chloride Flush 3 ML SYRINGE IVFLUSH ×2 (00:15→20:46)
[2022-04-13] MEDS: oxyCODONE HCl Immed Release 5 MG TABLET PO ×2 (00:19→09:05)
[2022-04-13 04:00] VITALS: BP 149/70; PULSE 51; RESP 18; TEMP 36.5; O2SAT 97
[2022-04-13] MEDS: Acetaminophen 325 MG TABLET 650 MG PO ×3 (05:18→20:46)
[2022-04-13] MEDS: Levothyroxine Sodium 50 MCG TABLET PO (05:18)
[2022-04-13 07:00] VITALS: BP 160/72; PULSE 52; RESP 18; TEMP 36.8; O2SAT 98
[2022-04-13] MEDS: Aspirin Enteric Coated 81 MG TABLET.DR PO (09:05)
[2022-04-13] MEDS: Sertraline HCL 100 MG TABLET PO (09:05)
[2022-04-13] MEDS: Docusate Sodium 100 MG CAPSULE PO (09:06)
[2022-04-13] MEDS: Nystatin Powder 15 GM BOTTLE 1 APPL TOPICAL ×2 (09:07→20:47)
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
[2022-04-13 14:14] VITALS: BP 130/60; PULSE 52; RESP 18; TEMP 36.6; O2SAT 97
[2022-04-13 15:36] VITALS: BP 129/61; PULSE 53; RESP 16; TEMP 36.5; O2SAT 94
[2022-04-13 19:34] VITALS: BP 126/59; PULSE 57; RESP 18; TEMP 36.6; O2SAT 94
[2022-04-13] MEDS: Tamsulosin HCL 0.4 MG CAPSULE 0.8 MG PO (20:45)
[2022-04-13] MEDS: Sennosides 8.6 MG TABLET 17.2 MG PO (20:45)
[2022-04-14 04:00] VITALS: BP 148/68; PULSE 63; RESP 18; TEMP 36.4; O2SAT 93
[2022-04-14] MEDS: Acetaminophen 325 MG TABLET 650 MG PO ×3 (05:02→20:33)
[2022-04-14] MEDS: Levothyroxine Sodium 50 MCG TABLET PO (05:02)
[2022-04-14 07:06] VITALS: BP 170/82; PULSE 48; RESP 18; TEMP 36.9; O2SAT 98
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
[2022-04-14] MEDS: Aspirin Enteric Coated 81 MG TABLET.DR PO (09:04)
[2022-04-14] MEDS: Sertraline HCL 100 MG TABLET PO (09:04)
[2022-04-14] MEDS: amLODIPine Besylate 5 MG TABLET PO (09:04)
[2022-04-14] MEDS: 0.9 % Sodium Chloride Flush 3 ML SYRINGE IVFLUSH ×3 (09:05→23:03)
[2022-04-14 10:50] VITALS: BP 172/74; PULSE 96; RESP 18; TEMP 36.6
[2022-04-14 15:08] VITALS: BP 129/67; PULSE 63; RESP 18; TEMP 36.8; O2SAT 95
[2022-04-14 19:37] VITALS: BP 163/77; PULSE 54; RESP 18; TEMP 36.9; O2SAT 96
[2022-04-14] MEDS: Tamsulosin HCL 0.4 MG CAPSULE 0.8 MG PO (20:32)
[2022-04-14] MEDS: Sennosides 8.6 MG TABLET 17.2 MG PO (20:33)
[2022-04-14 21:00] VITALS: BP 146/66; PULSE 60
[2022-04-15 03:51] VITALS: BP 182/89; PULSE 64; RESP 18; TEMP 36.6; O2SAT 98
[2022-04-15 04:03] VITALS: BP 168/76
[2022-04-15] MEDS: Acetaminophen 325 MG TABLET 650 MG PO ×3 (04:13→19:41)
[2022-04-15] MEDS: Levothyroxine Sodium 50 MCG TABLET PO (04:13)
[2022-04-15] MEDS: oxyCODONE HCl Immed Release 5 MG TABLET PO (04:14)
[2022-04-15 06:58] VITALS: BP 131/64; PULSE 63; RESP 19; TEMP 36.6; O2SAT 96
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
[2022-04-15] MEDS: 0.9 % Sodium Chloride Flush 3 ML SYRINGE IVFLUSH ×3 (08:47→19:42)
[2022-04-15] MEDS: Sertraline HCL 100 MG TABLET PO (08:48)
[2022-04-15] MEDS: Aspirin Enteric Coated 81 MG TABLET.DR PO (08:48)
[2022-04-15] MEDS: amLODIPine Besylate 5 MG TABLET PO (08:48)
--- NOTE | 2022-04-15 14:16 | MHC.CM.PN ---
per rounds pt ready for dc pending abran approval
[2022-04-15 15:58] VITALS: BP 166/74; PULSE 66; RESP 20; TEMP 36.3; O2SAT 96
[2022-04-15 19:30] VITALS: PULSE 70; RESP 20; TEMP 36.4; O2SAT 97
[2022-04-15] MEDS: Tamsulosin HCL 0.4 MG CAPSULE 0.8 MG PO (19:41)
[2022-04-15] MEDS: Sennosides 8.6 MG TABLET 17.2 MG PO (19:41)
[2022-04-16] MEDS: traZODone HCL 50 MG TABLET PO (01:49)
[2022-04-16 04:00] VITALS: BP 150/65; PULSE 75; RESP 17; TEMP 36.5; O2SAT 95
[2022-04-16] MEDS: diphenhydrAMINE HCL 50 MG/ML VIAL 25 MG IVPUSH ×2 (04:56→21:29)
[2022-04-16] MEDS: Levothyroxine Sodium 50 MCG TABLET PO (04:57)
[2022-04-16 07:39] VITALS: BP 160/80; PULSE 57; RESP 18; TEMP 36.3; O2SAT 97
[2022-04-16] MEDS: amLODIPine Besylate 5 MG TABLET PO (10:36)
[2022-04-16] MEDS: Sertraline HCL 100 MG TABLET PO (10:36)
[2022-04-16] MEDS: Aspirin Enteric Coated 81 MG TABLET.DR PO (10:36)
[2022-04-16] MEDS: Acetaminophen 325 MG TABLET 650 MG PO ×2 (10:36→20:21)
[2022-04-16] MEDS: 0.9 % Sodium Chloride Flush 3 ML SYRINGE IVFLUSH ×3 (10:38→20:21)
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
[2022-04-16 15:11] VITALS: BP 142/64; PULSE 73; RESP 20; TEMP 36.9; O2SAT 94
[2022-04-16 19:29] VITALS: BP 148/76; PULSE 59; RESP 18; TEMP 36.8; O2SAT 93
[2022-04-16] MEDS: Tamsulosin HCL 0.4 MG CAPSULE 0.8 MG PO (20:21)
[2022-04-16] MEDS: Sennosides 8.6 MG TABLET 17.2 MG PO (20:21)
[2022-04-17 04:00] VITALS: BP 164/72; PULSE 67; RESP 18; TEMP 36.6; O2SAT 98
[2022-04-17] MEDS: Levothyroxine Sodium 50 MCG TABLET PO (05:52)
[2022-04-17 07:38] VITALS: BP 189/79; PULSE 60; RESP 18; TEMP 36.4; O2SAT 97
[2022-04-17 10:16] VITALS: BP 150/76; PULSE 77; RESP 16
[2022-04-17] MEDS: Sertraline HCL 100 MG TABLET PO (10:18)
[2022-04-17] MEDS: Aspirin Enteric Coated 81 MG TABLET.DR PO (10:18)
[2022-04-17] MEDS: Acetaminophen 325 MG TABLET 650 MG PO ×2 (10:18→16:19)
[2022-04-17] MEDS: amLODIPine Besylate 5 MG TABLET PO (10:18)
[2022-04-17] MEDS: 0.9 % Sodium Chloride Flush 3 ML SYRINGE IVFLUSH ×3 (10:19→21:22)
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
[2022-04-17 15:22] VITALS: BP 138/72; PULSE 67; RESP 17; TEMP 36.8; O2SAT 95
[2022-04-17 19:33] VITALS: BP 131/65; PULSE 64; RESP 19; TEMP 36.9; O2SAT 97
[2022-04-17] MEDS: Sennosides 8.6 MG TABLET 17.2 MG PO (21:21)
[2022-04-17] MEDS: Tamsulosin HCL 0.4 MG CAPSULE 0.8 MG PO (21:21)
[2022-04-18] MEDS: traZODone HCL 50 MG TABLET PO (01:46)
[2022-04-18 02:57] VITALS: BP 176/79; PULSE 62; RESP 18; TEMP 36.4; O2SAT 96
[2022-04-18] MEDS: Levothyroxine Sodium 50 MCG TABLET PO (06:35)
[2022-04-18 07:01] VITALS: BP 136/89; PULSE 70; RESP 20; TEMP 36.6; O2SAT 99
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
[2022-04-18] MEDS: amLODIPine Besylate 5 MG TABLET PO (09:51)
[2022-04-18] MEDS: Aspirin Enteric Coated 81 MG TABLET.DR PO (09:51)
[2022-04-18] MEDS: Sertraline HCL 100 MG TABLET PO (09:51)
[2022-04-18] MEDS: Acetaminophen 325 MG TABLET 650 MG PO (09:51)
[2022-04-18] MEDS: 0.9 % Sodium Chloride Flush 3 ML SYRINGE IVFLUSH ×2 (09:52→20:25)
--- NOTE | 2022-04-18 11:17 | PC.NURSE ---
pt IV access was out of date- inserted on 03/25/22. DR. Danielle notified. per dr. Danielle pt can remain without IV access for now. IV access removed, intact 04/18/22. pt tolerated well.
[2022-04-18 15:00] VITALS: BP 147/70; PULSE 60; RESP 16; TEMP 36.8; O2SAT 96
[2022-04-18 20:06] VITALS: BP 140/69; PULSE 70; RESP 18; TEMP 36.9; O2SAT 94
[2022-04-18] MEDS: Tamsulosin HCL 0.4 MG CAPSULE 0.8 MG PO (20:25)
[2022-04-18] MEDS: Sennosides 8.6 MG TABLET 17.2 MG PO (20:25)
--- NOTE | 2022-04-18 23:41 | PM.EVENT ---
Event Note Date of Service: 04/18/22 Event Note: Received mssg that Pt faith cath got caught and pulled while transfering. Pt now has hematuria. Faith was pushed back and reinflated. WIll do frequent flushing, if not resolving will order CBI, rpt H&H in am Time Spent With Patient Time: Total time managing care of this patient today ____ minutes.
[2022-04-19 04:00] VITALS: BP 160/78; PULSE 70; RESP 19; TEMP 36.6; O2SAT 98
[2022-04-19] MEDS: Levothyroxine Sodium 50 MCG TABLET PO (06:06)
[2022-04-19 06:48] LABS: MANUAL DIFF FLAG NO
[2022-04-19 07:06] VITALS: BP 158/77; PULSE 65; RESP 18; TEMP 36.1; O2SAT 97
[2022-04-19 07:17] LABS: Basophils Absolute Auto 0.1 X10*3/uL (0.0-0.2); Basophils Percent Auto 0.8 % (0-2); Eosinophils Absolute Auto 0.9 X10*3/uL (0.0-0.4); Eosinophils Percent Auto 9.8 % (0-4); Hematocrit 37.6 % (42.0-52.0); Hemoglobin 12.2 g/dl (14.0-18.0); Imm Gran Abs Auto 0.03 X10*3/uL (0.00-0.03); Imm Gran Pct Auto 0.3 % (0.0-0.4); Lymphocytes Absolute Auto 1.9 X10*3/uL (1.2-4.9); Lymphocytes Percent Auto 21.9 % (20-40); Mean Corpuscular HGB Conc 32.4 g/dl (31.0-36.0); Mean Corpuscular Hemoglobin 27.1 pg (27.0-33.0); Mean Corpuscular Volume 83.6 fL (80.0-98.0); Mean Platelet Volume 10.3 fL (9.4-12.4); Monocytes Absolute Auto 0.9 X10*3/uL (0.1-1.2); Monocytes Percent Auto 9.9 % (2-11); Neutrophils Percent Auto 57.3 % (45-73); Platelet Count 219 X10*3/uL (160-400); Red Cell Distribution Width 15.2 % (11.0-16.0); White Blood Count 8.8 X10*3/uL (4.8-10.8)
[2022-04-19] MEDS: Sertraline HCL 100 MG TABLET PO (08:11)
[2022-04-19] MEDS: amLODIPine Besylate 5 MG TABLET PO (08:11)
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
[2022-04-19] MEDS: Isosorbide Mononitrate 30 MG TAB.ER.24H PO (12:40)
[2022-04-19 14:54] VITALS: BP 145/68; PULSE 68; RESP 18; TEMP 36.7; O2SAT 95
[2022-04-19] MEDS: 0.9 % Sodium Chloride Flush 3 ML SYRINGE IVFLUSH ×2 (15:28→22:52)
[2022-04-19] MEDS: Acetaminophen 325 MG TABLET 650 MG PO ×2 (15:28→22:52)
[2022-04-19 19:13] VITALS: BP 161/64; PULSE 57; RESP 18; TEMP 36.8; O2SAT 96
[2022-04-19] MEDS: Sennosides 8.6 MG TABLET 17.2 MG PO (22:51)
[2022-04-19] MEDS: Tamsulosin HCL 0.4 MG CAPSULE 0.8 MG PO (22:51)
[2022-04-20 03:42] VITALS: BP 148/78; PULSE 65; RESP 18; TEMP 36.3; O2SAT 95
[2022-04-20] MEDS: Levothyroxine Sodium 50 MCG TABLET PO (06:05)
[2022-04-20 07:55] VITALS: BP 165/87; PULSE 63; RESP 19; TEMP 37; O2SAT 95
[2022-04-20] MEDS: Isosorbide Mononitrate 30 MG TAB.ER.24H PO (09:46)
[2022-04-20] MEDS: Aspirin Enteric Coated 81 MG TABLET.DR PO (09:46)
[2022-04-20] MEDS: Acetaminophen 325 MG TABLET 650 MG PO ×2 (09:47→15:48)
[2022-04-20] MEDS: Sertraline HCL 100 MG TABLET PO (09:47)
[2022-04-20] MEDS: amLODIPine Besylate 5 MG TABLET PO (09:47)
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
[2022-04-20] MEDS: 0.9 % Sodium Chloride Flush 3 ML SYRINGE IVFLUSH ×3 (09:48→22:01)
[2022-04-20 15:17] VITALS: BP 138/65; PULSE 85; RESP 20; TEMP 37; O2SAT 95
[2022-04-20 18:43] VITALS: BP 120/80; PULSE 60; RESP 20; TEMP 37.2; O2SAT 95
[2022-04-20] MEDS: Sennosides 8.6 MG TABLET 17.2 MG PO (22:00)
[2022-04-20] MEDS: Tamsulosin HCL 0.4 MG CAPSULE 0.8 MG PO (22:00)
[2022-04-21 04:00] VITALS: BP 158/72; PULSE 60; RESP 16; TEMP 36.6; O2SAT 95
[2022-04-21] MEDS: Levothyroxine Sodium 50 MCG TABLET PO (05:36)
[2022-04-21 08:00] VITALS: BP 180/58; PULSE 72; RESP 17; TEMP 36.6; O2SAT 96
[2022-04-21] MEDS: Isosorbide Mononitrate 30 MG TAB.ER.24H PO (09:39)
[2022-04-21] MEDS: Acetaminophen 325 MG TABLET 650 MG PO ×3 (09:39→22:09)
[2022-04-21] MEDS: amLODIPine Besylate 5 MG TABLET PO (09:39)
[2022-04-21] MEDS: Aspirin Enteric Coated 81 MG TABLET.DR PO (09:39)
[2022-04-21] MEDS: Sertraline HCL 100 MG TABLET PO (09:40)
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
[2022-04-21 16:00] VITALS: BP 150/58; PULSE 73; RESP 20; TEMP 36.7; O2SAT 93
[2022-04-21 19:32] VITALS: BP 124/59; PULSE 73; RESP 18; TEMP 37.2; O2SAT 93
[2022-04-21] MEDS: Sennosides 8.6 MG TABLET 17.2 MG PO (22:09)
[2022-04-21] MEDS: Tamsulosin HCL 0.4 MG CAPSULE 0.8 MG PO (22:10)
[2022-04-22 03:45] VITALS: BP 146/72; PULSE 62; RESP 19; TEMP 36.8; O2SAT 94
[2022-04-22] MEDS: Levothyroxine Sodium 50 MCG TABLET PO (05:09)
[2022-04-22 08:00] VITALS: BP 168/82; PULSE 64; RESP 18; TEMP 36.3; O2SAT 94
[2022-04-22] MEDS: Aspirin Enteric Coated 81 MG TABLET.DR PO (10:38)
[2022-04-22] MEDS: Isosorbide Mononitrate 30 MG TAB.ER.24H PO (10:38)
[2022-04-22] MEDS: amLODIPine Besylate 5 MG TABLET PO (10:38)
[2022-04-22] MEDS: Acetaminophen 325 MG TABLET 650 MG PO ×2 (10:38→16:05)
[2022-04-22] MEDS: Sertraline HCL 100 MG TABLET PO (10:38)
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
[2022-04-22 11:32] LABS: Hemoglobin 11.2 g/dl (14.0-18.0); Mean Corpuscular HGB Conc 32.9 g/dl (31.0-36.0); Mean Corpuscular Hemoglobin 27.6 pg (27.0-33.0); Mean Corpuscular Volume 83.7 fL (80.0-98.0); Platelet Count 213 X10*3/uL (160-400); Red Blood Count 4.06 X10*6/uL (4.60-5.80)
[2022-04-22 11:49] LABS: Anion Gap 11 (12-20); Blood Urea Nitrogen 26 mg/dL (9-16); Calcium 8.9 mg/dL (8.4-10.2); Carbon Dioxide 25 mmol/L (22-29); Chloride 108 mmol/L (96-108); Creatinine Clr Calc Pharmacy 43.1; Estimated Glomerular Filt Rate 51; Glucose Random 121 mg/dL (60-115); Sodium 140 mmol/L (135-145)
[2022-04-22 15:29] VITALS: BP 166/74; PULSE 61; RESP 17; TEMP 36.5; O2SAT 93
[2022-04-22 19:19] VITALS: BP 150/69; PULSE 67; RESP 18; TEMP 36.7; O2SAT 94
[2022-04-22] MEDS: Tamsulosin HCL 0.4 MG CAPSULE 0.8 MG PO (20:18)
[2022-04-22] MEDS: Sennosides 8.6 MG TABLET 17.2 MG PO (20:18)
[2022-04-23 03:17] VITALS: BP 152/80; PULSE 58; RESP 18; TEMP 36.9; O2SAT 97
[2022-04-23] MEDS: Levothyroxine Sodium 50 MCG TABLET PO (05:54)
[2022-04-23 08:40] VITALS: BP 162/78; PULSE 84; RESP 18; TEMP 36.3; O2SAT 96
[2022-04-23] MEDS: Aspirin Enteric Coated 81 MG TABLET.DR PO (09:22)
[2022-04-23] MEDS: Acetaminophen 325 MG TABLET 650 MG PO ×3 (09:22→22:12)
[2022-04-23] MEDS: Isosorbide Mononitrate 30 MG TAB.ER.24H PO (09:22)
[2022-04-23] MEDS: amLODIPine Besylate 5 MG TABLET PO (09:22)
[2022-04-23] MEDS: Sertraline HCL 100 MG TABLET PO (09:22)
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
[2022-04-23 15:18] VITALS: BP 118/56; PULSE 67; RESP 18; TEMP 36.7; O2SAT 95
[2022-04-23] MEDS: Tamsulosin HCL 0.4 MG CAPSULE 0.8 MG PO (19:11)
[2022-04-23] MEDS: Sennosides 8.6 MG TABLET 17.2 MG PO (19:12)
[2022-04-23] MEDS: 0.9 % Sodium Chloride Flush 3 ML SYRINGE IVFLUSH (19:12)
[2022-04-23 19:20] VITALS: BP 132/61; PULSE 70; RESP 18; TEMP 36.8; O2SAT 95
[2022-04-24 03:43] VITALS: BP 170/80; PULSE 63; RESP 18; TEMP 36.9; O2SAT 97
[2022-04-24] MEDS: Levothyroxine Sodium 50 MCG TABLET PO (05:22)
[2022-04-24] MEDS: Acetaminophen 325 MG TABLET 650 MG PO ×4 (05:22→21:40)
[2022-04-24 08:00] VITALS: BP 175/80; PULSE 66; RESP 18; TEMP 36.5; O2SAT 93
[2022-04-24] MEDS: amLODIPine Besylate 5 MG TABLET PO (09:35)
[2022-04-24] MEDS: Aspirin Enteric Coated 81 MG TABLET.DR PO (09:35)
[2022-04-24] MEDS: Isosorbide Mononitrate 30 MG TAB.ER.24H PO (09:35)
[2022-04-24] MEDS: Sertraline HCL 100 MG TABLET PO (09:35)
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
--- NOTE | 2022-04-24 15:14 | PC.NURSE ---
BP 175/80. Patient denies pain. Dr. Danielle notified. No new orders.
[2022-04-24 15:33] VITALS: BP 153/80; PULSE 79; RESP 18; TEMP 37.1; O2SAT 94
[2022-04-24 19:30] VITALS: BP 152/74; PULSE 75; RESP 18; TEMP 36.6; O2SAT 94
[2022-04-24] MEDS: Sennosides 8.6 MG TABLET 17.2 MG PO (21:40)
[2022-04-24] MEDS: Tamsulosin HCL 0.4 MG CAPSULE 0.8 MG PO (21:40)
[2022-04-25 04:00] VITALS: BP 160/90; PULSE 62; RESP 18; TEMP 36.8; O2SAT 92
[2022-04-25] MEDS: Acetaminophen 325 MG TABLET 650 MG PO ×4 (05:41→21:40)
[2022-04-25] MEDS: Levothyroxine Sodium 50 MCG TABLET PO (05:41)
[2022-04-25 07:56] VITALS: BP 180/81; PULSE 72; RESP 19; TEMP 36.3; O2SAT 93
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
[2022-04-25] MEDS: Isosorbide Mononitrate 30 MG TAB.ER.24H PO (10:35)
[2022-04-25] MEDS: Aspirin Enteric Coated 81 MG TABLET.DR PO (10:36)
[2022-04-25] MEDS: Sertraline HCL 100 MG TABLET PO (10:36)
[2022-04-25] MEDS: amLODIPine Besylate 5 MG TABLET PO (10:36)
[2022-04-25] MEDS: 0.9 % Sodium Chloride Flush 3 ML SYRINGE IVFLUSH (10:37)
[2022-04-25 15:15] VITALS: BP 135/66; PULSE 68; RESP 17; TEMP 36.4; O2SAT 95
[2022-04-25] MEDS: Phenazopyridine HCL 100 MG TABLET PO ×2 (16:12→18:17)
[2022-04-25 19:22] VITALS: BP 138/65; PULSE 67; RESP 17; TEMP 36.7; O2SAT 95
[2022-04-25] MEDS: Sennosides 8.6 MG TABLET 17.2 MG PO (20:24)
[2022-04-25] MEDS: Tamsulosin HCL 0.4 MG CAPSULE 0.8 MG PO (20:24)
[2022-04-25] MEDS: Docusate Sodium 100 MG CAPSULE PO (20:27)
[2022-04-26 03:55] VITALS: BP 172/84; PULSE 70; RESP 16; TEMP 36.6; O2SAT 94
[2022-04-26] MEDS: Acetaminophen 325 MG TABLET 650 MG PO ×3 (05:02→17:17)
[2022-04-26] MEDS: Levothyroxine Sodium 50 MCG TABLET PO (05:02)
[2022-04-26 08:00] VITALS: BP 180/78; PULSE 63; RESP 18; TEMP 36.4; O2SAT 95
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
[2022-04-26] MEDS: Sertraline HCL 100 MG TABLET PO (10:36)
[2022-04-26] MEDS: Aspirin Enteric Coated 81 MG TABLET.DR PO (10:36)
[2022-04-26] MEDS: Isosorbide Mononitrate 30 MG TAB.ER.24H PO (10:36)
[2022-04-26] MEDS: Phenazopyridine HCL 100 MG TABLET PO ×2 (10:36→17:18)
[2022-04-26] MEDS: 0.9 % Sodium Chloride Flush 3 ML SYRINGE IVFLUSH (10:37)
[2022-04-26] MEDS: amLODIPine Besylate 10 MG TABLET PO (10:37)
[2022-04-26 16:00] VITALS: BP 138/70; PULSE 85; RESP 18; TEMP 37.2; O2SAT 93
[2022-04-26 20:00] VITALS: BP 154/78; PULSE 67; RESP 16; TEMP 37.1; O2SAT 94
[2022-04-26] MEDS: Sennosides 8.6 MG TABLET 17.2 MG PO (20:16)
[2022-04-26] MEDS: Tamsulosin HCL 0.4 MG CAPSULE 0.8 MG PO (20:16)
--- NOTE | 2022-04-27 00:45 | PC.NURSE ---
Patient had faith removed at 11:11 on 04/26 per MD, was able to void by incontinence of large amount before 17:11. However he was bladder scanned for >798. MD notified and straight cathed per MD for 700 ccs. This urine was orange colored and had 2 tiny clots in it. MD notified and new order to replace faith. Faith was placed with another RN new 12 Fr faith with 10 cc balloon inserted and well tolerated. Patient also alert and oriented x4 today, and MD aware. Discussed psychiatric re-eval possibility with .
[2022-04-27 03:10] VITALS: BP 162/74; PULSE 74; RESP 18; TEMP 36.9; O2SAT 95
[2022-04-27] MEDS: Acetaminophen 325 MG TABLET 650 MG PO ×2 (04:03→17:33)
[2022-04-27] MEDS: Levothyroxine Sodium 50 MCG TABLET PO (04:04)
[2022-04-27 07:13] VITALS: BP 141/80; PULSE 79; RESP 17; TEMP 37.4; O2SAT 96
[2022-04-27 09:22] LABS: Hematocrit 35.2 % (42.0-52.0); Hemoglobin 11.5 g/dl (14.0-18.0); Mean Corpuscular HGB Conc 32.7 g/dl (31.0-36.0); Mean Corpuscular Hemoglobin 27.2 pg (27.0-33.0); Mean Corpuscular Volume 83.2 fL (80.0-98.0); Mean Platelet Volume 10.1 fL (9.4-12.4); Platelet Count 225 X10*3/uL (160-400); Red Blood Count 4.23 X10*6/uL (4.60-5.80); Red Cell Distribution Width 14.9 % (11.0-16.0); White Blood Count 7.4 X10*3/uL (4.8-10.8)
[2022-04-27 09:39] LABS: Anion Gap 12 (12-20); Blood Urea Nitrogen 24 mg/dL (9-16); Calcium 8.9 mg/dL (8.4-10.2); Carbon Dioxide 23 mmol/L (22-29); Chloride 106 mmol/L (96-108); Estimated Glomerular Filt Rate 52; Glucose Random 102 mg/dL (60-115); Potassium 3.7 mmol/L (3.3-5.1); Sodium 137 mmol/L (135-145)
[2022-04-27] MEDS: Sertraline HCL 100 MG TABLET PO (09:51)
[2022-04-27] MEDS: Aspirin Enteric Coated 81 MG TABLET.DR PO (09:51)
[2022-04-27] MEDS: Isosorbide Mononitrate 30 MG TAB.ER.24H PO (09:51)
[2022-04-27] MEDS: amLODIPine Besylate 10 MG TABLET PO (09:51)
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
[2022-04-27 15:15] VITALS: BP 162/79; RESP 18; O2SAT 94
[2022-04-27 18:57] VITALS: BP 115/58; PULSE 82; RESP 18; TEMP 37; O2SAT 93
[2022-04-27] MEDS: Sennosides 8.6 MG TABLET 17.2 MG PO (20:12)
[2022-04-27] MEDS: Docusate Sodium 100 MG CAPSULE PO (20:12)
[2022-04-27] MEDS: Tamsulosin HCL 0.4 MG CAPSULE 0.8 MG PO (20:12)
[2022-04-28 03:20] VITALS: BP 175/79; PULSE 81; RESP 18; TEMP 37.7; O2SAT 94
[2022-04-28] MEDS: Levothyroxine Sodium 50 MCG TABLET PO (05:34)
[2022-04-28 07:11] VITALS: BP 172/80; PULSE 80; RESP 19; TEMP 36.9; O2SAT 94
[2022-04-28] MEDS: Aspirin Enteric Coated 81 MG TABLET.DR PO (09:25)
[2022-04-28] MEDS: Isosorbide Mononitrate 30 MG TAB.ER.24H PO (09:25)
[2022-04-28] MEDS: amLODIPine Besylate 10 MG TABLET PO (09:25)
[2022-04-28] MEDS: Sertraline HCL 100 MG TABLET PO (09:25)
[2022-04-28 14:52] VITALS: BP 169/74; PULSE 79; RESP 18; TEMP 37.1; O2SAT 93
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
[2022-04-28 19:23] VITALS: BP 150/76; PULSE 80; RESP 18; TEMP 36.6; O2SAT 92
[2022-04-28] MEDS: Acetaminophen 325 MG TABLET 650 MG PO (20:40)
[2022-04-28] MEDS: Tamsulosin HCL 0.4 MG CAPSULE 0.8 MG PO (20:40)
[2022-04-28] MEDS: Sennosides 8.6 MG TABLET 17.2 MG PO (20:40)
[2022-04-29 03:18] VITALS: BP 168/79; PULSE 72; RESP 18; TEMP 37.2; O2SAT 93
[2022-04-29] MEDS: Acetaminophen 325 MG TABLET 650 MG PO ×4 (03:50→18:32)
[2022-04-29] MEDS: Levothyroxine Sodium 50 MCG TABLET PO (05:32)
[2022-04-29 07:15] VITALS: BP 175/81; PULSE 68; RESP 18; TEMP 37.1; O2SAT 93
[2022-04-29] MEDS: Aspirin Enteric Coated 81 MG TABLET.DR PO (09:26)
[2022-04-29] MEDS: amLODIPine Besylate 10 MG TABLET PO (09:26)
[2022-04-29] MEDS: Isosorbide Mononitrate 30 MG TAB.ER.24H PO (09:26)
[2022-04-29] MEDS: Sertraline HCL 100 MG TABLET PO (09:27)
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
[2022-04-29] MEDS: lisinopriL 5 MG TABLET PO (14:39)
--- NOTE | 2022-04-29 14:45 | PC.NURSE ---
vianney mc. DTV #[id number]
[2022-04-29 14:46] VITALS: BP 164/71
[2022-04-29 15:05] VITALS: BP 156/68; PULSE 68; RESP 20; TEMP 37.4; O2SAT 93
--- NOTE | 2022-04-29 19:09 | PC.NURSE ---
1900 patient placed on commode by PCT, pct noticed new weakness when attempting to transfer to commode. patient leaned to right side while sitting on commode, no facial droop , slurred speech or other deficits noted except right palmar grasp substantially less than left, PCT reports that patient normally transfers without difficulty.
[2022-04-29 19:46] VITALS: BP 146/66; PULSE 74; RESP 18; TEMP 37.4; O2SAT 94
[2022-04-29] MEDS: Tamsulosin HCL 0.4 MG CAPSULE 0.8 MG PO (22:31)
[2022-04-29] MEDS: Sennosides 8.6 MG TABLET 17.2 MG PO (22:31)
[2022-04-30] MEDS: Acetaminophen 325 MG TABLET 650 MG PO ×4 (03:43→21:57)
--- NOTE | 2022-04-30 06:15 | PM.EVENT ---
Event Note Date of Service: 04/30/22 Event Note: patient noted to be leaning to the right by nurses, has no other neurological deficits, will obtain head CT Time Spent With Patient Time: Total time managing care of this patient today ____ minutes.
[2022-04-30] MEDS: Levothyroxine Sodium 50 MCG TABLET PO (06:24)
[2022-04-30 07:55] VITALS: BP 163/72; PULSE 67; RESP 20; TEMP 37.1; O2SAT 95
[2022-04-30] MEDS: lisinopriL 5 MG TABLET PO (09:08)
[2022-04-30] MEDS: Sertraline HCL 100 MG TABLET PO (09:08)
[2022-04-30] MEDS: amLODIPine Besylate 10 MG TABLET PO (09:08)
[2022-04-30] MEDS: Aspirin Enteric Coated 81 MG TABLET.DR PO (09:08)
[2022-04-30] MEDS: Isosorbide Mononitrate 30 MG TAB.ER.24H PO (09:08)
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
[2022-04-30 16:00] VITALS: BP 113/56; PULSE 71; RESP 18; TEMP 37; O2SAT 93
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
[2022-04-30 20:00] VITALS: BP 134/64; PULSE 69; RESP 18; TEMP 37; O2SAT 92
[2022-04-30] MEDS: Tamsulosin HCL 0.4 MG CAPSULE 0.8 MG PO (21:33)
[2022-04-30] MEDS: Sennosides 8.6 MG TABLET 17.2 MG PO (21:33)
[2022-04-30] MEDS: 0.9 % Sodium Chloride Flush 3 ML SYRINGE IVFLUSH (21:36)
[2022-05-01 04:00] VITALS: BP 157/70; PULSE 65; RESP 18; TEMP 36.8; O2SAT 98
[2022-05-01] MEDS: Levothyroxine Sodium 50 MCG TABLET PO (05:25)
[2022-05-01 07:29] VITALS: BP 173/78; PULSE 63; RESP 18; TEMP 36.3; O2SAT 93
[2022-05-01] MEDS: Aspirin Enteric Coated 81 MG TABLET.DR PO (10:19)
[2022-05-01] MEDS: amLODIPine Besylate 10 MG TABLET PO (10:19)
[2022-05-01] MEDS: Acetaminophen 325 MG TABLET 650 MG PO ×3 (10:20→21:04)
[2022-05-01] MEDS: Sertraline HCL 100 MG TABLET PO (10:20)
[2022-05-01] MEDS: Isosorbide Mononitrate 30 MG TAB.ER.24H PO (10:20)
[2022-05-01] MEDS: 0.9 % Sodium Chloride Flush 3 ML SYRINGE IVFLUSH ×3 (10:21→21:05)
[2022-05-01] MEDS: lisinopriL 5 MG TABLET PO (10:25)
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
[2022-05-01 15:17] VITALS: BP 138/69; PULSE 72; RESP 20; TEMP 37; O2SAT 96
[2022-05-01 19:23] VITALS: BP 130/59; PULSE 61; RESP 18; TEMP 36.7; O2SAT 97
[2022-05-01] MEDS: Sennosides 8.6 MG TABLET 17.2 MG PO (21:04)
[2022-05-01] MEDS: Tamsulosin HCL 0.4 MG CAPSULE 0.8 MG PO (21:05)
[2022-05-02 04:00] VITALS: BP 168/74; PULSE 68; RESP 17; TEMP 36.3; O2SAT 96
[2022-05-02] MEDS: Levothyroxine Sodium 50 MCG TABLET PO (04:59)
[2022-05-02] MEDS: Acetaminophen 325 MG TABLET 650 MG PO ×3 (04:59→21:45)
[2022-05-02 06:57] VITALS: BP 145/67; PULSE 80; RESP 20; TEMP 36.3; O2SAT 98
[2022-05-02] MEDS: Isosorbide Mononitrate 30 MG TAB.ER.24H PO (09:30)
[2022-05-02] MEDS: Aspirin Enteric Coated 81 MG TABLET.DR PO (09:31)
[2022-05-02] MEDS: amLODIPine Besylate 10 MG TABLET PO (09:31)
[2022-05-02] MEDS: Sertraline HCL 100 MG TABLET PO (09:31)
[2022-05-02] MEDS: lisinopriL 5 MG TABLET PO (09:31)
[2022-05-02] MEDS: 0.9 % Sodium Chloride Flush 3 ML SYRINGE IVFLUSH ×3 (09:32→21:45)
[2022-05-02 15:53] VITALS: BP 133/56; PULSE 76; RESP 18; TEMP 36.8; O2SAT 97
--- NOTE | 2022-05-02 16:20 | PC.NURSE ---
Pt has a faith now no straight cath, Pt order of faith was provided by dr Jackson Shine. Pt still has urinary rentention. will continoue to monitor.
[2022-05-02 20:00] VITALS: BP 110/63; PULSE 79; RESP 17; TEMP 36.6; O2SAT 96
[2022-05-02] MEDS: Tamsulosin HCL 0.4 MG CAPSULE 0.8 MG PO (21:45)
[2022-05-02] MEDS: Sennosides 8.6 MG TABLET 17.2 MG PO (21:45)
[2022-05-03 03:40] VITALS: BP 140/64; PULSE 73; RESP 17; TEMP 36.7; O2SAT 95
[2022-05-03] MEDS: Acetaminophen 325 MG TABLET 650 MG PO ×3 (04:55→22:13)
[2022-05-03] MEDS: Levothyroxine Sodium 50 MCG TABLET PO (04:55)
[2022-05-03 07:35] VITALS: BP 136/66; PULSE 63; RESP 16; TEMP 36; O2SAT 94
[2022-05-03] MEDS: Isosorbide Mononitrate 30 MG TAB.ER.24H PO (07:56)
[2022-05-03] MEDS: amLODIPine Besylate 10 MG TABLET PO (07:56)
[2022-05-03] MEDS: Aspirin Enteric Coated 81 MG TABLET.DR PO (07:56)
[2022-05-03] MEDS: 0.9 % Sodium Chloride Flush 3 ML SYRINGE IVFLUSH ×3 (07:57→21:07)
[2022-05-03] MEDS: lisinopriL 5 MG TABLET PO (07:57)
[2022-05-03] MEDS: Sertraline HCL 100 MG TABLET PO (07:57)
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
[2022-05-03 16:00] VITALS: BP 132/62; PULSE 69; RESP 17; TEMP 36.6; O2SAT 96
[2022-05-03 19:14] VITALS: BP 142/65; PULSE 70; RESP 17; TEMP 36.6; O2SAT 95
[2022-05-03] MEDS: Tamsulosin HCL 0.4 MG CAPSULE 0.8 MG PO (21:06)
[2022-05-03] MEDS: Sennosides 8.6 MG TABLET 17.2 MG PO (21:07)
[2022-05-04 03:18] VITALS: BP 175/70; PULSE 66; RESP 17; TEMP 36.1; O2SAT 97
[2022-05-04] MEDS: Acetaminophen 325 MG TABLET 650 MG PO ×3 (03:59→21:30)
[2022-05-04] MEDS: Levothyroxine Sodium 50 MCG TABLET PO (05:29)
[2022-05-04 07:57] VITALS: BP 187/84; PULSE 68; RESP 17; TEMP 37.3; O2SAT 96
[2022-05-04] MEDS: Aspirin Enteric Coated 81 MG TABLET.DR PO (08:17)
[2022-05-04] MEDS: lisinopriL 5 MG TABLET PO (08:17)
[2022-05-04] MEDS: Sertraline HCL 100 MG TABLET PO (08:17)
[2022-05-04] MEDS: Isosorbide Mononitrate 30 MG TAB.ER.24H PO (08:17)
[2022-05-04] MEDS: amLODIPine Besylate 10 MG TABLET PO (08:17)
[2022-05-04] MEDS: 0.9 % Sodium Chloride Flush 3 ML SYRINGE IVFLUSH ×3 (08:22→22:47)
--- NOTE | 2022-05-04 11:13 | MHC.CM.PN ---
PT IS MEDICALLY CLEAR FOR DC HOWEVER REQUIRES LTC PLACEMENT [employer] HAVE BEEN OBTAINED A [place] APPLICATION HAS BEEN INITIATED SNF REFERRALS NOW BROADCASTED
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
[2022-05-04 16:00] VITALS: BP 176/77; PULSE 72; RESP 17; TEMP 36.6; O2SAT 97
[2022-05-04 19:34] VITALS: BP 133/66; PULSE 63; RESP 16; TEMP 36.6; O2SAT 97
[2022-05-04] MEDS: Sennosides 8.6 MG TABLET 17.2 MG PO (21:30)
[2022-05-04] MEDS: Tamsulosin HCL 0.4 MG CAPSULE 0.8 MG PO (21:30)
[2022-05-05 04:00] VITALS: BP 145/70; PULSE 70; RESP 17; TEMP 36.6; O2SAT 95
[2022-05-05] MEDS: Acetaminophen 325 MG TABLET 650 MG PO (04:19)
[2022-05-05] MEDS: Levothyroxine Sodium 50 MCG TABLET PO (05:16)
[2022-05-05 07:48] VITALS: BP 143/67; PULSE 62; RESP 17; TEMP 37.2; O2SAT 97
--- NOTE | 2022-05-05 09:19 | MHC.CM.PN ---
CALL FROM [facility] ([place]) CONTACT NUMBER FOR GUARDIAN/CONSERVATOR (JEAN-PIERRE) GIVEN [phone] MESSAGE LEFT FOR JEAN-PIERRE TO CALL BACK TO ASK WHEN THE PROCESS OF LTC APPLICATION COMMENCED
[2022-05-05] MEDS: Isosorbide Mononitrate 30 MG TAB.ER.24H PO (10:17)
[2022-05-05] MEDS: amLODIPine Besylate 10 MG TABLET PO (10:17)
[2022-05-05] MEDS: lisinopriL 5 MG TABLET PO (10:17)
[2022-05-05] MEDS: 0.9 % Sodium Chloride Flush 3 ML SYRINGE IVFLUSH ×2 (10:17→16:32)
[2022-05-05] MEDS: Aspirin Enteric Coated 81 MG TABLET.DR PO (10:21)
[2022-05-05] MEDS: Sertraline HCL 100 MG TABLET PO (10:23)
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
--- NOTE | 2022-05-05 14:48 | MHC.CM.PN ---
CALL FROM [facility] SPOKE WITH GUARDIAN/NICKY WHO HAS NOT STARTED THE [place] APPLICATION AND PLANS TO T/W ASKED THAT [facility]UYET START THE PROCESS HERE, THE NEED TO DC IS URGENT IN ORDER TO ACCOMODATE AVAILABLE BEDS. T/W DISCUSSED WITH REBAR WORKER. AT THIS TIME, BANDAR WILL START THE PROCESS
[2022-05-05 15:15] VITALS: BP 99/50; PULSE 71; RESP 16; TEMP 37.2; O2SAT 96
--- NOTE | 2022-05-05 15:34 | MHC.CM.PN ---
SNF REFERRALS UPDATED BETZY ODOM AT [place], AND [facility] CURRENTLY FOLLOWING
[2022-05-05 19:50] VITALS: BP 133/66; PULSE 80; RESP 16; TEMP 37; O2SAT 96
[2022-05-05] MEDS: Sennosides 8.6 MG TABLET 17.2 MG PO (23:30)
[2022-05-05] MEDS: Tamsulosin HCL 0.4 MG CAPSULE 0.8 MG PO (23:30)
[2022-05-06] MEDS: 0.9 % Sodium Chloride Flush 3 ML SYRINGE IVFLUSH ×4 (01:08→20:03)
[2022-05-06] MEDS: Acetaminophen 325 MG TABLET 650 MG PO ×4 (01:10→15:15)
[2022-05-06 03:56] VITALS: BP 128/58; PULSE 58; RESP 17; TEMP 36.9; O2SAT 94
[2022-05-06] MEDS: Levothyroxine Sodium 50 MCG TABLET PO (05:05)
[2022-05-06 07:44] VITALS: BP 117/59; PULSE 59; RESP 16; TEMP 36.5; O2SAT 95
[2022-05-06] MEDS: Aspirin Enteric Coated 81 MG TABLET.DR PO (09:53)
[2022-05-06] MEDS: amLODIPine Besylate 10 MG TABLET PO (09:53)
[2022-05-06] MEDS: Isosorbide Mononitrate 30 MG TAB.ER.24H PO (09:53)
[2022-05-06] MEDS: lisinopriL 5 MG TABLET PO (09:53)
[2022-05-06] MEDS: Sertraline HCL 100 MG TABLET PO (09:54)
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
--- NOTE | 2022-05-06 11:01 | MHC.CM.PN ---
Addendum entered by Suri Forrest RN 05/06/22 11:04: Message left for Jean-Pierre at [phone] explaining bed offer from [facility] and need for financials Call back number for this senior grant writer left on voicemail Original Note: [facility] IS WILLING TO OFFER PENDING [facility] FIN[employer]CIALS T/W TO INFORM JEAN-PIERRE MADRID
[2022-05-06 16:00] VITALS: BP 122/59; PULSE 62; RESP 16; TEMP 37; O2SAT 96
[2022-05-06 19:53] VITALS: BP 154/61; PULSE 63; RESP 16; TEMP 37.4; O2SAT 94
[2022-05-06] MEDS: Sennosides 8.6 MG TABLET 17.2 MG PO (20:03)
[2022-05-06] MEDS: Tamsulosin HCL 0.4 MG CAPSULE 0.8 MG PO (20:03)
[2022-05-07 03:52] VITALS: BP 144/75; PULSE 69; RESP 18; TEMP 36.8; O2SAT 97
[2022-05-07] MEDS: Levothyroxine Sodium 50 MCG TABLET PO (05:11)
[2022-05-07] MEDS: Acetaminophen 325 MG TABLET 650 MG PO ×4 (05:11→21:03)
[2022-05-07 07:39] VITALS: BP 154/67; PULSE 56; RESP 16; TEMP 37.2; O2SAT 97
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
[2022-05-07] MEDS: 0.9 % Sodium Chloride Flush 3 ML SYRINGE IVFLUSH ×3 (09:56→21:04)
[2022-05-07] MEDS: Sertraline HCL 100 MG TABLET PO (09:56)
[2022-05-07] MEDS: Isosorbide Mononitrate 30 MG TAB.ER.24H PO (09:56)
[2022-05-07] MEDS: Aspirin Enteric Coated 81 MG TABLET.DR PO (09:57)
[2022-05-07] MEDS: lisinopriL 5 MG TABLET PO (09:57)
[2022-05-07] MEDS: amLODIPine Besylate 10 MG TABLET PO (09:57)
--- NOTE | 2022-05-07 14:08 | MHC.CM.PN ---
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 SHE STATES I WILL WORK OUT THE DETAILS WITH PIA (FACILITY LIAISON) [employer] JESUS HAS BEEN STARTED WELL
[2022-05-07 15:17] VITALS: BP 155/67; PULSE 65; RESP 17; TEMP 36.3; O2SAT 97
--- NOTE | 2022-05-07 15:46 | MHC.CM.PN ---
PATIENT TO DC TO [facility] WEDNESDAY MORNING. MD AWARE. GUARDIAN AND UNIT AWARE. PASRR ALL SET COVERING ART GALLERY DIRECTOR AWARE IMM 05/07 IN CHART
--- NOTE | 2022-05-07 16:26 | MHC.CM.PN ---
PATIENT'S DAUGHTER, WILLIAN [phone] ALSO AWARE OF TOMORROW'S DC TO [facility]
[2022-05-07 19:18] VITALS: BP 149/68; PULSE 74; RESP 18; TEMP 36.3; O2SAT 98
[2022-05-07] MEDS: Tamsulosin HCL 0.4 MG CAPSULE 0.8 MG PO (21:03)
[2022-05-08 03:27] VITALS: BP 160/82; PULSE 69; RESP 18; TEMP 36.1; O2SAT 98
[2022-05-08] MEDS: Acetaminophen 325 MG TABLET 650 MG PO ×2 (05:19→10:34)
[2022-05-08] MEDS: Levothyroxine Sodium 50 MCG TABLET PO (05:19)
[2022-05-08 08:00] VITALS: BP 188/85; PULSE 71; RESP 18; TEMP 36.6; O2SAT 95
--- NOTE | 2022-05-08 10:25 | MHC.CM.PN ---
PT TO DC TODAY TO [facility] GUARDIAN, JEAN-PIERRE MADRID [phone] NOTIFIED VIA T/C BLS TRANSPORT [facility]IA [facility] SCHEDULED FOR 1300 HOURS
[2022-05-08] MEDS: lisinopriL 5 MG TABLET PO (10:34)
[2022-05-08] MEDS: Isosorbide Mononitrate 30 MG TAB.ER.24H PO (10:35)
[2022-05-08] MEDS: Aspirin Enteric Coated 81 MG TABLET.DR PO (10:35)
[2022-05-08] MEDS: amLODIPine Besylate 10 MG TABLET PO (10:35)
[2022-05-08] MEDS: Sertraline HCL 100 MG TABLET PO (10:35)
[2022-05-08] MEDS: 0.9 % Sodium Chloride Flush 3 ML SYRINGE IVFLUSH (10:36)
[2022-05-08 10:37] VITALS: BP 156/70; PULSE 75
--- NOTE | 2022-05-08 13:05 | P.DS_ITS ---
DS: Providers Provider Date of Service: 05/08/22 Date of admission: 03/30/22 14:47 Primary care physician: CORONA Carcamo Consults: 03/18/22 15:36 Consult to Psychiatry Stat Consulting Provider: Psych Covering Reason for consultation: unsafe to go home needs to discuss capacity 03/18/22 17:48 Consult to Care Team Stat Comment: Reason for consultation: delusions Attending physician on discharge: Joey Verdin Discharging clinician: Bree Livingston DS: Diagnosis Discharge Diagnosis (1) Subdural hemorrhage: Status: Acute (2) Vascular dementia: Status: Acute (3) Hypertension: Status: Acute (4) CKD (chronic kidney disease) stage 3, GFR 30-59 ml/min: Status: Acute DS: Summary Hospital Course Hospital Course: History and physical as per admitting provider This is an 81-year-old male with past medical history of vascular dementia, hypertension, hyperlipidemia, hypothyroidism, initially presented to the hospital 03/18 and is currently being managed under physician's observation in the ED awaiting [facility] developed hypotension and hypoxia in the ED. patient is alert, oriented to self but not to details.? Reports no chest pain, no trouble breathing, no abdominal pain , no nausea or vomiting, no diarrhea constipation, no urinary symptoms and no lower extremity edema or pain. On review of vitals it appears the patient started developing slight hypotension on the a.m. of 1222, was also documented to be hypoxic at 85% on room air Patient is currently on 5 L of nasal can satting 94% Labs are also found to be significant for WBC count of 6.2, hemoglobin of 10.2, hematocrit 33.1, sodium of 139, creatinine of 1.84 which is slightly elevated than his baseline of 1.6 earlier in this month, UA positive for leukocyte Estrace and WBC Patient's chest x-ray shows bibasilar atelectasis, abdominal pelvic CT shows severe constipation, likely stercoral colitis, there is also suggestion of bladder wall thickening and stranding of the perivascular fat Patient started on antibiotics and IV fluids will be admitted for further management . Initially presented with acute hypoxic respiratory failure likely secondary to hypotension with hypotension secondary to dehydration from poor oral intake. chronic subdural hematomas no documented falls or other traumas; reviewed by [facility]; no intervention indicated; remained asymptomatic vascular dementia stable and well compensated; continue sertraline Hematuria secondary to pulling Zaman catheter. Resolved HTN continue Imdur, amlodipine 10 mg daily, lisinopril 5 mg daily KUMAR CKD3. Resolved Secondary to dehydration and hypotension Treated with IV fluids hypothyroidism continue levothyroxine UTI Treated with IV antibiotics, negative urine culture Time Spent with Patient Time attestation: Total time managing care of this patient today ____ minutes. Discharge coordination time: Greater than 30 minutes Quality: Safe Use of Opioids Does Pt have an Active Cancer Diagnosis on the Problem List?: No Quality: Stroke Does the patient have a stroke diagnosis?: No Physical Exam Vital Signs: Vital Signs: Last Vital Signs Temp 97.8 F 05/08/22 08:00 Pulse 75 05/08/22 10:37 Resp 18 05/08/22 08:00 BP 156/70 H 05/08/22 10:37 Pulse Ox 95 05/08/22 08:00 O2 Del Method 05/08/22 08:00 O2 Flow Rate 5 04/17/22 04:00 BMI result Body Mass Index 23.6 Appearing in no acute distress head is normocephalic atraumatic eyes pupils are PERRLA sclera is anicteric mouth throat mucous membranes are intact and moist neck is supple no lymphadenopathy, no JVD noted lung sounds are clear to auscultation heart regular rate rhythm, clear S1, S2 positive bowel sounds, abdomen is soft, nontender neuro patient is alert and oriented to self anf place but not always situation Discharge Plan Discharge Anticipated Discharge Date/Time: 05/08/22 12:56 Patient Disposition: Xfer Inpatient Rehab Fac Discharge Diagnosis: Subdural hematoma Vascular dementia KUMAR Referrals: [facility] [place] [Outside] - 1 Week Kyle Ca FNP [Primary Care Provider] - 1 Week Discharge Medications: New amlodipine 10 mg Tablet 10 mg PO DAILY Qty: 30 0RF Protocol: Hold for SBP< HOLD for SBP < : 90 lisinopril 5 mg Tablet 5 mg PO DAILY Qty: 30 0RF Protocol: Hold for SBP< HOLD for SBP < : 90 Continued aspirin 81 mg Tablet,Delayed Release (Dr/Ec) 81 mg PO DAILY atorvastatin 80 mg Tablet 80 mg PO DAILY sennosides [senna] 8.6 mg Tablet 17.2 mg PO BEDTIME Rx Instructions: Pt takes 2 tablets at bedtime. isosorbide mononitrate 30 mg Tablet Extended Release 24 Hr 30 mg PO DAILY sertraline 100 mg Tablet 100 mg PO DAILY tamsulosin [Flomax] 0.4 mg Capsule 0.8 mg PO BEDTIME levothyroxine 50 mcg Tablet 50 mcg PO DAILY hydrochlorothiazide 12.5 mg tablet 1 tab PO DAILY Discontinued cefuroxime axetil 250 mg tablet 250 mg PO BID Qty: 18 0RF lisinopril 20 mg tablet 1 tab PO DAILY amlodipine 5 mg tablet 1 tab PO DAILY Discharge Orders: Discharge Order (Routine); Ordered 05/08/22 Ordered By: Bree Livingston Diet: Advance to usual diet Activity on Discharge: As tolerated Stand Alone Forms: Patient Portal Discharge page Care Plan Goals: complete resolution of symptoms Health Concerns: Subdural hematoma Vascular dementia KUMAR Plan of Treatment: Follow-up with primary care provider once discharged from rehab Take all medications as prescribed Assessment: see discharge summary
[2022-05-08 13:51] VITALS: BP 139/60; PULSE 73; RESP 20; TEMP 36.4; O2SAT 96
--- NOTE | 2022-05-08 13:55 | PC.NURSE ---
Pt alert and oriented to self and place, denies having any pain. Pt. discharged to [facility] [place] via ambulance @ 1356. Nurse to nurse report given.
== END 2022-05-08 14:00 | DRG 314 ==
LOC: HO.ED 04-01 13:35 → HO.EDOVER 04-10 03:52 → HO.S3 04-10 08:51
PROVIDERS: Internal Medicine; Nurse Practitioner Family; Physician Assistant; Physician Assistant Medical; Social Worker; Student in an Organized Health Care Education/Training Program; Admitting Provider Internal Medicine; Emergency Provider Emergency Medicine Emergency Medical Services; PCP Nurse Practitioner Family; Visit Provider Nurse Practitioner Acute Care
DX: I95.9 Hypotension, unspecified (principal); I62.01 Nontraumatic acute subdural hemorrhage; J96.01 Acute respiratory failure with hypoxia; I62.03 Nontraumatic chronic subdural hemorrhage; N39.0 Urinary tract infection, site not specified; N17.9 Acute kidney failure, unspecified; T83.83XA Hemorrhage due to genitourinary prosthetic devices, implants and grafts, initial encounter; Y73.8 Miscellaneous gastroenterology and urology devices associated with adverse incidents, not elsewhere classified; E86.0 Dehydration; F01.50 Vascular dementia, unspecified severity, without behavioral disturbance, psychotic disturbance, mood disturbance, and anxiety; E03.9 Hypothyroidism, unspecified; E78.5 Hyperlipidemia, unspecified; I12.9 Hypertensive chronic kidney disease with stage 1 through stage 4 chronic kidney disease, or unspecified chronic kidney disease; R33.9 Retention of urine, unspecified; K59.00 Constipation, unspecified; Z75.1 Person awaiting admission to adequate facility elsewhere; R31.9 Hematuria, unspecified; Z59.01 Sheltered homelessness; Z88.5 Allergy status to narcotic agent; Z88.8 Allergy status to other drugs, medicaments and biological substances; Z79.82 Long term (current) use of aspirin; Z79.890 Hormone replacement therapy; Z79.899 Other long term (current) drug therapy
CPT/HCPCS: 0241U; 36415; 51702; 70450; 71045; 72125; 74176; 78580; 80048; 80053; 80076; 80307; 81001; 82077; 83605; 83690; 83880; 85025; 85027; 85610; 85730; 87040; 87086; 87088; 87186; 87635; 90715; 93005; 99285; A9540; C1758; J0696; J1200; J1650; J2270; J2405